=== PATIENT | female | born 2000 | race Caucasian/White ===

== ENCOUNTER 2019-04-26 19:49 | Emergency (ER) | payer BC, SELFPAY ==
--- NOTE | 2019-04-26 19:52 | ED.GENADULT ---
HPI - General Adult General Chief complaint: Upper Respiratory Infection Stated complaint: sore throat/burnett Time Seen by Provider: 04/26/19 19:52 Source: patient Mode of arrival: ambulatory Limitations: no limitations History of Present Illness HPI narrative: 18-year-old female patient presents to the [facility] with complaints of sore throat and fever that started today. Patient states she has been taking ibuprofen for symptoms. Denies any ear pain, runny nose, coughing, chest pain, shortness breath, abdominal pain, nausea, vomiting or diarrhea. Related Data Allergies Allergy/AdvReac Type Severity Reaction Status Date / Time AMOXICILLIN TRIHYDRATE Allergy Unknown RASH Uncoded 11/20/17 10:20 POTASSIUM CLAVULANATE Allergy Unknown RASH Uncoded 11/20/17 10:20 Review of Systems Review of Systems: Narrative: CONSTITUTIONAL: Positive fever, denies chills, or sweats. EYES: Denies visual changes, redness, or discharge. ENT: Denies rhinorrhea, congestion, positive sore throat, denies otalgia. CARDIOVASCULAR: Denies chest pain, palpitations, or edema. RESPIRATORY: Denies cough or dyspnea. GASTROINTESTINAL: Denies abdominal pain, nausea, vomiting, or diarrhea. GENITOURINARY: Denies dysuria or hematuria. SKIN: Denies rash or itching. MUSCULOSKELETAL: Denies back pain, joint pain, or myalgia. NEUROLOGIC: Denies headache, numbness, or weakness. PSYCHIATRIC: Denies anxiety or depression. PMFSH Comments At the time of my signature I agree with nursing past medical history, surgical, social, and family history. There is no relevant family history pertinent to the presenting complaint. Exam Narrative: Exam Narrative: GENERAL: Well-appearing, well-nourished, and in no acute distress. HEAD: Normocephalic, atraumatic. EYES: PERRLA and EOMI. ENT: Nares clear, no rhinorrhea or epistaxis. Mucous membranes moist. Posterior pharynx with 2+ tonsil enlargement, white exudates noted on bilateral sides and erythema. Bilateral TMs are clear with no erythema or foreign bodies in the canal. NECK: Supple. No lymphadenopathy CHEST: Clear to auscultation. No respiratory distress. HEART: Regular rate and rhythm. No murmur heard. Normal peripheral pulses. ABDOMEN: Soft, nontender, nondistended, normal active bowel sounds. EXTREMITIES: Normal range of motion. No edema. SKIN: Warm, dry, no rash. NEURO: No focal deficits. Alert and oriented x3. Course Vital Signs Vital signs: Vital Signs Temperature 38.1 C H 04/26/19 19:58 Pulse Rate 137 H 04/26/19 19:58 Respiratory Rate 20 04/26/19 19:58 Blood Pressure 145/88 H 04/26/19 19:58 Pulse Oximetry 100 04/26/19 19:58 Temperature 38.1 C H 04/26/19 19:58 Pulse Rate 137 H 04/26/19 19:58 Respiratory Rate 20 04/26/19 19:58 Blood Pressure 145/88 H 04/26/19 19:58 Pulse Oximetry 100 04/26/19 19:58 Vital signs reviewed. Medical Decision Making Differential Diagnosis Differential Diagnosis: Differential diagnosis: Allergic rhinitis, chronic sinusitis, tonsillitis, acute sinusitis, infectious mononucleosis, seasonal influenza, pertussis, diphtheria, meningococcal disease, viral syndrome, viral bronchitis, RSV. Discussed with patient that she is positive today for strep. Discussed with her we will discharge her home with an antibiotic and she can take Tylenol ibuprofen for pain, warm salt water gargles clean the back of the throat. Discussed with her I will write her off of work for tomorrow. Patient verbalized understanding denies any other questions or concerns at this time. Vital Signs Vital Signs: Vital Signs Temperature 38.1 C H 04/26/19 19:58 Pulse Rate 137 H 04/26/19 19:58 Respiratory Rate 04/26/19 19:58 Blood Pressure 145/88 H 04/26/19 19:58 Pulse Oximetry 100 04/26/19 19:58 Temperature 38.1 C H 04/26/19 19:58 Pulse Rate 137 H 04/26/19 19:58 Respiratory Rate 04/26/19 19:58 Blood Pressure 145/88 H 04/26/19 19:58 Pulse Oximetry 100 04/26/19 19:58
[2019-04-26 19:58] VITALS: BP 145/88; PULSE 137; RESP 20; TEMP 38.1; O2SAT 100
== END 2019-04-26 20:03 | disposition home or self-care (01) ==
PROVIDERS: Emergency Provider Nurse Practitioner Family; PCP Family Medicine
DX: J02.9 Acute pharyngitis, unspecified (principal)
CPT/HCPCS: 87880; 99213; G0463

== ENCOUNTER 2021-06-23 16:29 | Emergency (ER) | payer BC, SELFPAY ==
[2021-06-23 16:36] VITALS: BP 133/76; PULSE 90; RESP 20; TEMP 36.8; O2SAT 100
--- NOTE | 2021-06-23 17:03 | ED.URI ---
HPI - URI/Sore Throat General Chief Complaint: Upper Respiratory Infection Stated Complaint: sore throat congestion Time Seen by Provider: 06/23/21 16:57 Source: patient and RN notes reviewed Mode of arrival: ambulatory Limitations: no limitations History of Present Illness HPI Narrative: Patient presents today complaining of a 2-day history of sore throat, congestion, sweats and chills. Denies any additional symptoms to include cough, nausea, vomiting, diarrhea. Currently rates her pain 3/10 and has been taking Sudafed and ibuprofen with some relief. No recent antibiotic use. 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 MD elicited complaint: sore throat Related Data Home Medications Medication Instructions Recorded Confirmed levonorgestrel 20 mcg/24 hours (7 1 device INTRAUTERINE ONCE 05/25/21 05/25/21 yrs) 52 mg intrauterine device Allergies Allergy/AdvReac Type Severity Reaction Status Date / Time AMOXICILLIN TRIHYDRATE Allergy Unknown RASH Uncoded 06/23/21 16:46 POTASSIUM CLAVULANATE Allergy Unknown RASH Uncoded 06/23/21 16:46 Review of Systems Review of Systems: CONSTITUTIONAL: Denies body aches, fever. + Sweats, chills EYES: Denies visual changes, redness, or discharge. ENT: Denies rhinorrhea, or otalgia.+ Sore throat, congestion CARDIOVASCULAR: Denies chest pain, palpitations, or edema. RESPIRATORY: Denies cough or dyspnea. GASTROINTESTINAL: Denies abdominal pain, nausea, vomiting, or diarrhea. GENITOURINARY: Denies dysuria or hematuria. SKIN: Denies rash, itching, or wounds. MUSCULOSKELETAL: Denies back pain, joint pain, or myalgia. NEUROLOGIC: Denies headache, numbness, tingling, or weakness. PSYCH: Denies depression or anxiety. 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 Please see nursing chart for further information. There is no relevant family history pertinent to the presenting complaint Exam Narrative: GENERAL: Well-appearing, well-nourished, and in no acute distress. HEAD: Normocephalic, atraumatic. EYES: EOMI. No redness or drainage. Conjunctivae normal. ENT: Mucous membranes pink and moist. Nares clear. No rhinorrhea. TMs normal bilaterally. Throat erythematous with mild edema. No exudate. Uvula midline. NECK: Normal AROM. Supple. No lymphadenopathy. CHEST: No respiratory distress. Clear to auscultation. HEART: Regular rate and rhythm. No murmur appreciated. Normal peripheral pulses. EXTREMITIES: Normal range of motion. No edema. SKIN: Warm, dry, no rash. Capillary refill normal. Normal skin turgor. NEURO: No focal deficits. Alert and oriented x3. Gait steady. PSYCH: Normal affect. No signs of depression or anxiety. Course Course Level of Care: Express Care Visit Vital Signs Vital signs: Vital Signs Temperature 98.3 F 06/23/21 16:36 Pulse Rate 90 06/23/21 16:36 Respiratory Rate 20 06/23/21 16:36 Blood Pressure 133/76 06/23/21 16:36 Pulse Oximetry 100 06/23/21 16:36 Temperature 98.3 F 06/23/21 16:36 Pulse Rate 90 06/23/21 16:36 Respiratory Rate 20 06/23/21 16:36 Blood Pressure 133/76 06/23/21 16:36 Pulse Oximetry 100 06/23/21 16:36 Reviewed. Pt has bee
== END 2021-06-23 17:10 | disposition home or self-care (01) ==
PROVIDERS: Emergency Provider Nurse Practitioner; PCP Family Medicine
DX: J02.0 Streptococcal pharyngitis (principal)
CPT/HCPCS: 87880; 99213; G0463

== ENCOUNTER 2021-10-13 16:21 | Emergency (ER) | payer BC, SELFPAY ==
[2021-10-13 16:26] VITALS: BP 134/77; PULSE 88; RESP 16; TEMP 36.7; O2SAT 100
--- NOTE | 2021-10-13 16:42 | ED.URI ---
HPI - URI/Sore Throat General Chief Complaint: Upper Respiratory Infection Stated Complaint: Headache/Congestion/Sore Throat Time Seen by Provider: 10/13/21 16:42 Source: patient and RN notes reviewed Mode of arrival: ambulatory Limitations: no limitations History of Present Illness HPI Narrative: 21-year-old female presents to the [facility] with headache, congestion and sore throat. Known COVID exposure. Denies fevers. No treatment prior to arrival symptoms for less than 24 hours Reports taken a home COVID test which she reports is negative Related Data Home Medications Medication Instructions Recorded Confirmed levonorgestrel 20 mcg/24 hours (7 1 device intrauterine ONCE 05/25/21 05/25/21 yrs) 52 mg intrauterine device (Mirena) Allergies Allergy/AdvReac Type Severity Reaction Status Date / Time AMOXICILLIN TRIHYDRATE Allergy Unknown RASH Uncoded 08/22/21 14:08 POTASSIUM CLAVULANATE Allergy Unknown RASH Uncoded 08/22/21 14:08 Review of Systems Review of Systems: All systems reviewed & are unremarkable except as noted in HPI and below Constitutional: Constitutional: Reports no additional constitutional complaints, Denies chills and Denies fever(s) Eyes: Eyes: Reports no additional eye complaints ENT: Reports as per HPI, Reports nasal congestion and Reports sore throat Cardiovascular: Cardiovascular: Reports no additional cardiovascular complaints Respiratory: Respiratory: Reports no additional respiratory complaints Gastrointestinal: Gastrointestinal: Reports no additional gastrointestinal complaints Musculoskeletal: Musculoskeletal: Reports no additional musculoskeletal complaints Integumentary/Breasts: Skin/Breast: Reports system reviewed and no additional complaints, except as docu Neurologic: Reports system reviewed and no additional complaints, except as documented Psychiatric: Psychiatric: Reports no additional psychiatric complaints Allergic/Immunologic: Allergic/Immunologic: Reports no additional allergic/immunologic complaints [facility] Surgical History Surgical History H/O gynecological procedure mirena iud insertion 11/2016 Family History Family History Other Hypertension Social History Social History Smoking status: Never smoker Alcohol intake: never Substance use: current Substance use type: marijuana Other substance usage details: sometimes Additional living arrangements comments: single 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 There is no relevant family history pertinent to the patient complaint. Exam Const: General: healthy appearing, no acute distress and alert Nutritional Appearance: well nourished Orientation/consciousness: patient oriented x3 Limitations: no limitations HENMT: Head: normal to inspection Ears: external ears normal, TM's normal bilaterally and EAC's normal General nose exam: Normal external nose present Throat: posterior oropharynx normal and uvula midline Eyes: General: appearance normal, both eyes and all related structures Pupils: Equal, round and reactive pupils present Neck: Neck: normal visual inspection, no lymphadenopathy and no meningeal signs Chest: Chest palpation & inspection: normal inspection of the chest Resp: Effort & Inspection: normal respiratory effort and no use of accessory muscles Auscultation: clear to auscultation bilaterally, no crackles, no rales, no rhonchi and no wheezes Cardio: Rate: regular rate Rhythm: regular rhythm Back/Spine/Pelvis: Cervical Spine: normal cervical
== END 2021-10-13 17:06 | disposition home or self-care (01) ==
PROVIDERS: Emergency Provider Nurse Practitioner
DX: J06.9 Acute upper respiratory infection, unspecified (principal)
CPT/HCPCS: 99211; G0463

== ENCOUNTER 2022-09-01 17:05 | Emergency (ER) | payer BC, OTHER, SELFPAY ==
[2022-09-01 17:10] VITALS: BP 141/71; PULSE 96; RESP 20; TEMP 36.5; O2SAT 100
--- NOTE | 2022-09-01 17:10 | ED.URI ---
HPI - URI/Sore Throat General Chief Complaint: Upper Respiratory Infection Stated Complaint: sore throat Time Seen by Provider: 09/01/22 17:10 Source: patient Mode of arrival: ambulatory Limitations: no limitations History of Present Illness HPI Narrative: Krupa is a 22-year-old female patient presenting to the clinic today with complaints of a sore throat that just started this morning. She reports no fever, chills, body aches, or headache. 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 MD elicited complaint: sore throat Related Data Home Medications Medication Instructions Recorded Confirmed levonorgestrel 21 mcg/24 hours (8 1 device intrauterine ONCE 05/25/21 08/28/22 yrs) 52 mg intrauterine device (Mirena) calcium carbonate 500 mg calcium 500 mg PO DAILY 03/23/22 08/28/22 (1,250 mg) chewable tablet (Calcium 500) multivitamin (Daily Multi-Vitamin 1 tablet PO DAILY 03/23/22 08/28/22 tablet) Allergies Allergy/AdvReac Type Severity Reaction Status Date / Time cefdinir Allergy Unknown Verified 09/01/22 17:14 AMOXICILLIN TRIHYDRATE Allergy Unknown RASH Uncoded 08/28/22 11:39 POTASSIUM CLAVULANATE Allergy Unknown RASH Uncoded 08/28/22 11:39 Review of Systems Review of Systems: Pertinent positives per HPI. Patient denies any fever, chills, rash, headache, visual changes, dizziness, cough, shortness of breath, chest pain, palpitations, nausea, vomiting, diarrhea, constipation, abdominal pain, or any urinary issues. PMF Past Medical History Medical History Generalized anxiety disorder Hypothyroidism Surgical History Surgical History H/O gynecological procedure mirena iud insertion 11/2016 Family History Family History Grandparent History of skin cancer Maternal Grandmother Hypertension Paternal Grandfather Social History Social History Smoking status: Never smoker Alcohol intake: never Substance use: current Substance use type: marijuana Other substance usage details: sometimes Lack of Transportation: No Lack of Food: Never True Current Housing: I Have Housing Concerned About Future Housing: No Difficulty Paying Gas/Electric Bills: No Difficulty Paying for Meds: No Currently Unemployed: No Education: Bachelor's Degree Difficulty w/ Childcare or Family Care: No Living arrangements: other Additional living arrangements comments: Lives with fianc? 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 There is no relevant family history pertinent to the patient complaint. Exam Narrative: General: Well-developed, well nourished, in no apparent distress Head: Normocephalic, atraumatic Eyes: Pupils equally round and reactive to light bilaterally, EOM intact, sclera and conjunctive clear, no discharge, lids normal Ears: TMs intact and clear, ear canals clear, no drainage, grossly hearing normal. Nose: Nares patent, no discharge, no inflammation, no sinus tenderness. Mouth: Oral pharynx red without lesions or masses, good dentition, MMM. Neck: Supple, trachea midline, no enlargement of anterior or posterior cervical nodes, no thyroid masses or goiter palpable. Cardio: Regular rate and rhythm, s1 and s2 normal, no murmur appreciated. Resp: Clear to auscultation bilaterally, no rhonchi, rales, wheezing or rubs Course Course Emergenc
== END 2022-09-01 17:33 | disposition home or self-care (01) ==
PROVIDERS: Emergency Provider Nurse Practitioner Family; PCP Family Medicine
DX: J02.9 Acute pharyngitis, unspecified (principal); F12.90 Cannabis use, unspecified, uncomplicated; E03.9 Hypothyroidism, unspecified
CPT/HCPCS: 87081; 87880; 99213; G0463

== ENCOUNTER 2022-09-24 09:01 | Outpatient (CLI) | payer BC, OTHER, SELFPAY ==
[2022-09-24 09:37] LABS: CRP 0.7 mg/dL (<1.0)
[2022-09-24 09:50] LABS: Erythrocyte Sedimentation Rate 15 mm/hr (0-20)
[2022-09-27 19:13] LABS: Immunoglobulin A 122 mg/dL (47-310); TTG IGA AB <1.0 U/mL (<15.0)
== END 2022-09-24 09:02 | disposition home or self-care (01) ==
LOC: ANHLAB 09:03
PROVIDERS: PCP Physician Assistant; Visit Provider Nurse Practitioner
DX: K21.9 Gastro-esophageal reflux disease without esophagitis (principal); R11.0 Nausea; R19.4 Change in bowel habit; R19.7 Diarrhea, unspecified; R68.81 Early satiety
CPT/HCPCS: 36415; 82784; 84443; 85652; 86140; 86364

== ENCOUNTER 2022-10-17 00:18 | Day surgery (SDC) | payer OTHER, BC, SELFPAY ==
[2022-10-05 10:48] VITALS: BMI 34.4
[2022-10-17 09:39] VITALS: BP 138/92; PULSE 121; RESP 17; TEMP 36.4; O2SAT 100; BMI 32.7
[2022-10-17] MEDS: LACTATED RINGERS 1,000 ML 150 ML IV CONT (10:05)
--- NOTE | 2022-10-17 10:12 | WPDANESEPPF ---
Anes - Initial Pre Proc Eval Procedure: Operation Date: 10/17/22 11:00 Proposed Procedures p Esophagogastroduodenoscopy & Colonoscopy - Trevor Reid MD Date/Time: 10/17/22 10:12 Surgeon: Trevor Reid MD Pre Op Diagnosis: GERD,Diarrhea,Nausea,change in bowel habits, Patient Data Age: 22 Gender: F Height: 1.63 m Weight: 86.4 kg Last Vital Signs Temp 97.5 F L 10/17/22 09:39 Pulse 121 H 10/17/22 09:39 Resp 17 10/17/22 09:39 BP 138/92 H 10/17/22 09:39 Pulse Ox 100 10/17/22 09:39 O2 Del Method Room Air 10/17/22 09:39 Allergies Allergy/AdvReac Type Severity Reaction Status Date / Time cefdinir Allergy Unknown Verified 10/17/22 09:35 AMOXICILLIN TRIHYDRATE Allergy Unknown RASH Uncoded 10/17/22 09:35 POTASSIUM CLAVULANATE Allergy Unknown RASH Uncoded 10/17/22 09:35 Home Medications Medication Instructions Recorded Confirmed Type levonorgestrel 21 mcg/24 hours (8 1 device intrauterine ONCE 05/25/21 10/17/22 History yrs) 52 mg intrauterine device (Mirena) escitalopram oxalate 10 mg tablet 10 mg PO DAILY #90 tabs 03/23/22 10/17/22 Rx multivitamin (Daily Multi-Vitamin 1 tablet PO DAILY 03/23/22 10/17/22 History tablet) dicyclomine 20 mg tablet 20 mg PO .every 6 hours PRN 09/24/22 10/17/22 Rx Abdominal pain #90 tabs famotidine 40 mg tablet 40 mg PO DAILY #30 tabs 09/24/22 10/17/22 Rx Patient hx anesthesia problems: none Family hx anesthesia problems: none Results Review: All pre-operative results and documents have been reviewed as part of the pre-operative evaluation. [facility] Past Medical History Medical History (Updated 09/24/22 @ 09:02 by Adilene Cruz APRN) Change in bowel habits Diarrhea Early satiety Generalized anxiety disorder GERD (gastroesophageal reflux disease) Hypothyroidism Nausea Obesity Surgical History Surgical History H/O gynecological procedure mirena iud insertion 11/2016 Family History Family History Grandparent History of skin cancer Maternal Grandmother Hypertension Paternal Grandfather Social History Social History Smoking status: Never smoker Alcohol intake: never Substance use: current Substance use type: marijuana Other substance usage details: sometimes Lack of Transportation: No Lack of Food: Never True Current Housing: I Have Housing Concerned About Future Housing: No Difficulty Paying Gas/Electric Bills: No Difficulty Paying for Meds: No Currently Unemployed: No Education: Bachelor's Degree Difficulty w/ Childcare or Family Care: No Living arrangements: with family Additional living arrangements comments: Lives with fijill? 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 Gender identity (if verbalized by the patient): Female Sexual Orientation (if Verbalized by the Patient): Straight or Heterosexual Spiritual care concerns: No Anes - Eval Final PreProcedure Day of Procedure 10/17/22 10:12 Patient weight: normal Heart: regular rate and rhythm Lungs: clear to auscultation Airway: Mallampati scale class II Neurological: alert and oriented Last oral intake: >/= 8 hours ASA classification: II Emergent: no Anesthetic plan: proceed Anesthesia type and monitoring: general GIVS and standard monitoring Results Review: All pre-operative results and documents have been reviewed as part of the pre-operative evaluation. Informed Consent: The patient's anesthetic plan and its attendant risks and benefits were discussed with the patient/family/POA. Questions were solicited and answers provided to the satisfaction of the patient/family/POA.
--- NOTE | 2022-10-17 10:32 | WPDHPUPDATE1 ---
History and Physical Update Update Date/Time: 10/17/22 10:32 History and Physical has been reviewed, including an updated exam of the patient. There are NO changes in the patient's condition. Risks, benefits, and alternatives have been discussed and questions answered. Patient agrees to proceed with procedure.
[2022-10-17] MEDS: BENZOCAINE (*SP) 60 ML SPRAY CAN (HURRICAINE) 1 SPRAY MUCOUS MEM (10:37)
--- NOTE | 2022-10-17 10:46 | SUR.OPER ---
EGD COMPLETED AT 1046, COLONOSCOPY STARTED 1047
[2022-10-17 10:56] VITALS: BP 85/49; PULSE 92; RESP 32; O2SAT 97
[2022-10-17 11:06] VITALS: BP 97/63; PULSE 74; RESP 18; O2SAT 97
[2022-10-17 11:16] VITALS: BP 115/80; PULSE 81; RESP 23; O2SAT 96
== END 2022-10-17 11:26 | disposition home or self-care (01) ==
PROVIDERS: PCP Physician Assistant; Visit Provider Internal Medicine Gastroenterology
PROC: 0DJ08ZZ Inspection of Upper Intestinal Tract, Via Natural or Artificial Opening Endoscopic (ICD-10-PCS; CPT 43235; principal; 2022-10-17 11:00)
DX: R19.7 Diarrhea, unspecified (principal); K63.5 Polyp of colon; K64.8 Other hemorrhoids; K29.70 Gastritis, unspecified, without bleeding; E03.9 Hypothyroidism, unspecified; K21.9 Gastro-esophageal reflux disease without esophagitis; F41.1 Generalized anxiety disorder; E66.9 Obesity, unspecified; Z68.32 Body mass index [BMI] 32.0-32.9, adult; F12.90 Cannabis use, unspecified, uncomplicated
CPT/HCPCS: 45380; 43239; 88305; J2704; J7120

== ENCOUNTER 2022-11-28 07:57 | Outpatient (CLI) | payer BC, OTHER, SELFPAY ==
--- NOTE | ~2022-11-28 | US_ITS ---
US abdomen limited INDICATION: Nausea and diarrhea PROCEDURE: Realtime right upper abdominal ultrasound. COMPARISON: No prior studies for comparison. FINDINGS: The pancreas is normal without focal mass or pancreatic ductal dilation. Liver echotexture is normal without focal mass or intrahepatic biliary dilatation. There is normal directional flow i n the portal vein. The gallbladder is normal without stones, gallbladder wall thickening or pericholecystic fluid. Comm on bile duct measures 3.7 mm. No sonographic Mchugh's sign. IMPRESSION: 1: Normal limited abdominal ultrasound. Reviewed, dictated and finalized at location B.
--- NOTE | ~2022-11-28 | NM_ITS ---
EXAMINATION: NM hepatobiliary wo pharm DATE: 11/28/2022 11:41 INDICATION: Right upper quadrant cramping. Postprandial diarrhea. COMPARISON: Abdomen ultrasound 11/28/2022 TECHNIQUE: 5.2 mCi Tc-99m mebrofenin (Choletec) was administered intravenously. Scintigraphic images of the abdomen were obtained for one hour and 15 minutes. Then, the patient drank 8 oz Ensure, and i maging was continued for 60 minutes. FINDINGS: There is normal clearance of radiotracer from the blood pool. There is homogeneous tracer u ptake by the liver. Activity progresses to the bowel and gallbladder. Gallbladder ejection fraction (GBEF) was 30%. Note that with this technique, normal GBEF >= 33%. IMPRESSION: 1. Low gallbladder ejection fraction, consistent with gallbladder dysfunction and/or chronic cholecy stitis. Reviewed, dictated and finalized at location A. IMPRESSION: 1. Low gallbladder ejection fraction, consistent with gallbladder dysfunction and/or chronic cholecystitis.
== END 2022-11-28 07:58 | disposition home or self-care (01) ==
PROVIDERS: PCP Physician Assistant; Visit Provider Nurse Practitioner
DX: R19.7 Diarrhea, unspecified (principal); R10.11 Right upper quadrant pain
CPT/HCPCS: 76705; 78226; A9537

== ENCOUNTER 2022-12-21 15:19 | Outpatient (CLI) | payer BC, OTHER, SELFPAY ==
[2022-12-21 16:41] LABS: Alanine Aminotransferase 16 U/L (6-35); Albumin Level 4.5 g/dL (3.5-5.1); Alkaline Phosphatase 62 U/L (38-126); Amylase 89 U/L (30-110); Aspartate Amino Transferase 20 U/L (14-36); Bilirubin,Total 0.6 mg/dL (0.2-1.3); Lipase 105 U/L (23-300)
== END 2022-12-21 15:20 | disposition home or self-care (01) ==
LOC: ANHLAB 15:22
PROVIDERS: PCP Physician Assistant; Visit Provider Surgery
DX: Z01.818 Encounter for other preprocedural examination (principal); K81.1 Chronic cholecystitis
CPT/HCPCS: 36415; 80076; 82150; 83690; 86850; 86900; 86901

== ENCOUNTER 2022-12-27 01:21 | Day surgery (SDC) | payer BC, OTHER, SELFPAY ==
[2022-12-19 14:14] VITALS: BMI 31.7
--- NOTE | 2022-12-19 14:18 | PC.NURSE ---
Report to the Outpatient Waiting Room, entrance under the green pavilion located off [facility], at time 7:00 on date 12/27/22. Planned Procedure Time: 9:00. Time changes happen often and if your time is changed the preop area will call you the afternoon before. - You and your visitor will be asked to self-screen and do not enter if you have any COVID symptoms. - A mask is optional within the hospital at this time. Patients may have clear liquids (water, carbonated beverages, clear teas, apple juice) until 3 hours prior to surgery (6:00) with a maximum of 20 ounces. - No food from midnight until time of surgery Take the following medications with a SIP of water the morning of surgery: LEXAPRO DO NOT STOP ANY OF YOUR OTHER PRESCRIPTION MEDICATIONS PRIOR TO SURGERY ?EXCEPT THE FOLLOWING Medications to discontinue per physician: VITAMINS Date to take last dose: 12/23/22 Please no make-up, nail dutch, hairspray, perfume, deodorant, or body powder the day of surgery. No jewelry (including any body piercings) or valuables the day of surgery, leave them at home. Please take a shower or bath the night before, or the morning of, surgery with an antibacterial soap. Wear comfortable, loose fitting clothing. - Jewelry must be removed prior to entering the operating room. Rings and piercings that are not removed may be cut off. - The hospital will not accept responsibility for valuables. - Please leave all valuables, including medications, at home the day of surgery. If you are going home after surgery, a licensed [place] driver must drive you home. - NO public transportation without another adult if you receive anesthesia. - We recommend that an adult stay with you for 24 hours following discharge. - We also recommend that you do not drive, make important decision, drink alcoholic beverages, or take any drugs that were not prescribed by your health care provider for at least 24 hours after your discharge time. Follow any additional instructions given to you from your surgeon. If you or anyone in your household have experienced Covid symptoms in the past week, please notify your surgeon or the nurse liaison at the phone number below for possible testing. Telephone instructions given to PT - SANATNA HELLER and asked if any additional questions and then verbalized understanding. Patient advised to call surgeon office or pre surgery nurse liaison [phone] if any additional questions.
[2022-12-27] VITALS (10 sets, daily range): BP systolic 120–145; BP diastolic 64–90; PULSE 64–99; RESP 12–21; TEMP 36.3–36.6; O2SAT 96–100
[2022-12-27] MEDS: LACTATED RINGERS 1,000 ML 30 ML IV CONT ×2 (06:51→09:09)
[2022-12-27] MEDS: ACETAMINOPHEN 500 MG TABLET 1000 MG PO (06:52)
[2022-12-27] MEDS: KETOROLAC 15 MG/ML VIAL (*BKC) IV PUSH (06:53)
--- NOTE | 2022-12-27 07:14 | WPDANESEPPF ---
Anes - Initial Pre Proc Eval Procedure: Operation Date: 12/27/22 07:30 Proposed Procedures p Laparoscopic Cholecystectomy - Radha Mccrary MD Date/Time: 12/27/22 07:14 Surgeon: Radha Mccrary MD Pre Op Diagnosis: Chr Cholecystitis Patient Data Age: 22 Gender: F Height: 1.63 m Weight: 84.8 kg Last Vital Signs Temp 97.9 F 12/27/22 07:00 Pulse 99 12/27/22 07:00 Resp 16 12/27/22 07:00 BP 145/84 H 12/27/22 07:00 Pulse Ox 99 12/27/22 07:00 O2 Del Method Room Air 12/27/22 07:00 Allergies Allergy/AdvReac Type Severity Reaction Status Date / Time cefdinir Allergy Intermediate Hives Verified 12/27/22 06:25 Home Medications Medication Instructions Recorded Confirmed Type levonorgestrel 21 mcg/24 hours (8 1 device intrauterine ONCE 05/25/21 12/19/22 History yrs) 52 mg intrauterine device (Mirena) escitalopram oxalate 10 mg tablet 10 mg PO DAILY #90 tabs 03/23/22 12/19/22 Rx multivitamin (Daily Multi-Vitamin 1 tablet PO DAILY 03/23/22 12/19/22 History tablet) Patient hx anesthesia problems: none Family hx anesthesia problems: none Results Review: All pre-operative results and documents have been reviewed as part of the pre-operative evaluation. [facility] Past Medical History Medical History (Updated 12/05/22 @ 10:23 by Remedios Pearce CMA) Anxiety Biliary dyskinesia Change in bowel habits Diarrhea Early satiety Gastritis Generalized anxiety disorder GERD (gastroesophageal reflux disease) Hyperplastic colon polyp Hypothyroidism Nausea Obesity Right upper quadrant pain Surgical History Surgical History H/O gynecological procedure mirena iud insertion 11/2016 Family History Family History Grandparent History of skin cancer Maternal Grandmother Hypertension Paternal Grandfather Social History Social History Smoking status: Never smoker Alcohol intake: current Alcohol use details: RARE Substance use: current Substance use type: marijuana Other substance usage details: sometimes Lack of Transportation: No Lack of Food: Never True Current Housing: I Have Housing Concerned About Future Housing: No Difficulty Paying Gas/Electric Bills: No Difficulty Paying for Meds: No Currently Unemployed: No Education: Bachelor's Degree Difficulty w/ Childcare or Family Care: No Living arrangements: with family Additional living arrangements comments: [place] 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 Gender identity (if verbalized by the patient): Female Sexual Orientation (if Verbalized by the Patient): Straight or Heterosexual Spiritual care concerns: No Anes - Eval Final PreProcedure Day of Procedure 12/27/22 07:14 Patient weight: obese Heart: regular rate and rhythm Lungs: clear to auscultation Airway: Mallampati scale class II Neurological: alert and oriented Last oral intake: >/= 8 hours ASA classification: II Emergent: no Anesthetic plan: proceed Anesthesia type and monitoring: general ETT and standard monitoring Results Review: All pre-operative results and documents have been reviewed as part of the pre-operative evaluation. Informed Consent: The patient's anesthetic plan and its attendant risks and benefits were discussed with the patient/family/POA. Questions were solicited and answers provided to the satisfaction of the patient/family/POA.
--- NOTE | 2022-12-27 07:14 | WPDHPUPDATE1 ---
History and Physical Update Update Date/Time: 12/27/22 07:14 History and Physical has been reviewed, including an updated exam of the patient. There are NO changes in the patient's condition. Risks, benefits, and alternatives have been discussed and questions answered. Patient agrees to proceed with procedure.
[2022-12-27] MEDS: CLINDAMYCIN 900 MG/D5W 50 ML 900 MG/50 ML PIGGYBACK 50 MG IVPB (07:26)
[2022-12-27] MEDS: BUPIVACAINE/EPINEPHRINE 0.5% 50 ML VIAL 30 ML INFILTRATE (07:53)
--- NOTE | 2022-12-27 08:16 | W.PM.PROC2 ---
Procedure Note - Detailed Date of Procedure 12/27/22 Pre-op Diagnosis Chronic Cholecystitis Post-op Diagnosis Same Procedure Performed Laparoscopic cholecystectomy Surgeon Radha Mccrary MD Anesthesia General Indications 22-year-old female presented to the office complaining of postprandial right upper quadrant abdominal pain associated with nausea and vomiting. Workup including imaging significant for chronic cholecystitis. Findings Chronic cholecystitis Description of Procedure The patient was taken to the operating room placed in the supine position. After adequate induction of general anesthesia, the patient was prepped and draped in normal sterile fashion. A time-out was then performed to verify the patient's identity as well as the procedure being performed. I then made a 5 mm incision in the infraumbilical region. Through this, a Veress needle was placed into the peritoneal cavity and CO2 gas was then insufflated. After adequate pneumoperitoneum was achieved, the Veress needle was removed and a 5 mm optiview trocar was placed through this incision under direct visualization. I then placed the laparoscope through this trocar site and under direct visualization placed a further 12 mm subxiphoid port as well as 2 additional 5 mm ports in the right upper abdomen. The gallbladder was then identified and was noted to be moderately inflamed and distended. I was able to place a grasper at the dome of the gallbladder and this was retracted anterior and cephalad up over the liver. A 2nd retractor was then placed at the infundibulum and retracted laterally, this allowed visualization of the triangle of Calot. I then was able to visualize the cystic duct in its entirety from its proximal insertion into the gallbladder, to its distal junction with the common hepatic/common bile duct junction. At this point, I carefully skeletonized the proximal cystic duct with the [place] dissector. I then clipped and transected the proximal cystic duct. Next I visualized the cystic artery. Again the artery was skeletonized, clipped, and transected. I then used the Bovie cautery to take down the peritoneal attachments of the gallbladder off the liver bed. This was somewhat difficult given the amount of inflammation in the posterior space. Once the gallbladder specimen was completely detached, an endo-pouch was placed through the 12 mm port site. I then placed the gallbladder specimen into the Endo pouch and removed the endo-pouch from the 12 mm port site. The specimen will now be sent to pathology for further review. I then copiously irrigated the right upper quadrant. Some mild oozing was noted in the liver bed and this was controlled with the bovie cautery. Hemostasis was noted in the liver bed, the clips were noted to be in good position on both the cystic duct stump and the cystic artery stump. No other pathology was noted in the right upper quadrant. I then moved the laparoscope to the subxiphoid port. No iatrogenic injury or other pathology was noted in the lower abdomen. I then closed the 12 mm trocar site under direct visualization using the Bakari cone and 0 Vicryl suture. At this point, the abdomen was desufflated and all ports removed. All port sites were then closed with 4.O Monocryl subcuticular sutures. Dermabond was placed on each incision. The patient tolerated the procedure well, was extubated in the operating room postoperative and will be transferred to the recovery room in stable condition Estimated Blood Loss 5 Drains No Packing No Pathology Yes Complications No immediate complications Condition Stable Disposition PACU [facility] Billing Surgery - Charge Forward: Surgery Billing
[2022-12-27] MEDS: fentaNYL CITRATE INJ (*CRX) 100 MCG/2 ML VIAL 25 MCG IV PUSH ×4 (08:29→08:49)
[2022-12-27] MEDS: ONDANSETRON INJ 4 MG/2 ML VIAL IV PUSH (09:08)
[2022-12-27] MEDS: oxyCODONE HCL (*CRX) 5 MG TAB IR PO (09:20)
[2022-12-27] MEDS: diphenhydrAMINE HCl INJ 50 MG/ML VIAL 12.5 MG IV PUSH ×2 (10:06→10:20)
[2022-12-27] MEDS: SCOPOLAMINE 1.5 MG PATCH TRANSDERM (10:07)
== END 2022-12-27 10:48 | disposition home or self-care (01) ==
PROVIDERS: PCP Physician Assistant; Visit Provider Surgery
PROC: 0FT44ZZ Resection of Gallbladder, Percutaneous Endoscopic Approach (ICD-10-PCS; CPT 47562; principal; 2022-12-27 07:30)
DX: K81.1 Chronic cholecystitis (principal); F41.1 Generalized anxiety disorder; F12.90 Cannabis use, unspecified, uncomplicated; E66.9 Obesity, unspecified; Z68.32 Body mass index [BMI] 32.0-32.9, adult
CPT/HCPCS: 47562; 88304; A9270; J1100; J1200; J1885; J2250; J2405; J2704; J3010; J7030; J7120

== ENCOUNTER 2023-03-28 09:52 | Emergency (ER) | payer BC, OTHER, SELFPAY ==
[2023-03-28 10:06] VITALS: BP 151/66; PULSE 82; RESP 18; TEMP 36.6; O2SAT 99
--- NOTE | 2023-03-28 10:58 | ED.URI ---
HPI - URI/Sore Throat General Chief Complaint: Upper Respiratory Infection Stated Complaint: Concestion/Sore Throat/Chest Congestion Time Seen by Provider: 03/28/23 10:51 Source: patient and RN notes reviewed Mode of arrival: ambulatory Limitations: no limitations History of Present Illness HPI Narrative: Patient presents today with a 3 day history of congestion, sore throat, headaches, chills and sweats, chest congestion, subjective fever. She has been taking DayQuil and NyQuil with mild relief and currently rates her pain 5/10. 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 Related Data Allergies Allergy/AdvReac Type Severity Reaction Status Date / Time cefdinir Allergy Intermediate Hives Verified 03/28/23 10:31 Review of Systems Review of Systems: CONSTITUTIONAL: Denies body aches. + subjective fever, chills, sweats, fatigue EYES: Denies visual changes, redness, or discharge. ENT: Denies rhinorrhea, otalgia.+ sore throat, congestion CARDIOVASCULAR: Denies chest pain, palpitations, or edema. RESPIRATORY: Denies cough or dyspnea.+ chest congestion GASTROINTESTINAL: Denies abdominal pain, nausea, vomiting, or diarrhea. GENITOURINARY: Denies dysuria or hematuria. SKIN: Denies rash, itching, or wounds. MUSCULOSKELETAL: Denies back pain, joint pain, or myalgia. NEUROLOGIC: Denies numbness, tingling, or weakness.+ headache PSYCH: Denies depression or anxiety. [facility] Past Medical History Medical History Anxiety Biliary dyskinesia Change in bowel habits Diarrhea Early satiety Gastritis Generalized anxiety disorder GERD (gastroesophageal reflux disease) Hyperplastic colon polyp Hypothyroidism Nausea Obesity Right upper quadrant pain Surgical History Surgical History H/O gynecological procedure mirena iud insertion 11/2016 History of laparoscopic cholecystectomy 12/27/22 PDC Family History Family History Grandparent History of skin cancer Maternal Grandmother Hypertension Paternal Grandfather Social History Social History Smoking status: Never smoker Alcohol intake: current Alcohol use details: RARE Substance use: current Substance use type: marijuana Other substance usage details: sometimes Lack of Transportation: No Lack of Food: Never True Current Housing: I Have Housing Concerned About Future Housing: No Difficulty Paying Gas/Electric Bills: No Difficulty Paying for Meds: No Currently Unemployed: No Education: Bachelor's Degree Difficulty w/ Childcare or Family Care: No Living arrangements: with family Additional living arrangements comments: [place] 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 Please see nursing chart for further information. There is no relevant family history pertinent to the presenting complaint Exam Narrative: GENERAL: Mildly ill-appearing, well-nourished, and in no acute distress. HEAD: Normocephalic, atraumatic. EYES: EOMI. No redness or drainage. Conjunctivae normal. ENT: Mucous membranes pink and moist. Nares congested. No rhinorrhea. TMs normal bilaterally. Throat erythematous and mildly edematous without exudate. Uvula midline. NECK: Normal AROM. Supple. No lymphadenopathy. CHEST: No respiratory distress. Clear to auscultation. HEART: Regular rate and rhythm. No murmur appreciated. EXTREMITIES: Normal range of motion. No edema. SKIN: Warm, dry, no elaine
== END 2023-03-28 11:07 | disposition home or self-care (01) ==
PROVIDERS: Emergency Provider Nurse Practitioner; PCP Physician Assistant
DX: B34.9 Viral infection, unspecified (principal); E03.9 Hypothyroidism, unspecified; Z20.822 Contact with and (suspected) exposure to COVID-19
CPT/HCPCS: 87426; 87804; 99213; G0463

== ENCOUNTER 2023-12-03 18:02 | Emergency (ER) | payer OTHER, BC, SELFPAY ==
[2023-12-03 18:16] VITALS: BP 135/85; PULSE 94; RESP 20; TEMP 36.8; O2SAT 100
--- NOTE | 2023-12-03 18:54 | ED.URI ---
HPI - URI/Sore Throat General Chief Complaint: Upper Respiratory Infection Stated Complaint: throat/head/chest congestion Source: patient and RN notes reviewed Mode of arrival: ambulatory Limitations: no limitations History of Present Illness HPI Narrative: 23-year-old female presented for complaint of nasal congestion and drainage, sore throat cough over the past 4 days. Denies shortness of breath, wheezing, nausea, vomiting, fevers or chills. Taking Zyrtec for symptoms. Denies known sick contacts. MD elicited complaint: cough Related Data Allergies Allergy/AdvReac Type Severity Reaction Status Date / Time cefdinir Allergy Intermediate Hives Verified 12/03/23 18:50 Review of Systems Review of Systems: CONSTITUTIONAL: Denies malaise, chills, sweats, fever EYES: Denies visual changes, redness, or discharge ENT: Reports rhinorrhea, congestion, sinus pain, otalgia, sore throat CARDIOVASCULAR: Denies chest pain, palpitations, edema RESPIRATORY: Reports cough, post nasal drainage. Denies dyspnea GASTROINTESTINAL: Denies abdominal pain, nausea, vomiting, diarrhea SKIN: Denies rash or itching MUSCULOSKELETAL: denies myalgia NEUROLOGIC: Denies headache [facility] Past Medical History Medical History Anxiety Biliary dyskinesia Change in bowel habits Diarrhea Early satiety Gastritis Generalized anxiety disorder GERD (gastroesophageal reflux disease) Hyperplastic colon polyp Hypothyroidism Nausea Obesity Right upper quadrant pain Surgical History Surgical History H/O gynecological procedure 09/24/23 Mirena IUD removal mirena iud insertion 11/2016 History of laparoscopic cholecystectomy 12/27/22 PDC Family History Family History Grandparent History of skin cancer Maternal Grandmother Hypertension Paternal Grandfather Social History Social History Smoking status: Never smoker Alcohol intake: current Alcohol use details: RARE Substance use: current Substance use type: marijuana Other substance usage details: sometimes Do You Feel Safe in your Home?: Yes Lack of Transportation: No Lack of Food: Never True Current Housing: I Have Housing Concerned About Future Housing: No Difficulty Paying Gas/Electric Bills: No Difficulty Paying for Meds: No Currently Unemployed: No Education: Bachelor's Degree Difficulty w/ Childcare or Family Care: No Living arrangements: with family Additional living arrangements comments: [employer] 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 HEAD: Normocephalic EYES: PERRLA, conjunctivae clear ENT: Mucous membranes moist. Nasal congestion.TM pearly bustamante with dull light reflex bilaterally; no tragal tenderness. Oropharynx mildly erythematous without lesions or exudate, no drooling, no hoarseness, no trismus, uvula midline. No tripod positioning, muffled voice, soft palate or pharyngeal wall bulging NECK: Supple. No lymphadenopathy CHEST: Clear to auscultation, breath sounds equal. No wheezing, rhonchi, rales, or stridor. No respiratory distress, speaks in full sentences. HEART: Regular rate and rhythm. No murmur heard. SKIN: Warm, dry, no rash. NEURO: Alert and oriented x3. PSYCH: Normal mood and affect Course Course Emergency Course: Patient is aware of diagnosis, understands and agrees to treatment plan. Anticipatory guidance given. Patient agrees to follow-up as directed and is aware of reasons to seek care at the emergency departmen
[2023-12-03 19:08] LABS: EDCOVIDSCREEN Negative (Negative); EDINFLUASCREEN Negative (Negative); EDINFLUBSCREEN Negative (Negative); EDSTREPNEGPOS1 Negative (Negative)
== END 2023-12-03 19:00 | disposition home or self-care (01) ==
PROVIDERS: Emergency Provider Nurse Practitioner Family
DX: J06.9 Acute upper respiratory infection, unspecified (principal); Z20.822 Contact with and (suspected) exposure to COVID-19; F12.90 Cannabis use, unspecified, uncomplicated; K21.9 Gastro-esophageal reflux disease without esophagitis; E03.9 Hypothyroidism, unspecified; E66.9 Obesity, unspecified
CPT/HCPCS: 87081; 87426; 87804; 87880; 99213; G0463

== ENCOUNTER 2023-12-05 15:52 | Outpatient (CLI) | payer OTHER, BC, SELFPAY ==
[2023-12-05 16:06] LABS: Hematocrit 42.2 % (37.0-47.0); Hemoglobin 14.3 g/dL (12.0-15.0); Mean Corpuscular HGB Conc 33.9 g/dl (32-36); Mean Corpuscular Hemoglobin 29.7 pg (26-34); Mean Corpuscular Volume 87.6 fl (80-100); Mean Platelet Volume 9.7 fl (7.4-10.4); Platelet Count Result 272 k/mm3 (150-375); Red Blood Count 4.82 M/mm3 (4.2-5.4); Red Cell Distribution Width 12.2 % (11.5-14.5); White Blood Count 9.4 K/mm3 (4.5-10.0)
[2023-12-05 16:20] LABS: Alanine Aminotransferase 29 U/L (6-35); Albumin Level 4.5 g/dL (3.5-5.1); Alkaline Phosphatase 69 U/L (38-126); Anion Gap 8 mmol/L (4-12); Aspartate Amino Transferase 27 U/L (14-36); Bilirubin,Total 0.5 mg/dL (0.2-1.3); Blood Urea Nitrogen 10 mg/dL (7-17); CRP 2.9 mg/dL (<1.0); Calcium 9.5 mg/dL (8.4-10.2); Carbon Dioxide 27 mmol/L (22-30); Chloride 102 mmol/L (98-107); Estimated Glomerular Filt Rate > 60; Glucose 97 mg/dL (65-110); Potassium 3.7 mmol/L (3.4-5.0); Sodium 137 mmol/L (137-145)
[2023-12-05 16:34] LABS: Erythrocyte Sedimentation Rate 16 mm/hr (0-20)
[2023-12-05 18:43] LABS: Thyroid Stimulating Hormone Reflex 0.584 uIU/mL (0.465-4.68)
[2023-12-09 14:59] LABS: Immunoglobulin A 116 mg/dL (47-310); TTG IGA AB <1.0 U/mL
== END 2023-12-05 15:53 | disposition home or self-care (01) ==
LOC: ANHLAB 15:53
PROVIDERS: Visit Provider Nurse Practitioner
DX: R19.7 Diarrhea, unspecified (principal); R19.4 Change in bowel habit
CPT/HCPCS: 36415; 80053; 82784; 84443; 85027; 85652; 86140; 86364

== ENCOUNTER 2023-12-11 07:32 | Outpatient (CLI) | payer BC, OTHER, SELFPAY | END 2023-12-11 07:33 | disposition home or self-care (01) | LOC: ANHLAB 07:33 | PROVIDERS: Visit Provider Nurse Practitioner | DX: R19.7 Diarrhea, unspecified (principal); R19.4 Change in bowel habit | CPT/HCPCS: 82653; 83993; 87045; 87269; 87427; 87449; 87493 ==

== ENCOUNTER 2023-12-24 15:16 | Emergency (ER) | payer OTHER, BC, SELFPAY ==
[2023-12-24 15:24] VITALS: BP 113/88; PULSE 92; RESP 16; TEMP 36.7; O2SAT 100
--- NOTE | 2023-12-24 15:38 | ED_ITS ---
HPI - URI/Sore Throat General Chief Complaint: Upper Respiratory Infection Stated Complaint: cough/congestion History of Present Illness HPI Narrative: 23-year-old female presented for complaint of nasal congestion, cough, and right ear pain over the past 7 days. 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 She denies shortness of breath, wheezing, fatigue, nausea, vomiting or fever. Reports she had nasal congestion and drainage 3 weeks ago, for which she was seen and not prescribed abx at that time. Symptoms were improved for a about one week. Currently takin Xifaxan for IBS. Related Data Allergies Allergy/AdvReac Type Severity Reaction Status Date / Time cefdinir Allergy Intermediate Hives Verified 12/24/23 15:34 Review of Systems Review of Systems: CONSTITUTIONAL: Denies body aches, fever, chills, or sweats. EYES: Denies visual changes, redness, or discharge. ENT: Reports rhinorrhea, congestion, right otalgia. CARDIOVASCULAR: Denies chest pain, palpitations, or edema. RESPIRATORY: reports cough Denies dyspnea. GASTROINTESTINAL: Denies abdominal pain, nausea, vomiting, reports diarrhea. SKIN: Denies rash NEUROLOGIC: Denies headache [facility] Past Medical History Medical History Anxiety Biliary dyskinesia Change in bowel habits Diarrhea Early satiety Gastritis Generalized anxiety disorder GERD (gastroesophageal reflux disease) Hyperplastic colon polyp Hypothyroidism Nausea Obesity Right upper quadrant pain Surgical History Surgical History H/O gynecological procedure 09/24/23 Mirena IUD removal mirena iud insertion 11/2016 History of laparoscopic cholecystectomy 12/27/22 PDC Family History Family History Grandparent History of skin cancer Maternal Grandmother Hypertension Paternal Grandfather Social History Social History Smoking status: Never smoker Alcohol intake: current Alcohol use details: RARE Substance use: current Substance use type: marijuana Other substance usage details: sometimes Do You Feel Safe in your Home?: Yes Lack of Transportation: No Lack of Food: Never True Current Housing: I Have Housing Concerned About Future Housing: No Difficulty Paying Gas/Electric Bills: No Difficulty Paying for Meds: No Currently Unemployed: No Education: Bachelor's Degree Difficulty w/ Childcare or Family Care: No Living arrangements: with family Additional living arrangements comments: [place] 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 EYES: conjunctivae clear ENT: Mucous membranes moist. left TM pearly bustamante with normal light reflex; right TM erythematous, bulging and intact; canal not erythematous, no drainage no tragal tenderness. Oropharynx mildly erythematous without lesions. Tonsils enlarged 1+ and without exudate. No drooling, no hoarseness, no trismus, uvula midline. No tripod positioning, hot potato voice, or soft palate swelling. NECK: Supple. No lymphadenopathy CHEST: Clear to auscultation, breath sounds equal. No respiratory distress, speaks in full sentences. HEART: Regular rate and rhythm. No murmur heard. SKIN: Warm, dry, no rash. NEURO: Alert and oriented x3. Course Course Emergency Course: Patient is aware of diagnosis, understands and agrees to treatment plan. Anticipatory guidance given. Patient agrees to follow-up as directed and is aware of reasons to seek care at the emergency department. Portions of this record may have been created with voice recognition software Level of Care: Express Care Visit Vital Signs Vital signs: Vital Signs Temperature 98.0 F 12/24/23 15:24 Pulse Rate 92 12/24/23 15:24 Respiratory Rate 16 12/24/23 15:24 Blood Pressure 113/88 12/24/23 15:24 Pulse Oximetry 100 12/24/23 15:24 Oxygen Delivery Room Air 12/24/23 15:24 Temperature 98.0 F 12/24/23 15:24 Pulse Rate 92 12/24/23 15:24 Respiratory Rate 16 12/24/23 15:24 Blood Pressure 113/88 12/24/23 15:24 Pulse Oximetry 100 12/24/23 15:24 Oxygen Delivery Room Air 12/24/23 15:24 MDM - URI/Sore Throat MDM Narrative Medical decision making narrative: discussed physical exam findings, reviewed prescriptions, Advise supportive treatments. Patient is appropriate for outpatient treatment and follow-up. Differential Diagnosis Differential diagnosis: Likely upper respiratory infection, otitis media, sinusitis, viral infection, bronchitis and pharyngitis Discharge Plan Discharge Clinical Impression: Otitis media Patient Disposition: Home, Self-Care Condition: Stable Instructions: Antibiotic Form, Ear Infection (ED) Additional Instructions: Take antibiotics as directed. Recommend antihistamine such as Benadryl, Zyrtec or Lula for sinus congestion Flonase nasal spray, 1 spray in each nostril once daily until symptoms improve Symptomatic treatment includes: rest, fluids, and increase humidity of the air at home. Tylenol 1000mg every 8 hours as needed to reduce fever, pain Please schedule a follow-up visit with your personal physician for further evaluation and treatment within 3-5days. If your symptoms persist, change or worsen significantly, go to the emergency department for further evaluation. Prescriptions: New amoxicillin-pot clavulanate 875-125 mg tablet 1 tablet PO Q12H 7 Days Qty: 14 0RF No Action escitalopram oxalate 10 mg tablet 10 mg PO DAILY Qty: 90 2RF Xifaxan 550 mg tablet 550 mg PO TID 14 Days Qty: 42 2RF Follow-up/Referrals: PHYSICIAN,ANTIQUE FURNITURE REPAIRER [Primary Care Provider] -
== END 2023-12-24 15:56 | disposition home or self-care (01) ==
PROVIDERS: Emergency Provider Nurse Practitioner Family
DX: H66.91 Otitis media, unspecified, right ear (principal); K21.9 Gastro-esophageal reflux disease without esophagitis; E03.9 Hypothyroidism, unspecified; E66.9 Obesity, unspecified; Z68.32 Body mass index [BMI] 32.0-32.9, adult; F12.90 Cannabis use, unspecified, uncomplicated; F41.1 Generalized anxiety disorder
CPT/HCPCS: 99213; G0463

== ENCOUNTER 2024-03-11 15:11 | Outpatient (CLI) | payer BC, OTHER, SELFPAY ==
--- NOTE | ~2024-03-11 | US_ITS ---
EXAMINATION: US OB <=14 wk fetus w TV DATE: 03/11/2024 15:38 INDICATION: Encounter for supervision of normal during first trimester TECHNIQUE: Real-time pelvic ultrasound utilizing both a transvaginal and transabdominal probe was pe rformed. The interpreting radiologist was not present for the study. COMPARISON: None. FINDINGS: The uterus measures 10.0 x 4.5 x 4.7 cm. There is an intrauterine gestational sac. A yolk sac and fe mango pole are identified. The crown rump length measures 1.1 cm, which correlates with an estimated ge stational age of 7 weeks and 1 days. heart motion is identified measuring 149 beats per minute (bpm) by M-mode Doppler. The right ovary measures 3.0 x 3.0 x 2.7 cm. Vascular flow on color Doppler within the right ovary at the periphery of a 1.8 anechoic corpus luteum cyst. The left ovary is not visualized. There is no fr ee fluid in the pelvis. IMPRESSION: 1. Single living fetus with heart rate of 149 bpm. 2. Gestational age by ultrasound of 7 weeks 1 day(s) +/- 5 day(s) with ultrasound estimated date of delivery ([facility]) of 11/06/2024. Reviewed, dictated and finalized at location A. ING STAFF DEVELOPMENT COORDINATOR IMPRESSION: 1. Single living fetus with heart rate of 149 bpm. 2. Gestational age by ultrasound of 7 weeks 1 day(s) +/- 5 day(s) with ultraso und estimated date of delivery ([facility]) of 11/06/2024.
== END 2024-03-11 15:12 | disposition home or self-care (01) ==
LOC: GOSHIMG 15:12
PROVIDERS: PCP Obstetrics & Gynecology; Visit Provider Obstetrics & Gynecology
DX: Z34.90 Encounter for supervision of normal pregnancy, unspecified, unspecified trimester (principal)
CPT/HCPCS: 76801; 76817

== ENCOUNTER 2024-03-17 12:55 | Outpatient (CLI) | payer BC, OTHER, SELFPAY ==
[2024-03-17 19:40] LABS: Basophils Percent Auto 0.4 % (0.2-1.2); Eosinophils Absolute Auto 0.2 K/mm3 (0-0.3); Eosinophils Percent Auto 1.8 % (0-4.4); Hematocrit 41.5 % (37.0-47.0); Hemoglobin 13.7 g/dL (12.0-15.0); Immature Granulocyte Absolute 0.04 K/mm3 (0.00-0.031); Immature Granulocyte Percent A 0.4 % (0-0.5); Lymphocytes Absolute Auto 2.09 K/mm3 (0.9-3.2); Lymphocytes Percent Auto 19.8 % (18.3-44.2); Mean Corpuscular Hemoglobin 29.6 pg (26-34); Mean Corpuscular Volume 89.6 fl (80-100); Mean Platelet Volume 10.4 fl (7.4-10.4); Monocytes Absolute Auto 0.8 K/mm3 (0.1-0.6); Monocytes Percent Auto 7.5 % (2.6-8.5); Neutrophils Absolute Auto 7.4 K/mm3 (1.3-6.7); Neutrophils Percent Auto 70.1 % (45.5-73.1); Platelet Count Result 342 k/mm3 (150-375); Red Blood Count 4.63 M/mm3 (4.2-5.4); Red Cell Distribution Width 12.7 % (11.5-14.5); White Blood Count 10.6 K/mm3 (4.5-10.0)
[2024-03-17 19:56] LABS: Rapid Plasma Reagin Non-Reactive (NonReactive)
[2024-03-17 20:13] LABS: Glucose 1 Hour PP 50gm Dose 96 mg/dL
[2024-03-17 20:52] LABS: HIV 1/2 Ab P24 Ag Result Negative (Negative)
[2024-03-17 21:41] LABS: Hepatitis B Surface Antigen Negative (Negative); Rubella IgG Antibody 30.3 IU/ML
[2024-03-18 17:08] LABS: CMV IgG Antibody >10.00 U/mL; Varicella IgG Antibody 3.35 S/CO
== END 2024-03-17 12:56 | disposition home or self-care (01) ==
PROVIDERS: PCP Obstetrics & Gynecology; Visit Provider Obstetrics & Gynecology
DX: N91.2 Amenorrhea, unspecified (principal); E66.811 Obesity, class 1; E66.09 Other obesity due to excess calories; Z68.33 Body mass index [BMI] 33.0-33.9, adult
CPT/HCPCS: 36415; 82947; 84702; 85025; 86592; 86644; 86703; 86747; 86762; 86787; 86850; 86900; 86901; 87086; 87340; G0432

== ENCOUNTER 2024-05-26 08:12 | Outpatient (CLI) | payer BC, OTHER, SELFPAY ==
[2024-05-26 15:57] LABS: Iron 103 ug/dL (37-170)
[2024-05-26 16:10] LABS: Creatinine Urine 24.3 mg/dL; Total Protein Urine Random 15 mg/dL
[2024-05-26 16:50] LABS: Alanine Aminotransferase 32 U/L (6-35); Albumin Level 3.7 g/dL (3.5-5.1); Alkaline Phosphatase 61 U/L (38-126); Anion Gap 10 mmol/L (4-12); Aspartate Amino Transferase 38 U/L (14-36); Bilirubin,Total 0.3 mg/dL (0.2-1.3); Blood Urea Nitrogen 6 mg/dL (7-17); Calcium 8.7 mg/dL (8.4-10.2); Carbon Dioxide 23 mmol/L (22-30); Chloride 103 mmol/L (98-107); Estimated Glomerular Filt Rate > 60; Glucose 91 mg/dL (65-110); Potassium 4.2 mmol/L (3.4-5.0); Sodium 136 mmol/L (137-145)
[2024-05-26 17:01] LABS: Percent Iron Saturation 32 % (20-50)
[2024-05-26 17:12] LABS: Basophils Percent Auto 0.4 % (0.2-1.2); Eosinophils Absolute Auto 0.1 K/mm3 (0-0.3); Eosinophils Percent Auto 1.4 % (0-4.4); Hematocrit 36.4 % (37.0-47.0); Hemoglobin 11.8 g/dL (12.0-15.0); Immature Granulocyte Absolute 0.03 K/mm3 (0.00-0.031); Immature Granulocyte Percent A 0.4 % (0-0.5); Lymphocytes Absolute Auto 1.64 K/mm3 (0.9-3.2); Lymphocytes Percent Auto 21.1 % (18.3-44.2); Mean Corpuscular HGB Conc 32.4 g/dl (32-36); Mean Corpuscular Hemoglobin 30.3 pg (26-34); Mean Corpuscular Volume 93.6 fl (80-100); Mean Platelet Volume 10.7 fl (7.4-10.4); Monocytes Absolute Auto 0.6 K/mm3 (0.1-0.6); Monocytes Percent Auto 7.7 % (2.6-8.5); Neutrophils Absolute Auto 5.4 K/mm3 (1.3-6.7); Platelet Count Result 274 k/mm3 (150-375); Red Blood Count 3.89 M/mm3 (4.2-5.4); Red Cell Distribution Width 13.7 % (11.5-14.5); White Blood Count 7.8 K/mm3 (4.5-10.0)
== END 2024-05-26 08:13 | disposition home or self-care (01) ==
LOC: ANHGOSHLAB 08:13
PROVIDERS: Visit Provider Obstetrics & Gynecology
DX: O16.2 Unspecified maternal hypertension, second trimester (principal); Z3A.00 Weeks of gestation of pregnancy not specified
CPT/HCPCS: 36415; 80053; 81050; 82570; 82728; 83540; 83550; 84156; 84443; 85025

== ENCOUNTER 2024-05-29 08:07 | Outpatient (NON) | payer BC, OTHER, SELFPAY ==
[2024-05-29 18:45] LABS: Total Protein Urine Random 13 mg/dL
[2024-05-29 18:46] LABS: Total Protein Urine 24 Hr 325 mg/24hr (28-141); Total Volume 24 Hour Urine 2500 ml
== END 2024-05-29 08:08 | disposition home or self-care (01) ==
LOC: ANHGOSHLAB 08:12
PROVIDERS: Visit Provider Obstetrics & Gynecology
DX: R80.9 Proteinuria, unspecified (principal)
CPT/HCPCS: 81050; 84156

== ENCOUNTER 2024-06-23 16:56 | Outpatient (CLI) | payer BC, OTHER, SELFPAY ==
--- OUTSIDE RECORDS SUMMARY | 2024-06-23 17:06 | XMS_ITS | Data Portability ---
Author Organization [facility] Address [address] [place] [address] [place] [address] Assessment No assessment recorded. Plan of Treatment Reminders Order Date Submit Date Provider Last Modified By Organization Details Last Modified Time Details Appointments None recorded. Lab culture, urine 2020 021 [facility] (Lab), [address], [place], [address], 22:39:20 urinalysis, complete 2020 021 [facility] (Lab), [address], [place], [address], 22:39:20 Referral None recorded. Procedures None recorded. Surgeries None recorded. Imaging US, pelvis 2020 021 [email or web address] [place], [address], [place], [address], 20:47:25 US, transvagina l 2020 021 [facility], [address], [address], [place], [address], 16:37:41 US, pelvis, complete 2020 021 [email or web address] Not available 11:18:44 Medication Orders None recorded. Patient TargetsNo targets recorded. Patient InstructionsNo instructions recorded. Reason for Referral None Reported. Results Created Date Observation Date Name Description Value Unit Range Abnormal Flag Note LastModifiedBy Organization Detail LastModifiedTime 06/08/1906/07/2020 CT + NG + TV, RNA, unspe cifie d speci men chlamydia trachomatis, PCR Negati ve negati ve Not Available [facility] (Lab) [address], [place], [address], 06/08/2020 16:06:22 06/08/19 21 06/07/2020 CT + NG + TV, RNA, unspe cifie d speci men neisseria gonorrhoeae, PCR Negati ve negati ve Not Available [facility] (Lab) [address], [place], [address], 06/08/2020 16:06:22 06/08/19 21 06/07/2020 CT + NG + TV, RNA, unspe cifie d speci men trichomonas vaginalis ribosomal RNA (rrna) Negati ve negati ve Not Available [facility] (Lab) [address], [place], [address], 06/08/2020 16:06:22 06/08/19 21 06/07/2020 pregn nick test, urine HCG negati ve Not Available [place] [address], [place], [address], 06/07/2020 15:43:10 06/30/1906/29/2020 urina lysis , compl ete color, urine Colorl ess colorl ess, light yellow , yellow , dark yellow , straw Not Available [facility] (Lab) [address], [place], [address], 06/30/2020 22:39:19 06/30/1906/29/2020 urina lysis , compl ete clarity, urine Clear Not Available [facility] (Lab) [address], [place], [address], 06/30/2020 22:39:19 06/30/1906/29/2020 urina lysis , compl ete glucose, urine Negati ve mg/dL negati ve Not Available [facility] (Lab) [address], [place], [address], 06/30/2020 22:39:19 06/30/19 21 06/29/2020 urina lysis , compl ete bilirubin, urine Negati ve mg/dL negati ve Not Available [facility] (Lab) [address], [place], [address], 06/30/2020 22:39:19 06/30/19 21 06/29/2020 urina lysis , compl ete ketones, urine Negati ve mg/dL negati ve Not Available [facility] (Lab) [address], [place], [address], 06/30/2020 22:39:19 06/30/19 21 06/29/2020 urina lysis , compl ete pH, urine 7.0 . 5.0-9. 0 Not Available [facility] (Lab) [address], [place], [address], 06/30/2020 22:39:19 06/30/1906/29/2020 urina lysis , compl ete specific gravity, urine 1.005 . 1.001- 1.035 Not Available [facility] (Lab) [address], [place], [address], 06/30/2020 22:39:19 06/30/1906/29/2020 urina lysis , compl ete blood, urine Small negati ve abnormal Not Available [facility] (Lab) [address], [place], [address], 06/30/2020 22:39:19 06/30/1906/29/2020 urina lysis , compl ete protein, urine Negati ve mg/dL negati ve Not Available [facility] (Lab) [address], [place], [address], 06/30/2020 22:39:19 06/30/19 21 06/29/2020 urina lysis , compl ete urobilinogen , urine <2.0 mg/dL <2.0 Not Available [facility] (Lab) [address], [place], [address], 06/30/2020 22:39:19 06/30/19 21 06/29/2020 urina lysis , compl ete nitrite, urine Negati ve negati ve Not Available [facility] (Lab) [address], [place], [address], 06/30/2020 22:39:19 06/30/19 21 06/29/2020 urina lysis , compl ete leukocyte esterase, urine Negati ve negati ve Not Available [facility] (Lab) [address], [place], [address], 06/30/2020 22:39:19 06/30/19 21 06/29/2020 urina lysis , compl ete WBC, urine None /hpf none, 0-5 Not Available [facility] (Lab) [address], [place], [address], 06/30/2020 22:39:19 06/30/19 21 06/29/2020 urina lysis , compl ete RBC, urine None /hpf none, 0-2 Not Available [facility] (Lab) [address], [place], [address], 06/30/2020 22:39:19 06/30/19 21 06/29/2020 urina lysis , compl ete bacteria, urine None /hpf none Not Available [facility] (Lab) [address] [place], [address], 06/30/2020 22:39:19 06/30/19 21 06/29/2020 urina lysis , compl ete squamous epithelial cells, urine Trace /hpf none abnormal Not Available [facility] (Lab) [address] [place], [address], 06/30/2020 22:39:19 06/30/19 21 06/29/2020 cultu re, urine result report SEE RESULT S BELOW Test: Cultu re: Urine Speci men Sourc e: Urine Voide d Speci men Type: Urine Speci men Date: 2020 4:08 PM Resul t Date: 2020 9:35 PM Resul t Statu s: Final resul t Abnor mal: No Resul ting Lab: [facility] [address] [facility] [place] [address] Tel: CULTU RE ----- ----- ----- --- No growt h in 1 day (dete ction level of 10,00 0 colon ies / ml.) Not Available [facility] (Lab) [address], [place], [address], 06/30/2020 22:39:20 06/15/19 21 06/16/2020 US, pelvi s No observ ation record ed. alva Tinoco [address], [place], [address], 06/16/2020 17:07:47 06/15/19 21 06/16/2020 US, trans vagin al No observ ation record ed. alva Tinoco [address], [place], [address], 06/16/2020 16:37:42 06/15/19 21 US, pelvi s No observ ation record ed. alva Adrian [address], [place], [address], 06/16/2020 14:11:36 Result Notes None recorded. Problems Name Problem SNOMED Code Status Onset Date Resolution Date Notes Provider Name and Address Organization Details Recorded Time Finding of pattern of menstrua l cycle 065818105 Completed 201406/06/2020 Excessiv e and frequent menstrua tion with irregula r cycle;Pr actice ID: 0001 Marija dale, [facility] 17:21:49 Pregnanc y test negative [id number] Completed 201406/06/2020 Encounte r for pregnanc y test, result negative ;Practic e ID: 0001 Marija dale [facility] 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 17:21:56 Insertio n of intraute rine contrace ptive device Completed 201606/06/2020 Encounte r for insertio n of intraute rine contrace ptive device;P ractice ID: 0001 [facility] 17:21:51 Contrace ptive sheath status [id number] Completed 201606/06/2020 Encounte r for routine checking of intraute rine contrace p dev;Prac regina ID: 0001 Marija dale [facility] 17:21:[address] Concept Completed 201606/06/2020 Encntr for routine child health exam w/o abnormal findings ;Recorde d Elsewher e: No Locat ion: [facility] S ource: [employer] divya: N Practi ce ID: 0001 Rodo lable Time: 03:30:00 PM Marija dale [facility] 17:21:[address] Concept Completed 201706/06/2020 Encntr for general adult medical exam w/o abnormal findings ;Recorde d Elsewher e: No [facility]: [employer] divya: N Practi ce ID: 0001 Rodo lable Time: 03:45:00 PM Marija dale [facility] 17:21:53 Family planning surveill ance Completed 201406/06/2020 Contrace ptive method surveill ance;Rec orded Elsewher e: No Locat ion: [facility] S ource: [employer] divya: N Miles ce ID: 0001 Rodo lable Time: 10:00:00 AM Marija dale, [facility] 17:21:48 Body mass index 30+ - obesity 980496662 Completed 201706/06/2020 Body mass index (BMI) 39.0-39. 9, adult;Re corded Elsewher e: No Locat ion: [facility] S ource: [employer] divya: N Miles ce ID: 0001 Rodo lable Time: 03:45:00 PM Marija dale, [facility] 17:21:43 Clinical finding Completed 201606/06/2020 Presence of (intraut erine) contrace ptive device;R ecorded Elsewher e: No [facility]at [facility] N Miles ce ID: 0001 Rodo lable Time: 03:30:00 PM Marija dale [facility] 17:21:45 Problem Notes None recorded. Procedures Surgical History None recorded. Imaging Results Imaging Date Name Status LastModified by Organization Details LastModified Time 06/16/2020 US, pelvis completed alva Tinoco [address], [place], [address], 06/16/2020 17:07:47 06/16/2020 US, transvaginal completed alva [place] [address], [place], [address], 06/16/2020 16:37:42 06/14/2020 US, pelvis completed layran Kaylah [address], [place], [address], 06/16/2020 14:11:36 Procedure Notes None recorded. Medical Equipment None Reported. Allergies Allergen ID Allergen Name Allergen Category Reaction Reaction Severity Criticality Documentation Date Start Date Code Code System Note Provider Name and Address Organization Details Recorded Time 34061 cephalexi n medicatio n Not available Not available Not available 02/05/20202230 RxNorm [facility]es [facility] 1 17:38:18 Medications Name Sig Start Date Stop Date Status Note LastModified by Organization Details LastModified Time Mirena 21 mcg/24 hr (up to 8 years) 52 mg intrauter ine device 2016 active Not Available Not Available Not Avai lable Synthroid 25 mcg tablet take 1 tablet by oral route every day 02/04 completed Prescrib ed Elsewher e: No Locat ion: [facility] [address] odify By: farheen z Encoun kim DateTime : 07/06/19 17 09:25:12 AM Not Available Not Available Not Available NuvaRing 0.12 mg-0.015 mg/24 hr vaginal insert 1 vaginal ring by vaginal route every month leave in place for 3 weeks, remove for 1 week 12/18 completed Prescrib ed Elsewher e: No Locat ion: [facility] [address] odify By: shane avila DateTime : 07/06/19 17 09:25:12 AM Not Available Not Available Not Available Ortho-Cyc patsy (28) 0.25 mg-35 mcg tablet take 1 tablet by oral route every day 01/07 completed Prescrib ed Elsewher e: No Locat ion: [facility] [address] odify By: naif Wood [email or web address] DateTime : 04/27/19 15 03:30:00 PM Not Available Not Available Not Available Vitals Date Recorded Body height Body mass index (BMI) Body weight Systolic blood pressure Diastolic blood pressure Systolic blood pressure Diastolic blood pressure Provider Name and Address Organization Details Last Updated DateTime 1 170.18 cm 31.2 kg/m2 83979.8 8 g 143 mm[Hg] 93 mm[Hg] 136 mm[Hg] 94 mm[Hg] [facility] 1 14:34:47 Date Recorded Body height Body mass index (BMI) Body weight Systolic blood pressure Diastolic blood pressure Systolic blood pressure Diastolic blood pressure Provider Name and Address Organization Details Last Updated DateTime 1 170.18 cm 31.8 kg/m2 67055.2 5 g 146 mm[Hg] 96 mm[Hg] 137 mm[Hg] 92 mm[Hg] [facility] 1 11:44:24 Social History None recorded. Functional Status None recorded. Mental Status None recorded. Family History Relationship Description Onset Age of this Age Resolved Age Notes LastModified by Organization Details LastModified Time Maternal Grandmother Hypercholest erolemia [email or web address] Not available 2020 17:25:27 Paternal Grandfather Hypercholest erolemia Not available 2020 17:25:34 Paternal Grandfather Hypertensive disorder [email or web address] Not available 2020 17:25:46 Maternal Uncle Seizure [email or web address] Not available 17:25:52 Medical History Condition Response Allergies (Food, seasonal, environmental ) N Other N Breast Cancer N Drug/Latex Allergies/Reactions N Blood Transfusion N Dermatologic Disorders N Lung Disease N Defects or Inherited Disease N Breast Problem N Gestational Diabetes N Hematologic disorders N Anesthesia Complications N History of STI N Deep Vein Thrombosis N Polycystic ovary syndrome N Anxiety Disorder N Autoimmune disease N Arthritis N Infertility N Polyps N Acid Reflux (GERD) N History of abnormal pap N Cancer N Stroke N Varicosities N Neurologic/Epilepsy N Endometriosis N High Cholesterol N Headaches N Fibromyalgia N Kidney Disease N Heart Problems N Kidney or Bladder Problems N Thyroid Problems N GI Problems N Eating Disorder N Anemia N Art (IVF or FET) N Psychiatric Illness N Ovarian Cancer N Diabetes N Pulmonary (TB, Asthma) N Hepatitis/Liver Disease N No Past Medical History N Eczema N Urinary Tract Infection N Abuse/Domestic Violence N Asthma N Trauma/Violence N Depression/ depression N Heart Disease N Pre-Eclampsia N Hypertension N Osteoporosis N Thrombophilias N Gynecological History Statement/Question Response Date of LMP 05/21/2020 Sexually Active? Y STIs/STDs N Date of Last Pap Smear Sexual Problems? N Current Control Method IUD LMP Approximate Obstetrics History GPAL:G 0 P 0 0 0 0 Past Encounters Encounter ID Performer Location Encounter Start Date Encounter Closed Date Diagnosis/Indication Diagnosis SNOMED-CT Code Diagnosis ICD10 Code Diagnosis Note [id number] [address],[place] [address] 06/07/2020 14:25:50 06/07/2020 15:38:56 Abnormal uterine bleeding [id number] 9100 N93.9 U/S ordered. Will await results. [id number] Barron Lyman MD [place] [address],[place] [address] 06/14/2020 16:51:30 06/14/2020 17:05:55 Abnormal uterine bleeding [id number] 9100 N93.9 [id number] [facility] [address],[place] [address] 06/29/2020 11:35:16 06/30/2020 16:11:01 Dyspareunia 16425620 N94.10 More discomfort in anterior wall/bladd er area. She did have frequent UTI and kidney infections as a child but nothing as an adult and denies urinary/ki dney pain or problems. I would like for patient to leave a urine for dip with possible culture. Drinks alot of caffeine so we have discussed decreasing caffeine intake. Check urine culture today. Consider urology consult. If pain resolves over the next month no further f/u. If persists she will need additional testing. Pt has verbalized understand ing and will call us to schedule if no resolution . Also will call if any additional abnormal bleeding. Blood in urine [id number] R31.9 Health Concerns Section Related Observation LastModified by Organization Detai ls LastModified Time None Recorded Concern Status LastModified by Organization Details LastModified Time None Recorded Advance Directives Directive None Recorded Payers Encounter Date Sequence Insurance Name Policy Number Policy Gaspar Covered Member ID Gaspar Member ID Guarantor Name 06/07/2020 1 [place] [id number] Abner Cornejo [id number] Pho[employer] Billner 06/14/2020 1 [place] [id number] Abner Cornejo [id number] Phoenyx Derner 06/29/2020 1 [place] [id number] Abner Cornejo [id number] [facility] Notes Date Note Type Note Provider Name and Address Organization Details Recorded Time 06/07/2020 text/html Beer - Abnormal BleedingReported bypatient.Notes:Not due for regular cycle for another week. Random bleeding over the last week. Started 1 day after intercourse. The amount of bleeding is more than her normal cycles (which are light/spotting d/t IUD). Notices red or brown bleeding when she wipes. Never on underwear or in the toilet. Alena dale [facility] 06/07/2020 15:11:32 06/29/2020 text/html Beer - Abnormal BleedingReported bypatient.Notes:Bleedi ng has resolved and u/s was normal. Pt is having discomfort with intercourse. This has been going on for about 1 month. Discomfort with deep penetration. Position change does not help. Alena dale [facility] 08/05/2020 10:28:02 OBGyn Episode No OBEpisode recorded.
[2024-06-23 18:06] LABS: Total Volume 24 Hour Urine 2400 ml
[2024-06-23 18:07] LABS: Add Urine Microscopic? YES; Appearance Urine Clear (Clear); Bacteria Urine None Seen /hpf; Bilirubin Urine Negative (Negative); Blood Urine Negative (Negative); Color Urine Yellow (Yellow); Glucose Urine UA Negative (Negative); Ketones Urine Negative (Negative); Leukocyte Esterase Ur 1+ LEU/UL (Negative); Nitrate Urine Negative (Negative); Non Pathogenic Casts 0-2; Protein Urine Negative (Negative); RBC Urine 0-2 /hpf (0-2); Specific Grav Ur 1.013 (1.001-1.035); Squamous Epithelial Cell Urine Occasional /hpf (Few); Urobilinogen Urine 0.2 mg/dL (<2.0)
[2024-06-23 18:08] LABS: Creatinine Urine 74.3 mg/dL; Total Protein Urine Random 7 mg/dL; Ur Ttl Prot Creatinine Ratio 0.09 mg/mg (0-0.20)
[2024-06-23 18:14] LABS: Total Protein Urine 24 Hr 312 mg/24hr (28-141); Total Protein Urine Random 13 mg/dL
== END 2024-06-23 16:57 | disposition home or self-care (01) ==
LOC: ANHLAB 17:03
PROVIDERS: Visit Provider Obstetrics & Gynecology Maternal & Fetal Medicine
DX: O12.12 Gestational proteinuria, second trimester (principal); Z3A.00 Weeks of gestation of pregnancy not specified
CPT/HCPCS: 81001; 81050; 82570; 84156; 87086

== ENCOUNTER 2024-08-06 10:14 | Outpatient (CLI) | payer OTHER, BC, SELFPAY ==
--- OUTSIDE RECORDS SUMMARY | 2024-08-06 10:58 | XMS_ITS | Clinical Summary ---
Author Organization [facility] Address [address] [place] [address] Care Team Providers Care Vegetable Canner Name Role Phone Unavailable Primary Care Provider Unavailabl e Source Comments [facility],non-owned Affiliates and Associated Physician Practices is amultiple site organization consisting of ambulatory clinics and hospital sitesin [place], [place], [place] and [place]. This disclosure is being madepursuant to the Care Everywhere program and may not contain all information available regarding this patient. Last updated 17.[facility] Allergies Active Allergy Reactions Criticality Noted Date Comments Cefdinir Urticaria Medium 06/08/2024 Medications * This document contains information received from the source organization and may not represent a complete record from that organization. * Be aware that medications may not be up to date on this document. Alwaysverify current medications with the patient. escitalopram (Lexapro) 10 MG tablet Take 1 (one) tablet by mouth once daily Active Vit-DSS-Fe Fum-FA ( vitamin with iron) tablet Take 1 (one) tablet by mouth once daily Active calcium carbonate (Caltrate) 600 MG tablet Take 1 (one) tablet by mouth daily with food Active aspirin (Aspirin) 81 MG chew tablet Take 1 (one) tablet by mouth once daily Active magnesium oxide (Mag-Ox) 400 MG tablet Take 1 (one) tablet by mouth once daily 30 tablet 3 07/15/2024 Active Active Problems Problem Noted Date Diagnosed Date Proteinuria affecting in second trimes ter 07/15/2024 Encounter for follow-up ultrasound of ana shane 07/15/2024 Anxiety disorder affecting , antepartum 07/15/2024 GBS bacteriuria 07/15/2024 Estimated Date of Delivery Comme nts Yes 10/18/2024 Based on last me nstrual period of 01/12/2024 Encounters * This document contains information received from the source organization and may not represent a complete record from that organization. Date Type Department Care Team Description 07/27/2024 Telephone [facility] [address] [place] [address] [phone] Halie Marcus, RN Returned Call (Left message for patient to go to local L&D for evaluation of Pre eclampsia symptoms of floaters. Suggested patient call back to make [employer] appt in the next couple weeks.) 07/27/2024 Telephone [facility] [address] [place] [address] [phone] Halie Marcus, RN Update (Patient called to report symptoms of possible pre eclampsia.) 07/15/2024 1:53 PM CDT - 07/15/2024 11:59 PM CDT Hospital Encounter [facility] [address] [place] [address] [phone] Beto Kraft MD Discharge Disposition: Home or Self Care 07/15/2024 1:53 PM CDT - 07/15/2024 11:59 PM CDT Hospital Encounter [facility] [address] [place] [address] [phone] Beto Kraft MD Discharge Disposition: Home or Self Care 06/30/2024 Telephone [facility] [address] [place] [address] [phone] Halie Marcus, RN Question (Called patient to see if she can come in sooner that 2:30 for appt on 07/15/24. Patient has last day of school and will come directly after but will not be able to come at 1345, maybe closer to 2pm. Patient labs reviewed with her and she will bring blood pressures for review to her appt. ) 06/16/2024 8:47 AM CDT - 06/16/2024 11:59 PM CDT Hospital Encounter [facility] [address] [place] [address] Kaela Tavares MD Discharge Disposition: Home or Self Care 06/16/2024 8:45 AM CDT - 06/16/2024 8:46 AM CDT Hospital Encounter [facility] [address] [place] [address] HeadKaela MD Discharge Disposition: Home or Self Care from Last 3 Months Family History Medical History Relation Name Comments Hypertension Paternal Grandfather Relation Name Status Comments Paternal Grandfather Social History Tobacco Use Types Packs/Day Years Used Date Smoking Tobacco: Never Smokeless Tobacco: Never Tobacco Cessation:Counseling Given: Not Answered Alcohol Use Standard Drinks/Week Comments Not Currently 0 (1 standard drink = 0.6 oz pur e alcohol) Estimated Date of Delivery Comme nts Yes 10/18/2024 Based on last me nstrual period of 01/12/2024 Sex and Gender Information Value Date Recorded Sex Assigned at Not on file Legal Sex Female 5:40 AM 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 [employer]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[employer] Gender Identity Not on file Sexual Orientation Not on file Last Filed Vital Signs Vital Sign Reading Time Taken Comments Blood Pressure 125/78 07/15/2024 2:05 PM CDT Pulse 91 07/15/2024 2:05 PM CDT Temperature - - Respiratory Rate 16 06/16/2024 9:57 AM CDT Oxygen Saturation - - Inhaled Oxygen Concentration - - Weight 98.5 kg (217 lb 3.2 oz) 07/15/2024 2:05 P M CDT Height 162.6 cm (5' 4) 06/16/2024 9:57 AM CDT Body Mass Index 37.28 06/16/2024 9:57 AM CDT Plan of Treatment Upcoming Encounters Date Type Department Care Team (Late st Contact Info) Description 08/12/2024 2:30 PM CDT Appointment [facility] [address] [place] [address] Health Maintenance Due Date Last Done Comments HIV SCREENING 2013 HPV VACCINE (1 - 3-dose series) 2013 CHLAMYDIA/GONORRHEA SCREENING 2014 HEPATITIS C SCREENING 07/14/2016 DTAP/TDAP/TD VACCINES (1 - Tdap) 2017 HEPATITIS B VACCINE (1 of 3 - 19+ 3-dose series) 2017 PAP SMEAR 07/20/2019 COVID-19 VACCINE (1 - 2023-2 5 season) 2023 DEPRESSION SCREENING 02/19/2024 OB-ONE HOUR GLUCOSE 07/12/2024 OB-TDAP CURRENT 2024 OB-RHOGAM INJECTION 07/26/2024 INFLUENZA VACCINE (Season Ended) 2024 ZOSTER VACCINE (1 of 2) 2048 HIB VACCINE Aged Out No longer eligi ble based on patient's age to complete this topic MENINGOCOCCAL (Group B) VACC INE SHARED DECISION-MAKING Aged Out No longer eligibl e based on patient's age to complete this topic MENINGOCOCCAL GROUPS A/C/Y/W VACCINE Aged Out No longer eligible b ased on patient's age to complete this topic PNEUMOCOCCAL VACCINE Aged Out No long er eligible based on patient's age to complete this topic Respiratory Syncytial Virus (RSV) Vaccine Pt: or over 60 yrs (No Doses Required) Completed Procedures Procedure Name Priority Date/Time Associated Diagnosis Comments SONOGRAM - COMPLETE Routine 07/15/2024 2 :30 PM CDT GBS bacteriuria Obesity affecting in third trimester, unspecified obesity type (HCC) Anxiety Preeclampsia, third trimester (HCC) 26 weeks gestation of (HCC) Benign essential hypertension, antepartum (HCC) SONOGRAM - COMPLETE Routine 06/16/2024 8 :42 AM CDT GBS bacteriuria Obesity affecting in third trimester, unspecified obesity type (HCC) Anxiety Preeclampsia, third trimester (HCC) 20 weeks gestation of (HCC) Benign essential hypertension, antepartum (HCC) from Last 3 Months Results * SONOGRAM - COMPLETE (07/15/2024 2:30 PM CDT) Only the most recent of2 resultswithin the time period is included. Linked Results Indication ======== Incomplete anatomy, Pre- obesity class I Proteinuria 05/29/2024: Urine protein = 325 mg/day History ====== OB History 1. Para 0 Maternal Assessment Physical Exam Height 163 cm, 5 ft 4 in. Weight 98 kg, 217 lb. Initial weight 86 kg, 189 lb. BMI 37.25 kg/m . Initial BMI 32.44 kg/m . Weight gain 13 kg, 28 lb Method ====== Transabdominal ultrasound. View: Sufficient ========= Coulter . Number of fetuses: 1 Dating ====== Date Details Gest. age VAMSHI LMP 01/12/2024 26 w + 3 d 10/18/2024 U/S 07/15/2024 based upon AC, BPD, Femur, HC 25 w + 4 d 10/24/2024 Assigned dating based on the LMP, selected on 06/16/2024 26 w + 3 d 10/18/2024 General Evaluation Cardiac activity present. FHR 144 bpm. Presentation: breech Placenta: Placental site: posterior Umbilical cord: Cord vessels: 3 vessel cord - previously documented. Insertion site: normal insertion - previously documented Amniotic fluid: Amount of AF: normal. MVP 5.0 cm Biometry BPD 60.5 mm 24w 4d 3% Hadlock HC 232.6 mm 25w 2d 4% Hadlock AC 211.0 mm 25w 4d 19% Hadlock Femur 50.0 mm 26w 6d 50% Hadlock Humerus 42.8 mm 25w 4d 20% Lorie HC / AC 1.10 -/- Hadlock Weight Calculation: EFW 879 g 23% Hadlock EFW (lb,oz) 1 lb 15 oz EFW by Hadlock ([id number]) appropriate Growth Overview Exam date GA BPD (mm) HC (mm) AC (mm) FL (mm) HL (mm) EFW (g) 06/16/2024 22w 2d 49.2 6% 185.6 3% 180.9 64% 37.8 32% 34.4 29% 494 44% 07/15/2024 26w 3d 60.5 3% 232.6 4% 211 19% 50 50% 42.8 20% 879 23% Anatomy The following structures appear normal: Head / Neck Cranium. Lateral ventricles. Heart / Thorax 4-chamber view. RVOT view. 3-vessel view. Interventricular septum. Right lung. Left lung. Abdomen Stomach. Kidneys. Bladder. Extremities / Skeleton Left hand. The following structures could not be adequately visualized: Heart / Thorax Aortic arch view. Spine Lumbar spine. Sacral spine. The following structures were documented previously: Head / Neck Choroid plexus. Midline falx. Cavum septi pellucidi. Cerebellum. Cisterna magna. Thalami. Face Lips. Profile. Nose. Orbits. Heart / Thorax LVOT view. 9-dqakve-pkjyhqi view. Situs. Bicaval view. Ductal arch view. Great vessels. Diaphragm. Abdomen Cord insertion. Genitals. Spine Cervical spine. Thoracic spine. Extremities / Skeleton Arms. Right hand. Legs. Feet. Spine other: Normal Sagittal Spine; Suboptimal L/S Spine Transverse sex: female. Impression ========= Single, live, intrauterine at 26w 3d The size & amniotic fluid volume are normal No malformations were seen within the limitations of ultrasound Follow-up ======== Follow-up U/S in 4 weeks for growth & attempt to complete anatomy Coding ====== Procedures [id number]: US Preg Uterus Follow Up . [facility] SquaredOut PACS Anatomical Region Laterality Modality Other 07/15/2024 2:30 PM CDT Myra Ellison MD [facility] ORDERABLES Edited Result - Final from Last 3 Months Insurance [facility] Address: [facility] [address] [place] [address] [facility] * Guarantor: KRUPA HELLER Account Type Relation to Patient Date of Phone Billing Address Personal/Family Spouse
--- OUTSIDE RECORDS SUMMARY | 2024-08-06 10:58 | XMS_ITS | Data Portability ---
Author Organization [facility] Nancy Borrero Address [address] [place] [address] Assessment Encounter Date Assessment Date Assessment LastModified by Organization Details LastModified Time 06/29/2024 06/29/2024 Palpitations: Obtain 14 day Holter monitor. In light of 3 bouts of COVID with NYHA class 2 dyspnea, obtain echocardiogram to rule out COVID-19 or peripartum cardiomyopathy. Recent labs with no evidence of thyroid or metabolic abnormalities to account for palpitations. Discussed with patient and mother regarding lifestyle modifications with hydration, modulating intake of potassium/magnesi um, postural precautions, compression stockings. Management of suspected preeclampsia and hypertension in per the expertise of Maternal Medicine. On behalf of the Cardiovascular Services at [facility], we appreciate the opportunity to participate in the care of your patient. Please feel free to reach out to us for any questions regarding your patient's cardiac care. Vargas Rodriguez MD, [facility] Cardiology Not available 06/29/2024 13:40:21 Plan of Treatment Reminders Order Date Submit Date Provider Last Modified By Organization Details Last Modified Time Details Appointments ANY 15 2024 01:00P M Vargas Rodriguez MD Not available Not available Not available Lab None recorded. Referral None recorded. Procedures None recorded. Surgeries None recorded. Imaging electroca rdiogram 2024 025 [email or web address] In-Office Order, Internal Use Only DO Not Attach Compendium DO Not Attach Compendium, Do Not Delete/merge, [id number] 06/29/2024 11:36:27 US, echocardi ogram, transthor acic, complete, w/ color flow 2024 025 [facility], [address], [address], [place], [address], 07/21/2024 08:59:28 Medication Orders None recorded. Patient TargetsNo targets recorded. Patient Instructions Encounter Date Encounter Id Patient Instructions Last Modified By Organization Details Last Modified Time 06/29/2024 [id number] palpitations: care instructions [email or web address] Not available 06/29/2024 11:38:17 Reason for Referral None Reported. Results Created Date Observation Date Name Description Value Unit Range Abnormal Flag Note LastModifiedBy Organization Detail LastModifiedTime 06/30/1906/29/2024 elect rocar diogr am No observ ation record ed. BOWMAN In-Office Order Internal Use Only DO Not Attach Compendium DO Not Attach Compendium, Do Not Delete/merge, [id number] 06/29/2024 14:55:31 06/30/19 25 elect rocar diogr am No observ ation record ed. [email or web address] Not Available 2024 14:55:32 07/21/19 25 darivn r monit or No observ ation record ed. [employer] [address], [place], [address], 07/20/2024 17:39:23 07/22/19 25 07/20/2024 US, echo ardio gram, trans thora cic, compl ete, w/ color flow No observ ation record ed. [facility] Sched[facility] [address], [place], [address], 07/22/2024 22:46:28 Result Notes None recorded. Problems Name Problem SNOMED Code Status Onset Date Resolution Date Notes Provider Name and Address Organization Details Recorded Time Palpitations 98581829 Active 025 Vargas Rodriguez MD Attn: Martínez g,[address] [facility], [place], [address], [facility] 11:36:13 Problem Notes None recorded. Medical Equipment None Reported. Allergies Allergen ID Allergen Name Allergen Category Reaction Reaction Severity Criticality Documentation Date Start Date Code Code System Note Provider Name and Address Organization Details Recorded Time 18960421 cefdinir medicatio n hives Not available Not available 06/29/2024 96896 RxNorm ANURAG Pagan [place] [facility] 11:09:14 Medications Name Sig Start Date Stop Date Status Note LastModified by Organization Details LastModified Time ondansetron HCl 4 mg tablet TAKE 1 TABLET BY MOUTH EVERY 6 HOURS NEEDED FOR NAUSEA OR VOMITING 06/29 completed Not Available Not Available Not Available aspirin 81 mg tablet,miguel angel yed release Take 1 tablet every day by oral route. active Not Available Not Available No t Available metoclopram honey 5 mg tablet TAKE 1 TABLET BY MOUTH DAILY 06/29 completed Not Available Not Available Not Available amoxicillin 875 mg-potassiu m clavulanate 125 mg tablet TAKE 1 TABLET BY MOUTH EVERY 12 HOURS FOR 7 DAYS 06/29 completed Not Available Not Available Not Available escitalopra m 10 mg tablet TAKE 1 TABLET BY MOUTH DAILY active Not Available Not Available No t Available Xifaxan 550 mg tablet TAKE 1 TABLET BY MOUTH THREE TIMES DAILY FOR 14 DAYS 06/29 completed Not Available Not Available Not Available Vitals Date Recorded Body height Body mass index (BMI) Body weight Respiratory rate Heart rate Oxygen saturation Oxygen saturation in Arterial blood by Pulse oximetry Systolic blood pressure Diastolic blood pressure Provider Name and Address Organization Details Last Updated DateTime 162.56 cm 35.7 kg/m2 77579.2 1 g 18 /min 94 /min 99 % 99 % 112 mm[Hg] 72 mm[Hg] Nori Hart LPN [place] [facility] 11:11:30 Social History Question Answer Notes LastModified by Organizat ion Details LastModified Time Tobacco Smoking Status Never Smoker ANURAG Pagan [place] [facility] 06/29/2024 11:10:03 What Is Your Level Of Caffeine Consumption? Occasional Information not available 06/29/2024 What Was The Date Of Your Most Recent Tobacco Screening? 06/29/2024 Information not available 06/29/2024 Sex: Female Functional Status Question Answer Note LastModified by Organizat ion Details LastModified Time Do you use any illicit or recreational drugs? No Information not available 06/29/2024 What is your level of alcohol consumption? None Information not available 06/29/2024 Mental Status None recorded. Family History Nothing Reported. Medical History No medical history recorded. Gynecological HistoryNo gynecological history recorded. Obstetrics History GPAL:G 0 P 0 0 0 0 Past Encounters Encounter ID Performer Location Encounter Start Date Encounter Closed Date Diagnosis/Indication Diagnosis SNOMED-CT Code Diagnosis ICD10 Code Diagnosis Note [id number] Vargas Rodriguez MD [facility] [place] [address] [place] [phone] 06/29/2024 10:47:09 06/30/2024 17:19:06 Palpitations 26240929 R00.2 Z86.16 O14.92 Health Concerns Section Related Observation LastModified by Organization Detai ls LastModified Time None Recorded Concern Status LastModified by Organization Details LastModified Time None Recorded Advance Directives Directive None Recorded Payers Insurance Date Sequence Insurance Name Policy Number Policy Gaspar Covered Member ID Gaspar Member ID Guarantor Name 08/04/2024 1 [facility] (PP[facility] [id number] Phoenyx Elayne Derner [place] [id number] Phoenyx Elayne Derner [place] 08/04/2024 2 [facility] [id number] Phoenyx Gassett [id number] Phoenyx Elayne Derner [place]ett 06/29/2024 2 [facility] Phoenyx Gassett [id number] Phoenyx Elayne Derner Gassett Notes Date Note Type Note Provider Name and Address Organization Details Recorded Time 06/29/2024 text/html I had the pleasu re of seeing this patient as a new consultation for recommendations regarding evaluation and management of cardiac etiology of palpitations. 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 Accompanied to clinic visit by her mother. Currently 24 weeks . Over the last few weeks has been noticing palpitations occurring with increased frequency occurring, 4-5 times a week and for lasting up to 10 minutes. She has been noticing episodes of dyspnea during these palpitations with NYHA class 2 symptoms. She reports 3 bouts of COVID with last bout of COVID being in 2022. She denies any history of chest pain or associated syncope. She reports recent preeclampsia with elevated blood pressure and findings of proteinuria necessitating evaluation with Maternal- Medicine. She denies any family history of CAD, CHF or arrhythmias. Cardiac diagnostics:Twelve lead EKG 06/29/2024 reviewed which shows sinus rhythm, no ST-T changes, normal intervals. Recent labs done by OBGYN were reviewed which show unremarkable CBC, CMP, thyroid studies. Vargas Rodriguez MD Attn: Accounting[address] [place], [address], [place] [facility] 06/29/2024 13:40:37 OBGyn Episode No OBEpisode recorded.
--- OUTSIDE RECORDS SUMMARY | 2024-08-06 10:58 | XMS_ITS | Data Portability ---
Author Organization [facility] Address [address] [place] [address] [place] [address] Assessment No assessment recorded. Plan of Treatment Reminders Order Date Submit Date Provider Last Modified By Organization Details Last Modified Time Details Appointments None recorded. Lab culture, urine 2020 021 [facility] (Lab), [address], [place], [address], 22:39:20 urinalysis, complete 2020 021 [facility] (Lab), [address], [place], [address], 22:39:20 Referral None recorded. Procedures None recorded. Surgeries None recorded. Imaging US, pelvis 2020 021 [email or web address] [place], [address], [place], [address], 20:47:25 US, transvagina l 2020 021 [facility], [address], [address], [place], [address], 16:37:41 US, pelvis, complete 2020 021 [email or web address] [...] PCR Negati ve negati ve Not Available [facility] (Lab) [address], [place], [address], 06/08/2020 16:06:22 06/08/19 21 06/07/2020 CT + NG + TV, RNA, unspe cifie d speci men neisseria gonorrhoeae, PCR Negati ve negati ve Not Available [facility] (Lab) [address], [place], [address], 06/08/2020 16:06:22 06/08/19 21 06/07/2020 CT + NG + TV, RNA, unspe cifie d speci men trichomonas vaginalis ribosomal RNA (rrna) Negati ve negati ve Not Available [facility] (Lab) [address], [place], [address], 06/08/2020 16:06:22 06/08/19 21 06/07/2020 pregn nick test, urine HCG negati ve Not Available [place] [address], [place], [address], 06/07/2020 15:43:10 06/30/1906/29/2020 urina lysis , compl ete color, urine Colorl ess colorl ess, light yellow , yellow , dark yellow , straw Not Available [facility] (Lab) [address], [place], [address], 06/30/2020 22:39:19 06/30/1906/29/2020 urina lysis , compl ete clarity, urine Clear Not Available [facility] (Lab) [address], [place], [address], 06/30/2020 22:39:19 06/30/1906/29/2020 urina lysis , compl ete glucose, urine Negati ve mg/dL negati ve Not Available [facility] (Lab) [address], [place], [address], 06/30/2020 22:39:19 06/30/19 21 06/29/2020 urina lysis , compl ete bilirubin, urine Negati ve mg/dL negati ve Not Available [facility] (Lab) [address], [place], [address], 06/30/2020 22:39:19 06/30/19 21 06/29/2020 urina lysis , compl ete ketones, urine Negati ve mg/dL negati ve Not Available [facility] (Lab) [address], [place], [address], 06/30/2020 22:39:19 06/30/19 21 06/29/2020 urina lysis , compl ete pH, urine 7.0 . 5.0-9. 0 Not Available [facility] (Lab) [address], [place], [address], 06/30/2020 22:39:19 06/30/1906/29/2020 urina lysis , compl ete specific gravity, urine 1.005 . 1.001- 1.035 Not Available [facility] (Lab) [address], [place], [address], 06/30/2020 22:39:19 06/30/1906/29/2020 urina lysis , compl ete blood, urine Small negati ve abnormal Not Available [facility] (Lab) [address], [place], [address], 06/30/2020 22:39:19 06/30/1906/29/2020 urina lysis , compl ete protein, urine Negati ve mg/dL negati ve Not Available [facility] (Lab) [address], [place], [address], 06/30/2020 22:39:19 06/30/19 21 06/29/2020 urina lysis , compl ete urobilinogen , urine <2.0 mg/dL <2.0 Not Available [facility] (Lab) [address], [place], [address], 06/30/2020 22:39:19 06/30/19 21 06/29/2020 urina lysis , compl ete nitrite, urine Negati ve negati ve Not Available [facility] (Lab) [address], [place], [address], 06/30/2020 22:39:19 06/30/19 21 06/29/2020 urina lysis , compl ete leukocyte esterase, urine Negati ve negati ve Not Available [facility] (Lab) [address], [place], [address], 06/30/2020 22:39:19 06/30/19 21 06/29/2020 urina lysis , compl ete WBC, urine None /hpf none, 0-5 Not Available [facility] (Lab) [address], [place], [address], 06/30/2020 22:39:19 06/30/19 21 06/29/2020 urina lysis , compl ete RBC, urine None /hpf none, 0-2 Not Available [facility] (Lab) [address], [place], [address], 06/30/2020 22:39:19 06/30/19 21 06/29/2020 urina lysis , compl ete bacteria, urine None /hpf none Not Available [facility] (Lab) [address] [place], [address], 06/30/2020 22:39:19 06/30/19 21 06/29/2020 urina lysis , compl ete squamous epithelial cells, urine Trace /hpf none abnormal Not Available [facility] (Lab) [address] [place], [address], 06/30/2020 22:39:19 06/30/19 21 06/29/2020 cultu re, urine result report SEE RESULT S BELOW Test: Cultu re: Urine Speci men Sourc e: Urine Voide d Speci men Type: Urine Speci men Date: 2020 4:08 PM Resul t Date: 2020 9:35 PM Resul t Statu s: Final resul t Abnor mal: No Resul ting Lab: [facility] [address] [address] Tel: CULTU RE ----- ----- ----- --- No growt h in 1 day (dete ction level of 10,00 0 colon ies / ml.) Not Available [facility] (Lab) [address], [place], [address], 06/30/2020 22:39:20 06/15/19 21 06/16/2020 US, pelvi s No observ ation record ed. alva Tinoco [address], [place], [address], 06/16/2020 17:07:47 06/15/19 21 06/16/2020 US, trans vagin al No observ ation record ed. alva Tinoco [address], [place], [address], 06/16/2020 16:37:42 06/15/19 21 US, pelvi s No observ ation record ed. alva Adrian [address], [place], [address], 06/16/2020 14:11:36 Result Notes None recorded. Problems Name Problem SNOMED Code Status Onset Date Resolution Date Notes Provider Name and Address Organization Details Recorded Time Finding of pattern of menstrua l cycle 600085267 Completed 201406/06/2020 Excessiv e and frequent menstrua tion with irregula r cycle;Pr actice ID: 0001 Marija dale, [facility] 17:21:49 Pregnanc y test negative 160067046 Completed 201406/06/2020 Encounte r for pregnanc y test, result negative ;Practic e ID: 0001 Marija dale [facility] 17:21:[address] Concept Completed 201506/06/2020 Encntr for care director rn exam (general ) (routine ) w/o abn findings ;Practic e ID: 0001 Marija dale, [facility] 17:21:56 Insertio n of intraute rine contrace ptive device Completed 201606/06/2020 Encounte r for insertio n of intraute rine contrace ptive device;P ractice ID: 0001 [facility] 17:21:51 Contrace ptive sheath status 206819295 Completed 201606/06/2020 Encounte r for routine checking of intraute rine contrace p dev;Prac regina ID: 0001 Marija dale [facility] 17:21:[address] Concept Completed 201606/06/2020 Encntr for routine child health exam w/o abnormal findings ;Recorde d Elsewher e: No Locat ion: [facility] S ource: EHR Dry Cell Battery Assembler divya: N Practi ce ID: 0001 Rodo lable Time: 03:30:00 PM Marija dale [facility] 17:21:[address] Concept Completed 201706/06/2020 Encntr for general adult medical exam w/o abnormal findings ;Recorde d Elsewher e: No [facility]: EHR Dry Cell Battery Assembler divya: N Practi ce ID: 0001 Rodo lable Time: 03:45:00 PM Marija dale [facility] 1 17:21:53 Family planning surveill ance Completed 201406/06/2020 Contrace ptive method surveill ance;Rec orded Elsewher e: No Locat ion: [facility] S ource: EHR Dry Cell Battery Assembler divya: N Practi ce ID: 0001 Rodo lable Time: 10:00:00 AM Marija dale [facility] 1 17:21:48 Body mass index 30+ - obesity 246993815 Completed 201706/06/2020 Body mass index (BMI) 39.0-39. 9, adult;Re corded Elsewher e: No Locat ion: [facility] S ource: EHR Dry Cell Battery Assembler divya: N Deltati ce ID: 0001 Rodo lable Time: 03:45:00 PM Marija dale [facility] 1 17:21:43 Clinical finding Completed 201606/06/2020 Presence of (intraut erine) contrace ptive device;R ecorded Elsewher e: No Locat ion: [facility] S ource: EHR Dry Cell Battery Assembler divya: N Deltati ce ID: 0001 Rodo lable Time: 03:30:00 PM Marija dale [facility] 1 17:21:45 Problem Notes None recorded. Medical Equipment None Reported. Allergies Allergen ID Allergen Name Allergen Category Reaction Reaction Severity Criticality Documentation Date Start Date Code Code System Note Provider Name and Address Organization Details Recorded Time 91781 cephalexi n medicatio n Not available Not available Not available 02/05/20201 RxNorm Marija dale [facility] 1 17:38:18 Medications Name Sig Start Date Stop Date Status Note LastModified by Organization Details LastModified Time Mirena 21 mcg/24 hr (up to 8 years) 52 mg intrauter ine device 2016 active Not Available Not Available Not Avai lable Synthroid 25 mcg tablet take 1 tablet by oral route every day 02/04 completed Prescrib ed Elsewher e: No Locat ion: [facility] ralf [facility] odify By: [email or web address] z Encoun ter DateTime : 07/06/19 17 09:25:12 AM Not Available Not Available Not Available NuvaRing 0.12 mg-0.015 mg/24 hr vaginal insert 1 vaginal ring by vaginal route every month leave in place for 3 weeks, remove for 1 week 12/18 completed Prescrib ed Elsewher e: No Locat ion: [facility] odify By: shane avila DateTime : 07/06/19 17 09:25:12 AM Not Available Not Available Not Available Ortho-Cyc patsy (28) 0.25 mg-35 mcg tablet take 1 tablet by oral route every day 01/07 completed Prescrib ed Elsewher e: No Locat ion: [facility] odify By: naif tz Encou nter DateTime : 04/27/19 15 03:30:00 PM Not Available Not Available Not Available Vitals Date Recorded Body height Body mass index (BMI) Body weight Systolic blood pressure Diastolic blood pressure Systolic blood pressure Diastolic blood pressure Provider Name and Address Organization Details Last Updated DateTime 1 170.18 cm 31.2 kg/m2 18919.8 8 g 143 mm[Hg] 93 mm[Hg] 136 mm[Hg] 94 mm[Hg] [facility] 1 14:34:47 Date Recorded Body height Body mass index (BMI) Body weight Systolic blood pressure Diastolic blood pressure Systolic blood pressure Diastolic blood pressure Provider Name and Address Organization Details Last Updated DateTime 1 170.18 cm 31.8 kg/m2 35193.2 5 g 146 mm[Hg] 96 mm[Hg] 137 mm[Hg] 92 mm[Hg] Marija Raines [facility] 1 11:44:24 Social History None recorded. Functional Status None recorded. Mental Status None recorded. Family History Relationship Description Onset Age of this Age Resolved Age Notes LastModified by Organization Details LastModified Time Maternal Grandmother Hyperchlourdes evangelista Not available 2020 17:25:27 Paternal Grandfather Hypercholest eddieia [email or web address] Not available 2020 17:25:34 Paternal Grandfather Hypertensive disorder Not available 2020 17:25:46 Maternal Uncle Seizure [email or web address] Not available 17:25:52 Medical History Condition Response [...] SNOMED-CT Code Diagnosis ICD10 Code Diagnosis Note 21610 Alena Troy CNM [place] [address] [address] 06/07/2020 14:25:50 06/07/2020 15:38:56 Abnormal uterine bleeding [id number] 9100 N93.9 U/S ordered. Will await results. [id number] Barron Lyman MD [place] [address] [address] 06/14/2020 16:51:30 06/14/2020 17:05:55 Abnormal uterine bleeding [id number] 9100 N93.9 13239 Alena Troy [facility] [address] [address] 06/29/2020 11:35:16 06/30/2020 16:11:01 Dyspareunia 18510276 N94.10 More discomfort in anterior wall/bladd er [...] any additional abnormal bleeding. Blood in urine 03729305 R31.9 Health Concerns Section Related Observation LastModified by Organization Detai ls LastModified Time None Recorded Concern Status LastModified by Organization Details LastModified Time None Recorded Advance Directives Directive None Recorded Payers Insurance Date Sequence Insurance Name Policy Number Policy Gaspar Covered Member ID Gaspar Member ID Guarantor Name 08/06/2020 1 [facility] [id number] Abner Cornejo [id number] Krupa Cornejo Notes Date Note Type Note Provider Name [...] on underwear or in the toilet. Alena Troy [facility] [place] - [facility] 06/07/2020 15:11:32 06/29/2020 text/html Beer - Abnormal BleedingReported bypatient.Notes:Bleedi ng has resolved and u/s was normal. Pt is having discomfort with intercourse. This has been going on for about 1 month. Discomfort with deep penetration. Position change does not help. Alena Troy [facility], [place] - [facility] 08/05/2020 10:28:02 OBGyn Episode No OBEpisode recorded.
[2024-08-06 19:40] LABS: Basophils Absolute Auto 0.1 K/mm3 (0.0-0.1); Basophils Percent Auto 0.4 % (0.2-1.2); Eosinophils Absolute Auto 0.1 K/mm3 (0-0.3); Eosinophils Percent Auto 0.8 % (0-4.4); Hematocrit 37.5 % (37.0-47.0); Hemoglobin 12.3 g/dL (12.0-15.0); Immature Granulocyte Absolute 0.15 K/mm3 (0.00-0.031); Immature Granulocyte Percent A 1.2 % (0-0.5); Immature Platelet Fraction Pct 4.7 % (0.9-11.2); Mean Corpuscular HGB Conc 32.8 g/dl (32-36); Mean Corpuscular Hemoglobin 29.9 pg (26-34); Mean Corpuscular Volume 91.2 fl (80-100); Mean Platelet Volume 11.1 fl (7.4-10.4); Monocytes Absolute Auto 0.8 K/mm3 (0.1-0.6); Monocytes Percent Auto 6.2 % (2.6-8.5); Neutrophils Absolute Auto 9.4 K/mm3 (1.3-6.7); Neutrophils Percent Auto 75.4 % (45.5-73.1); Platelet Count Result 267 k/mm3 (150-375); Red Blood Count 4.11 M/mm3 (4.2-5.4); Red Cell Distribution Width 13.2 % (11.5-14.5); White Blood Count 12.5 K/mm3 (4.5-10.0)
[2024-08-06 19:59] LABS: Alanine Aminotransferase 28 U/L (6-35); Albumin Level 3.4 g/dL (3.5-5.1); Alkaline Phosphatase 81 U/L (38-126); Aspartate Amino Transferase 30 U/L (14-36); Bilirubin,Total 0.2 mg/dL (0.2-1.3); Blood Urea Nitrogen 6 mg/dL (7-17); Calcium 8.9 mg/dL (8.4-10.2); Carbon Dioxide 23 mmol/L (22-30); Chloride 105 mmol/L (98-107); Estimated Glomerular Filt Rate > 60; Glucose 102 mg/dL (65-110); Glucose 1 Hour PP 50gm Dose 103 mg/dL; Potassium 3.7 mmol/L (3.4-5.0); Total Protein 6.4 g/dL (6.3-8.2); Uric Acid 2.9 mg/dL (2.5-7.5)
[2024-08-06 20:16] LABS: Anion Gap 5 mmol/L (4-12); Sodium 133 mmol/L (137-145)
[2024-08-06 20:31] LABS: Iron 74 ug/dL (37-170)
[2024-08-06 20:34] LABS: Platelet Estimate Adequate (Adequate); Schistocytes None Seen
[2024-08-06 20:37] LABS: HIV 1/2 Ab P24 Ag Result Negative (Negative)
[2024-08-06 20:41] LABS: Percent Iron Saturation 19 % (20-50)
[2024-08-06 21:06] LABS: Thyroid Stimulating Hormone Reflex 0.889 uIU/mL (0.465-4.68)
[2024-08-06 22:44] LABS: Syphilis IgG/IgM Antibody Non-Reactive (Nonreactive)
== END 2024-08-06 10:15 | disposition home or self-care (01) ==
LOC: ANHGOSHLAB 10:14
PROVIDERS: PCP Obstetrics & Gynecology; Visit Provider Obstetrics & Gynecology
DX: O16.2 Unspecified maternal hypertension, second trimester (principal); Z3A.00 Weeks of gestation of pregnancy not specified
CPT/HCPCS: 36415; 80053; 82947; 83540; 83550; 84443; 84550; 85025; 85055; 86593; 86703; G0432

== ENCOUNTER 2024-08-14 21:07 | Observation (INO) | payer OTHER, BC, SELFPAY ==
[2024-08-14 21:46] VITALS: BP 128/71; PULSE 91
[2024-08-14 22:00] VITALS: BP 129/69; PULSE 92
[2024-08-14 22:16] VITALS: BP 129/60; PULSE 80
[2024-08-14 22:30] VITALS: BP 121/73; PULSE 87
[2024-08-14 22:46] VITALS: BMI 37.8
--- NOTE | 2024-08-14 22:46 | OBADM ---
This patient, Krupa Madrid, admitted to the OB room OB Post 117 for observation. Patient/family oriented to hospital policies and general routines including ID bracelet, bed and alarms, visiting hours, pain management, procedures, bathroom and other care routines, personal items, smoking policy, room service/diet, and visiting hours. Patient/Family are encouraged to report perceived risks to care and to ask questions if they do not understand what they are told or what they should do.
--- NOTE | 2024-08-17 08:12 | PM.OBTRLD ---
OB - Triage/Final Diagnosis Visit Information Reason for evaluation: threatened labor Comments/Additional reasons for admission: I have assessed the risk for this patient, Krupa Madrid, and determined that she would benefit from observation care.
== END 2024-08-14 22:55 | disposition home or self-care (01) ==
PROVIDERS: Admitting Provider Obstetrics & Gynecology; Visit Provider Obstetrics & Gynecology
DX: O47.03 False labor before 37 completed weeks of gestation, third trimester (principal); Z3A.30 30 weeks gestation of pregnancy
CPT/HCPCS: G0378; G0379

== ENCOUNTER 2024-09-07 13:16 | Outpatient (CLI) | payer OTHER, SELFPAY ==
--- OUTSIDE RECORDS SUMMARY | 2024-09-07 13:20 | XMS_ITS | Clinical Summary ---
Author Organization [facility] Address [address] [address] Care Team Providers Care Marking Stitcher Name Role Phone Unavailable Primary Care Provider Unavailabl e Source Comments [facility],non-owned Affiliates and Associated Physician Practices is amultiple site organization consisting of ambulatory clinics and hospital sitesin [place], [place], [place] and [place]. This disclosure is being madepursuant to the Care Everywhere program and may not contain all information available regarding this patient. Last updated 17.[facility] Allergies Active Allergy Reactions Criticality Noted Date [...] organization. Date Type Department Care Team Description 08/12/2024 2:18 PM CDT - 08/12/2024 11:59 PM CDT Hospital Encounter [facility] [address] [place] [address] Marleny Cruz MD Discharge Disposition: Home or Self Care 07/27/2024 Telephone [facility] [address] [place] [address] Halie Marcus, RN Returned Call (Left message for patient to go to local L&D for evaluation of Pre eclampsia symptoms of floaters. 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 in the next couple weeks.) 07/27/2024 Telephone [facility] [address] [place] [address] Halie Marcus, RN Update (Patient called to report symptoms of possible pre eclampsia.) 07/15/2024 1:53 PM CDT - 07/15/2024 11:59 PM CDT Hospital Encounter [facility] [address] [place] [address] Beto Kraft MD Discharge Disposition: Home or Self Care 07/15/2024 1:53 PM CDT - 07/15/2024 11:59 PM CDT Hospital Encounter [facility] [address] [place] [address] Beto Kraft MD Discharge Disposition: Home or Self Care 06/30/2024 Telephone [facility] [address] [place] [address] Halie Marcus, RN Question (Called patient to [...] - 06/16/2024 11:59 PM CDT Hospital Encounter [facility] [address] [place] [address] Head, Kaela Rodgers MD Discharge Disposition: Home or Self Care 06/16/2024 8:45 AM CDT - 06/16/2024 8:46 AM CDT Hospital Encounter [facility] [address] [place] [address] Head, Kaela Rodgers MD Discharge Disposition: Home or Self Care [...] on file 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 Gender Identity Not on file Sexual Orientation [...] Care Team (Late st Contact Info) Description 09/09/2024 2:30 PM CDT Hospital Encounter [facility] [address] [place] [address] Beto Kraft MD [address] [place] [id number] Health Maintenance Due Date Last Done Comments HIV SCREENING 2013 HPV VACCINE (1 - 3-dose series) 2013 HEPATITIS C SCREENING 07/14/2016 DTAP/TDAP/TD VACCINES (1 - Tdap) 2017 HEPATITIS B VACCINE (1 of 3 - 19+ 3-dose series) 2017 PAP SMEAR 07/20/2019 COVID-19 VACCINE (1 - 2023-2 5 season) 2023 DEPRESSION SCREENING 02/19/2024 OB-ONE HOUR GLUCOSE 07/12/2024 OB-TDAP CURRENT 2024 OB-RHOGAM INJECTION 07/26/2024 OB-GROUP B STREP SCREEN 09/13/2024 INFLUENZA VACCINE (#1) 2024 ZOSTER VACCINE (1 of 2) 2048 [...] Associated Diagnosis Comments SONOGRAM - COMPLETE Routine 08/12/2024 2 :28 PM CDT GBS bacteriuria Obesity affecting in third trimester, unspecified obesity type (HCC) Anxiety Preeclampsia, third trimester (HCC) 22 weeks gestation of (HCC) Benign essential hypertension, antepartum (HCC) SONOGRAM - COMPLETE Routine 07/15/2024 2 :30 PM CDT GBS bacteriuria Obesity affecting in third trimester, unspecified obesity type (HCC) Anxiety Preeclampsia, third trimester (HCC) 26 weeks gestation of (HCC) Benign essential hypertension, antepartum (HCC) SONOGRAM - COMPLETE Routine 06/16/2024 8:42 AM CDT GBS bacteriuria Obesity affecting in third trimester, unspecified obesity type (HCC) Anxiety Preeclampsia, third trimester (HCC) 20 weeks gestation of (HCC) Benign essential hypertension, antepartum (HCC) from Last 3 Months Results * SONOGRAM - COMPLETE (08/12/2024 2:28 PM CDT) Only the most recent of3 resultswithin the time period is included. Linked Results Indication ======== Incomplete anatomy, Pre- obesity class I Proteinuria 05/29/2024: Urine protein = 325 mg/day History ====== OB History 1. Para 0 Maternal Assessment Physical Exam Height 163 cm, 5 ft 4 in. Weight 102 kg, 225 lb. Initial weight 86 kg, 189 lb. BMI 38.62 kg/m . Initial BMI 32.44 kg/m . Weight gain 16 kg, 36 lb Method ====== Transabdominal ultrasound. View: Sufficient ========= Coulter . Number of fetuses: 1 Dating ====== Date Details Gest. age VAMSHI LMP 01/12/2024 30 w + 3 d 10/18/2024 U/S 08/12/2024 based upon AC, BPD, Femur, HC 30 w + 1 d 10/20/2024 Assigned dating based on the LMP, selected on 06/16/2024 30 w + 3 d 10/18/2024 General Evaluation Cardiac activity present. FHR 148 bpm. Presentation: cephalic Placenta: Placental site: posterior Amniotic fluid: Amount of AF: normal. MVP 5.2 cm. JO ANN 16.1 cm. Q1 5.2 cm, Q2 4.1 cm, Q3 2.7 cm, Q4 4.1 cm Biometry BPD 75.1 mm 30w 1d 29% Hadlock HC 274.5 mm 30w 0d 9% Hadlock AC 266.0 mm 30w 5d 54% Hadlock Femur 55.9 mm 29w 3d 13% Hadlock Humerus 49.7 mm 29w 1d 19% Lorie HC / AC 1.03 Weight Calculation: EFW 1,526 g 30% Hadlock EFW (lb,oz) 3 lb 6 oz EFW by Hadlock (XLT-CH-IU-FL) less than expected Growth Overview Exam date GA BPD (mm) HC (mm) AC (mm) FL (mm) HL (mm) EFW (g) 06/16/2024 22w 2d 49.2 6% 185.6 3% 180.9 64% 37.8 32% 34.4 29% 494 44% 07/15/2024 26w 3d 60.5 3% 232.6 4% 211 19% 50 50% 42.8 20% 879 23% 08/12/2024 30w 3d 75.1 29% 274.5 9% 266 54% 55.9 13% 49.7 19% 1526 30% Anatomy The following structures appear normal: Head / Neck Cranium. Heart / Thorax Aortic arch view. Abdomen Stomach. Kidneys. Bladder. Spine Lumbar spine. Sacral spine. The following structures were documented previously: Head / Neck Lateral ventricles. Choroid plexus. Midline falx. Cavum septi pellucidi. Cerebellum. Cisterna magna. Face Lips. Profile. Nose. Nasal bone. Orbits. Heart / Thorax 4-chamber view. RVOT view. LVOT view. 3-vessel view. Situs. Bicaval view. Ductal arch view. Interventricular septum. Great vessels. Right lung. Left lung. Diaphragm. Abdomen Cord insertion. Genitals. Spine Cervical spine. Thoracic spine. Extremities / Skeleton Arms. Hands. Legs. Feet. sex: female. Impression ========= Single, live, intrauterine at 30w 3d The size is consistent with the stated gestational age. The amniotic fluid volume is normal. 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 Coding ====== Procedures 04386: US Preg Uterus [facility] Anatomical Region Laterality Modality Other 08/12/2024 2:28 PM CDT Myra Ellison MD [facility] ORDERABLES Edited Result - Final from Last 3 Months Insurance Member Subscriber Plan / Payer ( fective 2022-Present) Name:SusanneleoSophie donahuemichoacanofernanda M Relation to Subscriber:Self Name:Kathi Madridyx Martha Payer ID:[id number] (NAIC) Type:[employer] Address: [place] [id number] [place] [phone] * Guarantor: SANTANA HELLER Account Type Relation to Patient Date of Phone Billing Address Personal/Family Spouse
[2024-09-07 19:33] LABS: Hematocrit 36.5 % (37.0-47.0); Hemoglobin 12.3 g/dL (12.0-15.0); Immature Granulocyte Percent A 1.1 % (0-0.5); Lymphocytes Absolute Auto 2.14 K/mm3 (0.9-3.2); Mean Corpuscular HGB Conc 33.7 g/dl (32-36); Mean Corpuscular Hemoglobin 30.4 pg (26-34); Mean Corpuscular Volume 90.1 fl (80-100); Nucleated Red Blood Cells Absolute Auto 0.000 K/mm3 (0.0-0.012); Nucleated Red Blood Cells Perc 0.0 % (0.0-0.2); Platelet Count Result 285 k/mm3 (150-375); Red Blood Count 4.05 M/mm3 (4.2-5.4); White Blood Count 13.2 K/mm3 (4.5-10.0)
[2024-09-07 19:41] LABS: Alanine Aminotransferase 31 U/L (6-35); Albumin Level 3.4 g/dL (3.5-5.1); Alkaline Phosphatase 118 U/L (38-126); Anion Gap 8 mmol/L (4-12); Aspartate Amino Transferase 32 U/L (14-36); Bilirubin,Total 0.2 mg/dL (0.2-1.3); Blood Urea Nitrogen 6 mg/dL (7-17); Calcium 9.2 mg/dL (8.4-10.2); Carbon Dioxide 21 mmol/L (22-30); Chloride 105 mmol/L (98-107); Estimated Glomerular Filt Rate > 60; Glucose 130 mg/dL (65-110); Potassium 3.6 mmol/L (3.4-5.0); Sodium 134 mmol/L (137-145); Total Protein 6.6 g/dL (6.3-8.2); Uric Acid 3.5 mg/dL (2.5-7.5)
[2024-09-07 20:42] LABS: Total Protein Urine Random 16 mg/dL
== END 2024-09-07 13:17 | disposition home or self-care (01) ==
LOC: ANHGOSHLAB 13:17
PROVIDERS: Visit Provider Student in an Organized Health Care Education/Training Program
DX: O16.2 Unspecified maternal hypertension, second trimester (principal); Z3A.00 Weeks of gestation of pregnancy not specified
CPT/HCPCS: 36415; 59025; 80053; 81050; 82570; 84156; 84550; 85025

== ENCOUNTER 2024-09-08 14:21 | Observation (INO) | payer OTHER, SELFPAY ==
[2024-09-08] VITALS (10 sets, daily range): BP systolic 99–133; BP diastolic 61–77; PULSE 103–117; RESP 18–20; TEMP 36.9–37.3; BMI 39.5
--- OUTSIDE RECORDS SUMMARY | 2024-09-08 14:29 | XMS_ITS | Data Portability ---
Author Organization [facility] Nancy Borrero Address [address] [place] [address] Assessment Encounter Date Assessment Date Assessment LastModified [...] On behalf of the Cardiovascular Services at [facility], we appreciate the opportunity to participate in the care of your patient. Please feel free to reach out to us for any questions regarding your patient's cardiac care. Vargas Rodriguez MD, FACC [facility] Cardiology [email or web address] Not available 06/29/2024 13:40:21 Plan of Treatment Reminders Order Date Submit Date Provider Last Modified By Organization Details Last Modified Time Details Appointments ANY 15 2024 10:00A M Vargas Rodriguez MD Not available Not available Not available Lab None recorded. Referral None recorded. Procedures None recorded. Surgeries None recorded. Imaging electroca rdiogram 2024 025 [email or web address] In-Office Order, Internal Use Only DO Not Attach Compendium DO Not Attach Compendium, Do Not Delete/merge, [id number] 06/29/2024 11:36:27 US, echocardi ogram, transthor acic, complete, w/ color flow 2024 025 [facility], [address], [address], [place], [address], 07/21/2024 08:59:28 Medication Orders None recorded. Patient TargetsNo targets recorded. Patient Instructions Encounter Date Encounter Id Patient Instructions Last Modified By Organization Details Last Modified Time 06/29/2024 [id number] palpitations: care instructions [email or web address] Not available 06/29/2024 11:38:17 Reason for Referral None Reported. Results Created Date Observation Date Name Description Value Unit Range Abnormal Flag Note LastModifiedBy Organization Detail LastModifiedTime 06/30/1906/29/2024 elect hao diogr am No observ ation record ed. [facility] In-Office Order Internal Use Only DO Not Attach Compendium DO Not Attach Compendium, Do Not Delete/merge, [id number] 06/29/2024 14:55:31 06/30/19 25 elect rocar diogr am No observ ation record ed. [email or web address] Not Available 2024 14:55:32 07/21/19 25 darvin r monit or No observ ation record ed. [employer] [address], [place], [address], 07/20/2024 17:39:23 07/22/19 25 07/20/2024 US, echoc ardio gram, trans thora cic, compl ete, w/ color flow No observ ation record ed. [facility] [address], [place], [address], 07/22/2024 22:46:28 Result Notes None recorded. Problems Name Problem SNOMED Code Status Onset Date Resolution Date Notes Provider Name and Address Organization Details Recorded Time Palpitations 92068602 Active 025 Vargas Rodriguez MD Attn: Martínez g,[address] [facility], [place], [address], [facility] 11:36:13 Problem Notes None recorded. Medical Equipment None Reported. Allergies Allergen ID Allergen Name Allergen Category Reaction Reaction Severity Criticality Documentation Date Start Date Code Code System Note Provider Name and Address Organization Details Recorded Time 900456 cefdinir medicatio n hives Not available Not available 06/29/2024 42561 RxNorm ANURAG Pagan [place] - [facility] 5 11:09:14 Medications Name Sig Start Date Stop [...] in Arterial blood by Pulse oximetry Systolic And Diastolic Provider Name and Address Organization Details Last Updated DateTime 5 162.56 cm 35.7 kg/m2 42694.2 1 g 18 /min 94 /min 99 % 99 % 112/72 mm[Hg] Nori Hart LPN [place] - [facility] 5 11:11:30 Date Recorded Body height Body mass index (BMI) Body weight Heart rate Oxygen saturation Oxygen saturation in Arterial blood by Pulse oximetry Systolic And Diastolic Provider Name and Address Organization Details Last Updated DateTime 5 162.56 cm 37.9 kg/m2 260991. 91 g 85 /min 99 % 99 % 118/70 mm[Hg] Tawny Peace RN [place] [facility] 5 14:01:42 Social History Question Answer Notes LastModified by Organizat ion Details LastModified Time Tobacco Smoking Status Never Smoker Nori Goodll, CHILD PROTECTIVE INVESTIGATOR null, [place] [facility] 06/29/2024 11:10:03 What Is Your Level Of Caffeine Consumption? Occasional Information not available 06/29/2024 What Was The Date Of Your Most Recent Tobacco Screening? 08/07/2024 Information not available 08/07/2024 Sex: Female Functional Status Question Answer Note LastModified by Organizat ion Details LastModified Time Do you use any illicit or recreational drugs? No Information not available 06/29/2024 Do you or have you ever used any other forms of tobacco or nicotine? No Information not available 08/07/2024 What is your level of alcohol consumption? None Information not available 06/29/2024 Mental Status None recorded. Family History Nothing Reported. Medical History No medical history recorded. Gynecological HistoryNo gynecological history recorded. Obstetrics History GPAL:G 0 P 0 0 0 0 Past Encounters Encounter ID Performer Location Encounter Start Date Encounter Closed Date Diagnosis/Indication Diagnosis SNOMED-CT Code Diagnosis ICD10 Code Diagnosis Note [id number] Vargas Rodriguez MD [facility] [address] [place] [address] 06/29/2024 10:47:09 06/30/2024 17:19:06 Palpitations 63912531 R00.2 Z86.16 O14.92 [id number] Vargas Rodriguez MD [facility] [address] [place] [address] 08/07/2024 13:49:56 08/10/2024 09:54:32 Palpitations 92446372 R00.2 No arrhythmia s on event monitor. No structural heart disease on echocardio gram. Suspect related to volume shifts in . Encouraged self rhythm monitoring , hydration, limiting caffeine. Blood pressure under good control as reported by patient and following closely with Maternal-F etal Medicine for management of suspected preeclamps ia. We will request cardiology evaluation in 6 months. Encouraged to reach out to us in case of any symptoms or concerns in the interim. Health Concerns Section Related Observation LastModified by Organization Rolo gruber LastModified Time None Recorded Concern Status LastModified by Organization Details LastModified Time None Recorded Advance Directives Directive None Recorded Payers Insurance Date Sequence Insurance Name Policy Number Policy Gaspar Covered Member ID Gaspar Member ID Guarantor Name 08/27/2024 2 [facility] (PP[facility]) [id number] [employer] Elayne Cornejo Gassett [id number] [employer] Elayne Cornejo Gassett 08/13/2024 1 [facility] [id number] Phoenyx Gassett [id number] Phoenyx Elayne Derner Gassett 06/29/2024 2 [facility] Phoenyx Gassett [id number] Phoenyx Elayne Derner Gassett Notes Date Note Type Note Provider Name and Address Organization Details Recorded Time 06/29/2024 text/html I had the pleasu re of seeing this patient as a new consultation for recommendations regarding evaluation and management of cardiac etiology of palpitations. 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 Vargas Rodriguez MD Attn: [address] [place], [address], [facility] 06/29/2024 13:40:37 08/07/2024 text/html Patient presents for follow-up of palpitations. Symptoms have improved with a very sporadic palpitations. No chest pain or pressure. No presyncope or syncope. No subjective dyspnea. Blood pressure has improved and is following with Maternal- Medicine. Cardiac diagnostics:Twelve lead EKG 06/29/2024 reviewed which shows sinus rhythm, no ST-T changes, normal intervals. 14 day Holter, 07/20/2024: Average heart rate 90 ( 63-167), 28% of the study spent in tachycardia, PAC and PVC burden less than 1%, 5 symptom triggered events correlated with sinus rhythm with heart rates between 87-107 beats per minute Transthoracic echocardiogram 07/20/2024: LVEF 55-60, normal diastology, no regional wall motion abnormalities, trace TR, normal IVC, no pulmonary hypertension Vargas Rodriguez MD Attn: [address] [place], [address], [facility] 08/07/2024 14:21:57 OBGyn Episode No OBEpisode recorded.
--- OUTSIDE RECORDS SUMMARY | 2024-09-08 14:29 | XMS_ITS | Clinical Summary ---
Author Organization [facility] Address [address] [place] [address] Care Team Providers Care Power Supply Engineer Name Role Phone Unavailable Primary Care Provider Unavailabl e Source Comments [facility],non-owned Affiliates and Associated Physician Practices is amultiple site organization consisting of ambulatory clinics and hospital sitesin [place], [place], [place] and [place]. This disclosure is being madepursuant to the Care Everywhere program and may not contain all information available regarding this patient. Last updated 17.[facility] Allergies Active Allergy Reactions Criticality Noted Date [...] - 08/12/2024 11:59 PM CDT Hospital Encounter [facility] [address] [place] [phone] Marleny Cruz MD Discharge Disposition: Home or Self Care 07/27/2024 Telephone [facility] [address] [place] [phone] Halie Marcus, RN Returned Call (Left message for patient to go to local L&D for evaluation of Pre eclampsia symptoms of floaters. 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 in the next couple weeks.) 07/27/2024 Telephone [facility] [address] [place] [address] Halie Marcus, RN Update (Patient called to report symptoms of possible pre eclampsia.) 07/15/2024 1:53 PM CDT - 07/15/2024 11:59 PM CDT Hospital Encounter [facility] [address] [place] [phone] Beto Kraft MD Discharge Disposition: Home or Self Care 07/15/2024 1:53 PM CDT - 07/15/2024 11:59 PM CDT Hospital Encounter [facility] [address] [place] [phone] Beto Kraft MD Discharge Disposition: Home or Self Care 06/30/2024 Telephone [facility] [address] [place] [phone] Halie Marcus, RN Question (Called patient to [...] - 06/16/2024 11:59 PM CDT Hospital Encounter [facility] [address] [place] [phone] Head, Kaela Rodgers MD Discharge Disposition: Home or Self Care 06/16/2024 8:45 AM CDT - 06/16/2024 8:46 AM CDT Hospital Encounter [facility] [address] [place] [phone] Head, Kaela Rodgers MD Discharge Disposition: Home [...] on file Legal 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 Coding ====== Procedures 23644: US [facility]reg [facility] Region Laterality Modality Other 08/12/2024 2:28 PM CDT Myra Ellison MD [facility] ORDERABLES Edited Result - Final from Last 3 Months Insurance Member Subscriber Plan / Payer ( fective 2022-Present) Name:SusanneleoSophie donahuemichoacanofernanda M Relation to Subscriber:Self Name:Kathi Madridyx Yessi Payer ID:[id number] (NAIC) Type:[employer] Address: [place] [id number] [place] [phone] * Guarantor: SANTANA HELLER Account Type Relation to Patient Date of Phone Billing Address Personal/Family Spouse
--- OUTSIDE RECORDS SUMMARY | 2024-09-08 14:30 | XMS_ITS | Data Portability ---
Author Organization [facility] Address [address] [place] [address] [place] [address] Assessment No assessment recorded. Plan of Treatment Reminders Order Date Submit Date Provider Last Modified By Organization Details Last Modified Time Details Appointments None recorded. Lab culture, urine 2020 021 [facility] (Lab), [address], [place], [address], 22:39:20 urinalysis, complete 2020 021 [facility] (Lab), [address], [place], [address], 22:39:20 Referral None recorded. Procedures None recorded. Surgeries None recorded. Imaging US, pelvis 2020 021 [email or web address], [address], [address], [place], [address], 20:47:25 US, transvagina l 2020 021 [facility], [address], [address], [place], [address], 16:37:41 US, pelvis, complete 2020 021 [email or web address] [...] PCR Negati ve negati ve Not Available [facility] (Lab) [address], [place], [address], 06/08/2020 16:06:22 06/08/19 21 06/07/2020 CT + NG + TV, RNA, unspe cifie d speci men neisseria gonorrhoeae, PCR Negati ve negati ve Not Available [facility] (Lab) [address], [place], [address], 06/08/2020 16:06:22 06/08/19 21 06/07/2020 CT + NG + TV, RNA, unspe cifie d speci men trichomonas vaginalis ribosomal RNA (rrna) Negati ve negati ve Not Available [facility] (Lab) [address], [place], [address], 06/08/2020 16:06:22 06/08/19 21 06/07/2020 pregn nick test, urine HCG negati ve Not Available [facility] [address], [place], [address], 06/07/2020 15:43:10 06/30/1906/29/2020 urina lysis , compl ete color, urine Colorl ess colorl ess, light yellow , yellow , dark yellow , straw Not Available [facility] (Lab) [address], [place], [address], 06/30/2020 22:39:19 06/30/19 21 06/29/2020 urina lysis , compl ete clarity, urine Clear Not Available [facility] (Lab) [address], [place], [address], 06/30/2020 22:39:19 06/30/19 21 06/29/2020 urina lysis , compl ete glucose, urine Negati ve mg/dL negati ve Not Available [facility] (Lab) [address], [place], [address], 06/30/2020 22:39:19 06/30/19 21 06/29/2020 urina lysis , compl ete bilirubin, urine Negati ve mg/dL negati ve Not Available [facility] (Lab) [address], [place], [address], 06/30/2020 22:39:19 06/30/19 21 06/29/2020 urina lysis , compl ete ketones, urine Negati ve mg/dL negati ve Not Available [facility] (Lab) [address], [place], [address], 06/30/2020 22:39:19 06/30/19 21 06/29/2020 urina lysis , compl ete pH, urine 7.0 . 5.0-9. [address] [facility] (Lab) [address], [place], [address], 06/30/2020 22:39:19 06/30/19 21 06/29/2020 urina lysis , compl ete specific gravity, urine 1.005 . 1.001- 1.[address] [facility] (Lab) [address], [place], [address], 06/30/2020 22:39:19 06/30/19 21 06/29/2020 urina lysis , compl ete blood, urine Small negati ve abnormal Not Available [facility] (Lab) [address], [place], [address], 06/30/2020 22:39:19 06/30/19 21 06/29/2020 urina lysis , compl ete protein, urine Negati ve mg/dL negati ve Not Available [facility] (Lab) [address], [place], [address], 06/30/2020 22:39:19 06/30/19 21 06/29/2020 urina lysis , compl ete urobilinogen , urine <2.0 mg/dL <2.0 Not Available [facility] (Lab) [address], [place], [address], 06/30/2020 22:39:19 06/30/19 21 06/29/2020 urina lysis , compl ete nitrite, urine Negati ve negati ve Not Available [facility] (Lab) [address], [place], [address], 06/30/2020 22:39:19 06/30/19 21 06/29/2020 urina lysis , compl ete leukocyte esterase, urine Negati ve negati ve Not Available [facility] (Lab) [address], [place], [address], 06/30/2020 22:39:19 06/30/19 21 06/29/2020 urina lysis , compl ete WBC, urine None /hpf none, 0-[address] [facility] (Lab) [address], [place], [address], 06/30/2020 22:39:19 06/30/19 21 06/29/2020 urina lysis , compl ete RBC, urine None /hpf none, 0-[address] [facility] (Lab) [address], [place], [address], 06/30/2020 22:39:19 06/30/19 21 06/29/2020 urina lysis , compl ete bacteria, urine None /hpf none Not Available [facility] (Lab) [address], [place], [address], 06/30/2020 22:39:19 06/30/19 21 06/29/2020 urina lysis , compl ete squamous epithelial cells, urine Trace /hpf none abnormal Not Available [facility] (Lab) [address], [place], [address], 06/30/2020 22:39:19 06/30/19 21 06/29/2020 cultu re, urine result report SEE RESULT S BELOW Test: Cultu re: Urine Speci men Sourc e: Urine Voide d Speci men Type: Urine Speci men Date: 2020 4:08 PM Resul t Date: 2020 9:35 PM Resul t Statu s: Final resul t Abnor mal: No Resul ting Lab: [facility] [address] [facility] [address] Tel: CULTU RE ----- ----- ----- --- No growt h in 1 day (dete ction level of 10,00 0 colon ies / ml.) Not Available [facility] (Lab) [address], [place], [address], 06/30/2020 22:39:20 06/15/19 21 06/16/2020 US, pelvi s No observ ation record ed. alva [facility] [address], [place], [address], 06/16/2020 17:07:47 06/15/19 21 06/16/2020 US, trans vagin al No observ ation record ed. alva [facility] [address], [place], [address], 06/16/2020 16:37:42 06/15/19 21 US, pelvi s No observ ation record ed. alva [address] [facility], [place], [address], 06/16/2020 14:11:36 Result Notes None recorded. Problems Name Problem SNOMED Code Status Onset Date Resolution Date Notes Provider Name and Address Organization Details Recorded Time Family planning surveill ance Completed 201406/06/2020 Contrace ptive method surveill ance;Rec orded Elsewher e: No Locat ion: [facility] S ource: EHR Community Support Associate divya: N Miles ce ID: [id number] Rodo lable Time: 10:00:00 AM Marija dale [facility] 17:21:48 Finding of pattern of menstrua l cycle 744520520 Completed 201406/06/2020 Excessiv e and frequent menstrua tion with irregula r cycle;Pr actice ID: 0001 Marija dale, [facility] 17:21:49 Pregnanc y test negative [id number] Completed 201406/06/2020 Encounte r for pregnanc y test, result negative ;Practic e ID: 0001 Marija dale [facility] 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:[address] Concept Completed 201606/06/2020 Encntr for routine child health exam w/o abnormal findings ;Recorde d Elsewher e: No Locat ion: [facility] S ource: EHR Community Support Associate divya: N Miles ce ID: 0001 Rodo lable Time: 03:30:00 PM Marija dale [facility] 17:21:55 Insertio n of intraute rine contrace ptive device Completed 201606/06/2020 Encounte r for insertio n of intraute rine contrace ptive device;P ractice ID: 0001 Marija dale [facility] 17:21:51 Clinical finding Completed 201606/06/2020 Presence of (intraut erine) contrace ptive device;R ecorded Elsewher e: No [facility] EHR Community Support Associate divya: N Practi ce ID: 0001 Rodo lable Time: 03:30:00 PM [facility] 17:21:45 Contrace ptive sheath status [id number] Completed 201606/06/2020 Encounte r for routine checking of intraute rine contrace p dev;Prac regina ID: 0001 Marija dale, [facility] 17:21:[address] Concept Completed 201706/06/2020 Encntr for general adult medical exam w/o abnormal findings ;Recorde d Elsewher e: No Locat ion: [facility] S ource: EHR Community Support Associate divya: N Practi ce ID: 0001 Rodo lable Time: 03:45:00 PM [facility] 17:21:53 Body mass index 30+ - obesity 412341805 Completed 201706/06/2020 Body mass index (BMI) 39.0-39. 9, adult;Re corded Elsewher e: No Locat ion: [facility] S ource: EHR Community Support Associate divya: N Practi ce ID: 0001 Rodo lable Time: 03:45:00 PM Marija Raines [facility] 17:21:43 Problem Notes None recorded. Medical Equipment None Reported. Allergies Allergen ID Allergen Name Allergen Category Reaction Reaction Severity Criticality Documentation Date Start Date Code Code System Note Provider Name and Address Organization Details Recorded Time 54720 cephalexi n medicatio n Not available Not available Not available 02/05/20202230 RxNorm Marija dale [facility] 17:38:18 Medications Name Sig Start Date Stop Date Status Note LastModified by Organization Details LastModified Time Mirena 21 mcg/24 hr (up to 8 years) 52 mg intrauter ine device 2016 active Not Available Not Available Not Avai lable Synthroid 25 mcg tablet take 1 tablet by oral route every day 02/04 completed Prescrib ed Elsewher e: No Locat ion: [facility] odify By: [email or web address] z Encoun ter DateTime : 07/06/19 09:25:12 AM Not Available Not Available Not Available NuvaRing 0.12 mg-0.015 mg/24 hr vaginal insert 1 vaginal ring by vaginal route every month leave in place for 3 weeks, remove for 1 week 12/18 completed Prescrib ed Elsewher e: No Locat ion: [facility] odify By: shane avila DateTime : 07/06/19 17 09:25:12 AM Not Available Not Available Not Available Ortho-Cyc patsy (28) 0.25 mg-35 mcg tablet take 1 tablet by oral route every day 01/07 completed Prescrib ed Elsewher e: No Locat ion: [facility] odify By: naif tz Encou nter DateTime : 04/27/19 15 03:30:00 PM Not Available Not Available Not Available Vitals Date Recorded Body height Body mass index (BMI) Body weight Systolic And Diastolic Systolic And Diastolic Provider Name and Address Organization Details Last Updated DateTime 06/07/2020 170.18 cm 31.2 kg/m2 67565.88 g 143/93 mm[Hg] 136/94 mm[Hg] [facility] 1 14:34:47 Date Recorded Body height Body mass index (BMI) Body weight Systolic And Diastolic Systolic And Diastolic Provider Name and Address Organization Details Last Updated DateTime 06/29/2020 170.18 cm 31.8 kg/m2 46717.25 g 146/96 mm[Hg] 137/92 mm[Hg] [facility] 1 11:44:24 Social History None recorded. Functional Status None recorded. Mental Status None recorded. Family History Relationship Description Onset Age of this Age Resolved Age Notes LastModified by Organization Details LastModified Time Maternal Grandmother Hypercholest erolemia Not available 2020 17:25:27 Paternal Grandfather Hypercholest erolemia Not available 2020 17:25:34 Paternal Grandfather Hypertensive disorder Not available 2020 17:25:46 Maternal Uncle Seizure [email or web address] Not available 17:25:52 Medical History Condition Response [...] SNOMED-CT Code Diagnosis ICD10 Code Diagnosis Note [id number] Alena Troy CNM [facility] [address] [address] 06/07/2020 14:25:50 06/07/2020 15:38:56 Abnormal uterine bleeding 2340301401 9100 N93.9 U/S ordered. Will await results. [id number] Barron Lyman MD [facility] [address] [address] 06/14/2020 16:51:30 06/14/2020 17:05:55 Abnormal uterine bleeding 8240451781 9100 N93.9 29920 [facility] [address] [address] 06/29/2020 11:35:16 06/30/2020 16:11:01 Dyspareunia 62217253 N94.10 More discomfort in anterior wall/bladd er [...] any additional abnormal bleeding. Blood in urine [id number] R31.9 Health Concerns Section Related Observation LastModified by Organization Detai ls LastModified Time None Recorded Concern Status LastModified by Organization Details LastModified Time None Recorded Advance Directives Directive None Recorded Payers Insurance Date Sequence Insurance Name Policy Number Policy Gaspar Covered Member ID Gaspar Member ID Guarantor Name 08/06/2020 1 [facility] [id number] Abner Cornejo [id number] Krupa Cornejo Notes Date Note Type Note [...] underwear or in the toilet. Alena dale [place] - [facility] 06/07/2020 15:11:32 06/29/2020 text/html Beer - Abnormal BleedingReported bypatient.Notes:Bleedi ng has resolved and u/s was normal. Pt is having discomfort with intercourse. This has been going on for about 1 month. Discomfort with deep penetration. Position change does not help. Alena Troy [facility], [place] - [facility] 08/05/2020 10:28:02 OBGyn Episode No OBEpisode recorded.
--- NOTE | 2024-09-08 15:00 | OBADM ---
This patient, Krupa Madrid, admitted to the OB room OB Post 116 for observation. Patient/family oriented to hospital policies and general routines including ID bracelet, bed and alarms, visiting hours, pain management, procedures, bathroom and other care routines, personal items, smoking policy, room service/diet, and visiting hours. Patient/Family are encouraged to report perceived risks to care and to ask questions if they do not understand what they are told or what they should do.
[2024-09-08] MEDS: DEXTROSE 5%/LACTATED RINGERS 1,000 ML 999 ML IV CONT (15:25)
[2024-09-08] MEDS: ONDANSETRON INJ 4 MG/2 ML VIAL IV PUSH (15:27)
[2024-09-08] MEDS: FAMOTIDINE 20 MG/2 ML VIAL IV PUSH (15:29)
[2024-09-08 15:52] LABS: Hematocrit 40.5 % (37.0-47.0); Hemoglobin 13.9 g/dL (12.0-15.0); Immature Granulocyte Percent A 1.0 % (0-0.5); Lymphocytes Absolute Auto 1.11 K/mm3 (0.9-3.2); Mean Corpuscular HGB Conc 34.3 g/dl (32-36); Mean Corpuscular Hemoglobin 30.2 pg (26-34); Mean Corpuscular Volume 88.0 fl (80-100); Nucleated Red Blood Cells Absolute Auto 0.000 K/mm3 (0.0-0.012); Nucleated Red Blood Cells Perc 0.0 % (0.0-0.2); Platelet Count Result 287 k/mm3 (150-375); Red Blood Count 4.60 M/mm3 (4.2-5.4); White Blood Count 18.6 K/mm3 (4.5-10.0)
[2024-09-08 16:09] LABS: Add Urine Microscopic? YES; Appearance Urine Clear (Clear); Glucose Urine UA Negative (Negative); Leukocyte Esterase Ur Trace LEU/UL (Negative); Nitrate Urine Negative (Negative); Non Pathogenic Casts 0-2; Specific Grav Ur 1.024 (1.001-1.035)
[2024-09-08 16:16] LABS: Alanine Aminotransferase 35 U/L (6-35); Albumin Level 3.9 g/dL (3.5-5.1); Alkaline Phosphatase 126 U/L (38-126); Anion Gap 10 mmol/L (4-12); Aspartate Amino Transferase 35 U/L (14-36); Bilirubin,Total 0.5 mg/dL (0.2-1.3); Blood Urea Nitrogen 9 mg/dL (7-17); Calcium 9.0 mg/dL (8.4-10.2); Carbon Dioxide 17 mmol/L (22-30); Chloride 105 mmol/L (98-107); Estimated Glomerular Filt Rate > 60; Glucose 87 mg/dL (65-110); Potassium 4.0 mmol/L (3.4-5.0); Sodium 132 mmol/L (137-145); Total Protein 7.7 g/dL (6.3-8.2)
[2024-09-08] MEDS: SODIUM CHLORIDE 0.9% IV 1,000 ML 500 ML IV CONT (16:52)
--- NOTE | 2024-09-08 18:32 | PM.OBTRLD ---
OB - Triage/Final Diagnosis Visit Information Comments/Additional reasons for admission: I have assessed the risk for this patient, Krupa Madrid, and determined that she would benefit from observation care. Evaluation Laboratory results: Laboratory Tests 09/08/24 15:10 WBC 18.6 H RBC 4.60 Hgb 13.9 Hct 40.5 MCV 88.0 MCH 30.2 MCHC 34.3 RDW 13.3 Plt Count 287 MPV 10.6 H Immature Gran % (Auto) 1.0 H Neut % (Auto) 87.8 H Lymph % (Auto) 6.0 L [place] % (Auto) 4.7 Eos % (Auto) 0.2 Baso % (Auto) 0.3 Lymph # (Auto) 1.11 [place] # (Auto) 0.9 H Eos # (Auto) 0.0 Baso # (Auto) 0.1 Abs Immat Gran (auto) 0.18 H Absolute Neuts (auto) 16.3 H Absolute Nucleated RBC 0.000 Nucleated RBC % 0.0 Sodium 132 L Potassium 4.0 Chloride 105 Carbon Dioxide 17 L Anion Gap 10 BUN 9 Creatinine 0.45 L Estim Creat Clear Calc Not Reportable Estimated GFR > 60 Glucose 87 Calcium 9.0 Total Bilirubin 0.5 AST 35 ALT 35 Alkaline Phosphatase 126 Total Protein 7.7 Albumin 3.9 Urine Color Dark yellow Urine Appearance Clear Urine pH 5.5 Ur Specific [place] 1.024 Urine Protein 1+ H Urine Glucose (UA) Negative Urine Ketones 3+ H Ur Blood (Man) Negative Urine Nitrate Negative Urine Bilirubin Negative Urine Urobilinogen 0.2 Leukocyte Esterase Rfl Trace H Urine RBC 0-2 Urine WBC 6-10 H Ur Squamous Epith Cells Few Urine Bacteria None seen Urine Casts 0-2 Vital signs: Vital Signs - 24 hr 09/08/24 14:45 09/08/24 15:00 09/08/24 15:00 Pulse Rate 117 H 108 H Blood Pressure 123/77 123/71 Oxygen Delivery Room Air 09/08/24 15:30 09/08/24 15:45 09/08/24 16:00 Pulse Rate 103 H 103 H 103 H Blood Pressure 119/70 99/61 L 116/70 Oxygen Delivery 09/08/24 16:15 09/08/24 16:30 09/08/24 16:45 Pulse Rate 103 H 105 H 112 H Blood Pressure 119/62 114/65 128/66 Oxygen Delivery 09/08/24 16:55 Pulse Rate 108 H Blood Pressure 130/71 Oxygen Delivery Final Diagnosis (1) Vomiting and diarrhea: Code(s): R11.10 - Vomiting, unspecified; R19.7 - Diarrhea, unspecified Status: Acute
== END 2024-09-08 19:26 | disposition home or self-care (01) ==
LOC: ANHOBOP 14:26 → ANHOBPP 14:26 → ANHOBOP 15:02 → ANHOBPP 15:02
PROVIDERS: Admitting Provider Obstetrics & Gynecology; Visit Provider Obstetrics & Gynecology
DX: O21.2 Late vomiting of pregnancy (principal); Z3A.34 34 weeks gestation of pregnancy; R19.7 Diarrhea, unspecified; R82.90 Unspecified abnormal findings in urine
CPT/HCPCS: 36415; 80053; 81001; 85025; 87086; 96361; 96374; 96375; G0378; G0379; J2405; J7030; J7121

== ENCOUNTER 2024-09-15 12:47 | Outpatient (CLI) | payer OTHER, SELFPAY ==
--- OUTSIDE RECORDS SUMMARY | 2024-09-15 12:54 | XMS_ITS | Encounter Summary ---
Author Organization [facility] Address [address] [place] [address] Care Team Providers Care Central Office Repairer Supervisor Name Role Phone Unavailable Primary Care Provider Unavailabl e Reason for Referral * (Routine) - Open Specialty Diagnoses / Procedures Referred By Contac t Referred To Contact Diagnoses 35 weeks gestation of (HCC) Obesity affecting in third trimester, unspecified obesity type (HCC) Preeclampsia, third trimester (HCC) Benign essential hypertension, antepartum (HCC) Procedures Biophysical Profile w NST Myra Ellison MD [address] [place] [address] Phone: tel: fax: Referral ID Status Reason Start Date Expiration Date Visits Re quested Visits Authorized [id number] Open 09/09/2024 09/09/2025 4 4 * (Routine) - Open Specialty Diagnoses / Procedures Referred By Contac t Referred To Contact Diagnoses 35 weeks gestation of (HCC) Obesity affecting in third trimester, unspecified obesity type (HCC) Preeclampsia, third trimester (HCC) Benign essential hypertension, antepartum (HCC) Procedures Biophysical Profile w NST Myra Ellison MD [address] [place] [address] Phone: tel: fax: Referral ID Status Reason Start Date Expiration Date Visits Re quested Visits Authorized [id number] Open 09/09/2024 09/09/2025 4 4 Reason for Visit * Reason Comments Ultrasound Non-stress Test * (Routine) - Open Specialty Diagnoses / Procedures Referred By Contziggy t Referred To Contact Diagnoses 35 weeks gestation of (HCC) Obesity affecting in third trimester, unspecified obesity type (HCC) Preeclampsia, third trimester (HCC) Benign essential hypertension, antepartum (HCC) Procedures Biophysical Profile w NST Myra Ellison MD [address] [facility] [address] [place] [address] Phone: tel: fax: Referral ID Status Reason Start Date Expiration Date Visits Re quested Visits Authorized [id number] Open 09/09/2024 09/09/2025 4 4 Encounter Details Date Type Department Care Team (Latest Contact Info) Description 09/14/2024 2:27 PM CDT - 09/14/2024 11:59 PM CDT Hospital Encounter [facility]aternal & Care [address] [place] [address] Chadwick Farrell MD [address] [facility] [address] [place] [address] Discharge Disposition: Home or Self Care Social History Tobacco Use Types Packs/Day Years Used Date Smoking Tobacco: Never Smokeless Tobacco: Never Alcohol Use Standard Drinks/Week Comments Not Currently 0 (1 standard drink = 0.6 oz pur e alcohol) Estimated Date of Delivery Comme nts Yes 10/18/2024 Based on last me nstrual period of 01/12/2024 Sex and Gender Information Value Date Recorded Sex Assigned at Not on file Legal Sex Female 5:40 AM [employer] Gender Identity Not on file Sexual Orientation Not on file documented as of this encounter Last Filed Vital Signs Vital Sign Reading Time Taken Comments Blood Pressure 136/87 09/14/2024 2:59 PM CDT Pulse 90 09/14/2024 2:59 PM CDT Temperature - - Respiratory Rate - - Oxygen Saturation - - Inhaled Oxygen Concentration - - Weight - - Height - - Body Mass Index - - documented in this encounter Medications at Time of Discharge aspirin (Aspirin) 81 MG chew tablet Take 1 (one) tablet by mouth once daily calcium carbonate (Caltrate) 600 MG tablet Take 1 (one) tablet by mouth daily with food escitalopram (Lexapro) 10 MG tablet Take 1 (one) tablet by mouth once daily magnesium oxide (Mag-Ox) 400 MG tablet Take 1 (one) tablet by mouth once daily 30 tablet 3 07/15/2024 Vit-DSS-Fe Fum-FA ( vitamin with iron) tablet Take 1 (one) tablet by mouth once daily documented as of this encounter Progress Notes * Halie Marcus RN - 09/14/2024 3:36 PM CDT Patient here today for NST/BPP performed at GA 35w1. Patient reports positive movement. Denies cramping, vaginal bleeding, and leakage of fluid. Patient has been having constant daily headaches that are just there no worse or better per patient. She has mild edema in feet, ankles and hands and denies RUQ pain or visual changes. Patient doing once weekly US and NST with MFM and second weekly NST with OB office. Patient reports she will go for weekly pre eclampsia labs tomorrow at [facility]. Halie Marcus RN 09/14/2024 3:47 PM documented in this encounter Plan of Treatment Upcoming Encounters Date Type Department Care Team (Late st Contact Info) Description 09/21/2024 10:30 AM CDT Appointment [facility] [address] [place] [id number] 09/23/2024 9:00 AM CDT Appointment [facility] [address] [place] [address] 09/28/2024 10:30 AM CDT Appointment [facility] [address] [place] [id number] Scheduled Orders Name Type Priority Associated Diagnoses Orde r Schedule Biophysical Profile w NST MATRNL MED Routine 35 weeks gestation of (HCC) Obesity affecting in third trimester, unspecified obesity type (HCC) Preeclampsia, third trimester (HCC) Benign essential hypertension, antepartum (HCC) 4 Occurrences starting 09/09/2024 until 09/09/2025, 1 completed documented as of this encounter Procedures Procedure Name Priority Date/Time Associated Diagnosis Comments BIOPHYSICAL PROFILE W NST Routine 09/14/2024 3:25 PM CDT 35 weeks gestation of (HCC) Obesity affecting in third trimester, unspecified obesity type (HCC) Preeclampsia, third trimester (HCC) Benign essential hypertension, antepartum (HCC) documented in this encounter Results * Biophysical Profile w NST (09/14/2024 3:25 PM CDT) Linked Results Indication ======== Maternal obesity complicating , class 1 (BMI 30.0 - 34.9) Gestational proteinuria Mild to moderate preeclampsia History ====== OB History 1. Para 0 Maternal Assessment Physical Exam Height 163 cm, 5 ft 4 in. Weight 106 kg, 233 lb. Initial weight 86 kg, 189 lb. BMI 39.99 kg/m . Initial BMI 32.44 kg/m . Weight gain 20 kg, 44 lb Method ====== Transabdominal ultrasound examination. View: Sufficient ========= Coulter . Number of fetuses: 1 Dating ====== Date Details Gest. age VAMSHI LMP 01/12/2024 35 w + 1 d 10/18/2024 Stated VAMSHI 35 w + 1 d 10/18/2024 Assigned dating based on the LMP, selected on 06/16/2024 35 w + 1 d 10/18/2024 General Evaluation Cardiac activity present. FHR 146 bpm. Presentation: cephalic Placenta: Placental site: posterior Amniotic Fluid Assessment ==== Amount of AF: normal MVP 5.5 cm. JO ANN 17.0 cm. Q1 5.5 cm, Q2 3.1 cm, Q3 4.9 cm, Q4 3.5 cm Biophysical Profile 2: breathing movements 2: Gross body movements 2: tone 2: Amniotic fluid volume NST: reactive 10/10 Biophysical profile score Non Stress Test NST interpretation: reactive. Baseline FHR 145 bpm. Baseline variability: moderate. Accelerations: present. Decelerations: absent Growth Overview Exam date GA BPD (mm) HC (mm) AC (mm) FL (mm) HL (mm) EFW (g) 06/16/2024 22w 2d 49.2 6% 185.6 3% 180.9 64% 37.8 32% 34.4 29% 494 44% 07/15/2024 26w 3d 60.5 3% 232.6 4% 211 19% 50 50% 42.8 20% 879 23% 08/12/2024 30w 3d 75.1 29% 274.5 9% 266 54% 55.9 13% 49.7 19% 1526 30% 09/09/2024 34w 3d 83.5 26% 307.4 14% 306.2 59% 63.9 11% 55.5 11% 2329 33% Anatomy The following structures appear normal: Abdomen Stomach. Kidneys. Bladder. sex: female. Impression ========= Single, live, intrauterine at 35w 1d The amniotic fluid volume is normal. The biophysical profile is 10/10. Comment ======== ultrasound alone cannot detect all structural, genetic, or functional , placental, or maternal abnormalities Follow-up ======== Continue weekly BPP with 2x weekly NST Coding ====== Procedures 62597: US Uterus Limited 00411: Biophysical Profile W NST [employer] PACS Anatomical Region Laterality Modality Other 09/14/2024 3:25 PM CDT us Myra Ellison MD [facility] ORDERABLES Edited Result - Final documented in this encounter Visit Diagnoses Diagnosis 35 weeks gestation of (HCC)- Primary state, incidental Obesity affecting in third trimester, unspecified obesity type (HCC) Preeclampsia, third trimester (HCC) Benign essential hypertension, antepartum (HCC) Proteinuria affecting in second trimester (HCC) documented in this encounter
--- OUTSIDE RECORDS SUMMARY | 2024-09-15 12:54 | XMS_ITS | Clinical Summary ---
Author Organization [facility] Address [address] [place] [address] Care Team Providers Care Watch Technician Name Role Phone Unavailable Primary Care Provider Unavailabl e Source Comments [facility] [employer],non-owned Affiliates and Associated Physician Practices is amultiple site organization consisting of ambulatory clinics and hospital sitesin [place], [place], [place] and [place]. This disclosure is being madepursuant to the Care Everywhere program and may not contain all information available regarding this patient. Last updated 17.[facility] Allergies Active Allergy Reactions Criticality Noted Date [...] by mouth once daily 30 tablet 3 Active Additional Information Patient not taking.Reason: Patient adjusted, Informant: Patient, Reported on 09/09/2024 Active Problems Problem Noted Date Diagnosed Date [...] organization. Date Type Department Care Team Description 09/14/2024 2:27 PM CDT - 09/14/2024 11:59 PM CDT Hospital Encounter [facility] [address] [place] [phone] Chadwick Farrell MD Discharge Disposition: Home or Self Care 09/09/2024 2:30 PM CDT - 09/09/2024 11:59 PM CDT Hospital Encounter [facility] [address] [place] [address] [phone] Beto Kraft MD Discharge Disposition: Home or Self Care 08/12/2024 2:18 PM CDT - 08/12/2024 11:59 PM CDT Hospital Encounter [facility] [address] [place] [phone] Marleny Cruz MD Discharge Disposition: Home or Self Care 07/27/2024 Telephone [facility] [address] [place] [address] [phone] Halie Marcus, RN Returned Call (Left message for patient to go to local L&D for evaluation of Pre eclampsia symptoms of floaters. 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 couple weeks.) 07/27/2024 Telephone [facility] [address] [place] [address] [phone] Halie Marcus, RN Update (Patient called to report symptoms of possible pre eclampsia.) 07/15/2024 1:53 PM CDT - 07/15/2024 11:59 PM CDT Hospital Encounter [facility] [address] [place] [address] [phone] Beto Kraft MD Discharge Disposition: Home or Self Care 07/15/2024 1:53 PM CDT - 07/15/2024 11:59 PM CDT Hospital Encounter [facility] [address] [place] [address] [phone] Beto Kraft MD Discharge Disposition: Home or Self Care 06/30/2024 Telephone [facility] [address] [place] [address] [phone] Halie Marcus RN Question (Called patient to see if [...] 06/16/2024 11:59 PM CDT Hospital Encounter [facility] [address] [place] [address] [phone] HeadKaela MD Discharge Disposition: Home or Self Care 06/16/2024 8:45 AM CDT - 06/16/2024 8:46 AM CDT Hospital Encounter [facility] [address] [place] [address] [phone] Kaela Tavares MD Discharge Disposition: Home or [...] on file 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 Gender Identity Not on file Sexual Orientation Not on file Last Filed Vital Signs Vital Sign Reading Time Taken Comments Blood Pressure 136/87 09/14/2024 2:59 PM CDT Pulse 90 09/14/2024 2:59 PM CDT Temperature - - Respiratory Rate 16 06/16/2024 9:57 AM CDT Oxygen Saturation - - Inhaled Oxygen Concentration - - Weight 104.1 kg (229 lb 8 oz) 09/09/2024 2:47 PM CDT Height 162.6 cm (5' 4) 06/16/2024 9:57 AM CDT Body Mass Index 39.39 06/16/2024 9:57 AM CDT Plan of Treatment Upcoming Encounters Date Type Department Care Team (Late st Contact Info) Description 09/21/2024 10:30 AM CDT Appointment [facility] [address] [place] [phone] 09/23/2024 9:00 AM CDT Appointment [facility] [address] [place] [phone] 09/28/2024 10:30 AM CDT Appointment [facility] [address] [place] [address] [phone] Health Maintenance Due Date Last Done Comments HIV SCREENING 2013 HPV VACCINE (1 - 3-dose series) 2013 HEPATITIS C SCREENING 07/14/2016 DTAP/TDAP/TD VACCINES (1 - Tdap) 2017 HEPATITIS B VACCINE (1 of 3 - 19+ 3-dose series) 2017 PAP SMEAR 07/20/2019 COVID-19 VACCINE ( - 2023-2 5 season) 2023 DEPRESSION SCREENING [...] trimester (HCC) Benign essential hypertension, antepartum (HCC) SONOGRAM - COMPLETE Routine 09/09/2024 3 :30 PM CDT 34 weeks gestation of (HCC) Encounter for ultrasound to assess growth (HCC) Obesity affecting in third trimester, unspecified obesity type (HCC) Preeclampsia, third trimester (HCC) Benign essential hypertension, antepartum (HCC) Encounter for follow-up ultrasound of anatomy (HCC) SONOGRAM - COMPLETE Routine 08/12/2024 2 :28 [...] (HCC) from Last 3 Months Results * Biophysical Profile w NST (09/14/2024 [...] with 2x weekly NST Coding ====== Procedures 63267: US Uterus Limited 20380: Biophysical Profile W NST [facility] PACS Anatomical Region Laterality Modality Other 09/14/2024 3:25 PM CDT Myra Ellison MD [facility] ORDERABLES Edited Result - Final * Sonogram - Complete (09/09/2024 3:30 PM CDT) Only the most recent of4 resultswithin the time period is included. Linked Results Indication ======== Maternal obesity complicating , class 1 (BMI 30.0 - 34.9) Gestational proteinuria Proteinuria 05/29/2024: Urine protein = 325 mg/day Mild to moderate preeclampsia new diagnosis as of Saturday09/07/24 History ====== OB History 1. Para 0 Maternal Assessment Physical Exam Height 163 cm, 5 ft 4 in. Weight 104 kg, 229 lb. Initial weight 86 kg, 189 lb. BMI 39.31 kg/m . Initial BMI 32.44 kg/m . Weight gain 18 kg, 40 lb Method ====== Transabdominal ultrasound examination. View: Sufficient ========= Coulter . Number of fetuses: 1 Dating ====== Date Details Gest. age VAMSHI LMP 01/12/2024 34 w + 3 d 10/18/2024 Stated VAMSHI 34 w + 3 d 10/18/2024 Assigned dating based on the LMP, selected on 06/16/2024 34 w + 3 d 10/18/2024 General Evaluation Cardiac activity present. FHR 154 bpm. Presentation: cephalic Placenta: Placental site: posterior Amniotic Fluid Assessment ==== Amount of AF: normal MVP 4.4 cm. JO ANN 15.8 cm. Q1 4.0 cm, Q2 4.2 cm, Q3 4.4 cm, Q4 3.2 cm Biophysical Profile 2: breathing movements 2: Gross body movements 2: tone 2: Amniotic fluid volume NST: reactive 10/10 Biophysical profile score Non Stress Test NST interpretation: reactive. Baseline FHR 140 bpm. Baseline variability: moderate. Accelerations: present Biometry BPD 83.5 mm 33w 4d 26% Hadlock HC 307.4 mm 34w 2d 14% Hadlock AC 306.2 mm 34w 4d 59% Hadlock Femur 63.9 mm 33w 0d 11% Hadlock Humerus 55.5 mm 32w 2d 11% Lorie HC / AC 1.00 Weight Calculation: EFW 2,329 g 33% Hadlock EFW (lb,oz) 5 lb 2 oz EFW by Hadlock ([id number]-KL-[id number]) appropriate Growth Overview Exam date GA BPD [...] female. Impression ========= Single, live, intrauterine at 34w 3d The growth is appropriate. The amniotic fluid volume is normal. The biophysical profile is 10/10. Comment ======== U/S cannot detect all structural, genetic, or functional , placental, or maternal abnormalities Follow-up ======== Continue 2x-weekly NST + 1x-weekly BPP pending delivery Coding ====== Procedures 25957: [place] [address]: Biophysical Profile W NST . [facility] [employer] PACS Anatomical Region Laterality Modality Other 09/09/2024 3:30 PM CDT Myra Ellison MD [facility] ORDERABLES Edited Result - Final from Last 3 Months Insurance [facility] * Guarantor: KRUPA HELLER Account Type Relation to Patient Date of Phone Billing Address Personal/Family Spouse
--- OUTSIDE RECORDS SUMMARY | 2024-09-15 12:54 | XMS_ITS | Data Portability ---
Author Organization [facility] Nancy Borrero Address [address] [place] [address] Assessment Encounter Date Assessment Date Assessment LastModified [...] of the Cardiovascular Services at [facility], we appreciate the opportunity to participate in the care of your patient. Please feel free to reach out to us for any questions regarding your patient's cardiac care. Vargas Rodriguez MD, FACC [facility] Cardiology [email or web address] Not available 06/29/2024 13:40:21 Plan of Treatment Reminders Order Date Submit Date Provider Last Modified By Organization Details Last Modified Time Details Appointments ANY 15 2024 10:00A M Vargas Rodriguez MD Not available Not available Not available Lab None recorded. Referral None recorded. Procedures None recorded. Surgeries None recorded. Imaging electroca rdiogram 2024 025 [email or web address] In-Office Order, Internal Use Only DO Not Attach Compendium DO Not Attach Compendium, Do Not Delete/merge, [id number] 06/29/2024 11:36:27 US, echocardi ogram, transthor acic, complete, w/ color flow 2024 025 [facility], [address], [address], [place], [address], 07/21/2024 08:59:28 Medication Orders None recorded. Patient TargetsNo targets recorded. Patient Instructions Encounter Date Encounter Id Patient Instructions Last Modified By Organization Details Last Modified Time 06/29/2024 [id number] palpitations: care instructions [email or web address] Not available 06/29/2024 11:38:17 Reason for Referral None Reported. Results Created Date Observation Date Name Description Value Unit Range Abnormal Flag Note LastModifiedBy Organization Detail LastModifiedTime 06/30/1906/29/2024 elect hao diogr am No observ ation record ed. MOZELLE In-Office Order Internal Use Only DO Not Attach Compendium DO Not Attach Compendium, Do Not Delete/merge, [id number] 06/29/2024 14:55:31 06/30/19 25 elect rocar diogr am No observ ation record ed. [email or web address] Not Available 2024 14:55:32 07/21/19 25 darvin r monit or No observ ation record ed. [employer] [address], [place], [address], 07/20/2024 17:39:23 07/22/19 25 07/20/2024 US, echoc ardio gram, trans thora cic, compl ete, w/ color flow No observ ation record ed. [facility] [address], [place], [address], 07/22/2024 22:46:28 Result Notes None recorded. Problems Name Problem SNOMED Code Status Onset Date Resolution Date Notes Provider Name and Address Organization Details Recorded Time Palpitations 38746884 Active 025 Vargas Rodriguez MD Attn: Martínez g,[address] [facility], [place], [address], [facility] 11:36:13 Problem Notes None recorded. Medical Equipment None Reported. Allergies Allergen ID Allergen Name Allergen Category Reaction Reaction Severity Criticality Documentation Date Start Date Code Code System Note Provider Name and Address Organization Details Recorded Time 276410 cefdinir medicatio n hives Not available Not available 06/29/2024 05877 RxNorm ANURAG Pagna [place] - [facility] 5 11:09:14 Medications Name [...] Updated DateTime 5 162.56 cm 35.7 kg/m2 70796.2 1 g 18 /min 94 /min 99 % 99 % 112/72 mm[Hg] Nori Hart LPN [place] - [facility] 5 11:11:30 Date Recorded Body height Body mass index (BMI) Body weight Heart rate Oxygen saturation Oxygen saturation in Arterial blood by Pulse oximetry Systolic And Diastolic Provider Name and Address Organization Details Last Updated DateTime 5 162.56 cm 37.9 kg/m2 526168. 91 g 85 /min 99 % 99 % 118/70 mm[Hg] Tawny Peace RN [place] - [facility] 5 14:01:42 Social History Question Answer Notes LastModified by Organizat ion Details LastModified Time Tobacco Smoking Status Never Smoker Nori Goodll, [employer] null, [place] - [facility] 06/29/2024 11:10:03 What Is Your Level Of [...] SNOMED-CT Code Diagnosis ICD10 Code Diagnosis Note [id number] Vargas Rodriguez MD ON [facility] [employer] [place] [employer] [address] [place] [address] 06/29/2024 10:47:09 06/30/2024 17:19:06 Palpitations 31088280 R00.2 Z86.16 O14.92 [id number] Vargas Rodriguez MD [facility] [employer] [place] [employer] [address] [place] [address] 08/07/2024 13:49:56 08/10/2024 09:54:32 Palpitations 40735907 R00.2 No arrhythmia s on event monitor. [...] Gaspar Member ID Guarantor Name 08/27/2024 2 [facility] [id number] [employer] Elayne Derner [place] [id number] [employer] El[employer] Derner [employer] 08/13/2024 1 [facility] [id number] Phoenyx Gassett [id number] [employer] Elayne Derner [place] 06/29/2024 2 [facility] [employer] G[employer]ett [id number] [employer] Elayne Derner [place] OBGyn Episode No OBEpisode recorded.
--- OUTSIDE RECORDS SUMMARY | 2024-09-15 12:54 | XMS_ITS | Data Portability ---
Author Organization [facility] Address [address] [place] [place] [address] Assessment No assessment recorded. Plan of Treatment Reminders Order Date Submit Date Provider Last Modified By Organization Details Last Modified Time Details Appointments None recorded. Lab culture, urine 2020 021 [facility] (Lab), [address], [place], [address], 22:39:20 urinalysis, complete 2020 021 [facility] (Lab), [address], [place], [address], 22:39:20 Referral None recorded. Procedures None recorded. Surgeries None recorded. Imaging US, pelvis 2020 021 [email or web address], [address], [place], [address], 20:47:25 US, transvagina l 2020 021 [facility], [address], [address], [place], [address], 16:37:41 US, pelvis, complete 2020 021 [email or web address] [...] PCR Negati ve negati ve Not Available [facility] (Lab) [address], [place], [address], 06/08/2020 16:06:22 06/08/19 21 06/07/2020 CT + NG + TV, RNA, unspe cifie d speci men neisseria gonorrhoeae, PCR Negati ve negati ve Not Available [facility] (Lab) [address], [place], [address], 06/08/2020 16:06:22 06/08/19 21 06/07/2020 CT + NG + TV, RNA, unspe cifie d speci men trichomonas vaginalis ribosomal RNA (rrna) Negati ve negati ve Not Available [facility] (Lab) [address], [place], [address], 06/08/2020 16:06:22 06/08/19 21 06/07/2020 pregn nick test, urine HCG negati ve Not Available [facility] [address], [place], [address], 06/07/2020 15:43:10 06/30/1906/29/2020 urina lysis , compl ete color, urine Colorl ess colorl ess, light yellow , yellow , dark yellow , straw Not Available [facility] (Lab) [address], [place], [address], 06/30/2020 22:39:19 06/30/19 21 06/29/2020 urina lysis , compl ete clarity, urine Clear Not Available [facility] (Lab) [address], [place], [address], 06/30/2020 22:39:19 06/30/19 21 06/29/2020 urina lysis , compl ete glucose, urine Negati ve mg/dL negati ve Not Available [facility] (Lab) [address], [place], [address], 06/30/2020 22:39:19 06/30/19 21 06/29/2020 urina lysis , compl ete bilirubin, urine Negati ve mg/dL negati ve Not Available [facility] (Lab) [address], [place], [address], 06/30/2020 22:39:19 06/30/19 21 06/29/2020 urina lysis , compl ete ketones, urine Negati ve mg/dL negati ve Not Available [facility] (Lab) [address], [place], [address], 06/30/2020 22:39:19 06/30/19 21 06/29/2020 urina lysis , compl ete pH, urine 7.0 . 5.0-9. 0 Not Available [facility] (Lab) [address], [place], [address], 06/30/2020 22:39:19 06/30/19 21 06/29/2020 urina lysis , compl ete specific gravity, urine 1.005 . 1.001- 1.035 Not Available [facility] (Lab) [address], [place], [address], 06/30/2020 22:39:19 06/30/19 21 06/29/2020 urina lysis , compl ete blood, urine Small negati ve abnormal Not Available [facility] (Lab) [address], [place], [address], 06/30/2020 22:39:19 06/30/19 21 06/29/2020 urina lysis , compl ete protein, urine Negati ve mg/dL negati ve Not Available [facility] (Lab) [address], [place], [address], 06/30/2020 22:39:19 06/30/19 21 06/29/2020 urina lysis , compl ete urobilinogen , urine <2.0 mg/dL <2.0 Not Available [facility] (Lab) [address], [place], [address], 06/30/2020 22:39:19 06/30/19 21 06/29/2020 urina lysis , compl ete nitrite, urine Negati ve negati ve Not Available [facility] (Lab) [address], [place], [address], 06/30/2020 22:39:19 06/30/19 21 06/29/2020 urina lysis , compl ete leukocyte esterase, urine Negati ve negati ve Not Available [facility] (Lab) [address], [place], [address], 06/30/2020 22:39:19 06/30/19 21 06/29/2020 urina lysis , compl ete WBC, urine None /hpf none, 0-5 Not Available [facility] (Lab) [address], [place], [address], 06/30/2020 22:39:19 06/30/19 21 06/29/2020 urina lysis , compl ete RBC, urine None /hpf none, 0-2 Not Available [facility] (Lab) [address], [place], [address], 06/30/2020 22:39:19 06/30/19 21 06/29/2020 urina lysis , compl ete bacteria, urine None /hpf none Not Available [facility] (Lab) [address], [place], [address], 06/30/2020 22:39:19 06/30/19 21 06/29/2020 urina lysis , compl ete squamous epithelial cells, urine Trace /hpf none abnormal Not Available [facility] (Lab) [address], [place], [address], 06/30/2020 22:39:19 06/30/19 21 06/29/2020 cultu re, urine result report SEE RESULT S BELOW Test: Cultu re: Urine Speci men Sourc e: Urine Voide d Speci men Type: Urine Speci men Date: 2020 4:08 PM Resul t Date: 2020 9:35 PM Resul t Statu s: Final resul t Abnor mal: No Resul ting Lab: [facility] [address] [facility] [address] Tel: CULTU RE ----- ----- ----- --- No growt h in 1 day (dete ction level of 10,00 0 colon ies / ml.) Not Available [facility] (Lab) [address], [place], [address], 06/30/2020 22:39:20 06/15/19 21 06/16/2020 US, pelvi s No observ ation record ed. alva [facility] [address], [place], [address], 06/16/2020 17:07:47 06/15/19 21 06/16/2020 US, trans vagin al No observ ation record ed. alva [facility] [address], [place], [address], 06/16/2020 16:37:42 06/15/19 21 US, pelvi s No observ ation record ed. alva [address], [facility], [place], [address], 06/16/2020 14:11:36 Result Notes None recorded. Problems Name Problem SNOMED Code Status Onset Date Resolution Date Notes Provider Name and Address Organization Details Recorded Time Family planning surveill ance Completed 201406/06/2020 Contrace ptive method surveill ance;Rec orded Elsewher e: No Locat ion: [facility] S ource: EHR Manager Security divya: N Miles ce ID: [id number] Rodo lable Time: 10:00:00 AM Marija dale [facility] 17:21:48 Finding of pattern of menstrua l cycle [id number] Completed 201406/06/2020 Excessiv e and frequent menstrua tion with irregula r cycle;Pr actice ID: 0001 Marija dale, [facility] 17:21:49 Pregnanc y test negative [id number] Completed 201406/06/2020 Encounte r for pregnanc y test, result negative ;Practic e ID: 0001 Marija dale [facility] 17:21:[address] Concept Completed 201506/06/2020 Encntr for db2 developer exam (general ) (routine ) w/o abn findings ;Practic e ID: 0001 [facility]:21:[address] Concept Completed 201606/06/2020 Encntr for routine child health exam w/o abnormal findings ;Recorde d Elsewher e: No Locat ion: [facility] S ource: EHR Manager Security divya: N Miles ce ID: 0001 Rodo lable Time: 03:30:00 PM Marija dale [facility] 17:21:55 Insertio n of intraute rine contrace ptive device Completed 201606/06/2020 Encounte r for insertio n of intraute rine contrace ptive device;P ractice ID: 0001 Marija dale [facility] 17:21:51 Clinical finding Completed 201606/06/2020 Presence of (intraut erine) contrace ptive device;R ecorded Elsewher e: No [facility] S ource: EHR Manager Security divya: N Practi ce ID: 0001 Rodo lable Time: 03:30:00 PM [facility] 17:21:45 Contrace ptive sheath status [id number] Completed 201606/06/2020 Encounte r for routine checking of intraute rine contrace p dev;Prac regina ID: 0001 Marija dale, [facility] 17:21:[address] Concept Completed 201706/06/2020 Encntr for general adult medical exam w/o abnormal findings ;Recorde d Elsewher e: No Locat ion: [facility] S ource: EHR Manager Security divya: N Practi ce ID: 0001 Rodo lable Time: 03:45:00 PM [facility] 17:21:53 Body mass index 30+ - obesity [id number] Completed 201706/06/2020 Body mass index (BMI) 39.0-39. 9, adult;Re corded Elsewher e: No Locat ion: [facility] S ource: EHR Manager Security divya: N Practi ce ID: [id number] Rodo lable Time: 03:45:00 PM Marija Raines [facility] 17:21:43 Problem Notes None recorded. Medical Equipment None Reported. Allergies Allergen ID Allergen Name Allergen Category Reaction Reaction Severity Criticality Documentation Date Start Date Code Code System Note Provider Name and Address Organization Details Recorded Time 08136 cephalexi n medicatio n Not available Not available Not available 02/05/20202230 RxNorm Marija dale [facility] 17:38:18 Medications Name Sig Start Date Stop Date Status Note LastModified by Organization Details LastModified Time Mirena 21 mcg/24 hr (up to 8 years) 52 mg intrauter ine device 2016 active Not Available Not Available Not Avai lable Synthroid 25 mcg tablet take 1 tablet by oral route every day 02/04 completed Prescrib ed Elsewher e: No Locat ion: [facility] odify By: [email or web address] z Encoun ter DateTime : 07/06/19 09:25:12 AM Not Available Not Available Not Available NuvaRing 0.12 mg-0.015 mg/24 hr vaginal insert 1 vaginal ring by vaginal route every month leave in place for 3 weeks, remove for 1 week 12/18 completed Prescrib ed Elsewher e: No Locat ion: [facility] odify By: shane avila DateTime : 07/06/19 17 09:25:12 AM Not Available Not Available Not Available Ortho-Cyc patsy (28) 0.25 mg-35 mcg tablet take 1 tablet by oral route every day 01/07 completed Prescrib ed Elsewher e: No Locat ion: [facility] odify By: naif tz Encou nter DateTime : 04/27/19 15 03:30:00 PM Not Available Not Available Not Available Vitals Date Recorded Body height Body mass index (BMI) Body weight Systolic And Diastolic Systolic And Diastolic Provider Name and Address Organization Details Last Updated DateTime 06/07/2020 170.18 cm 31.2 kg/m2 55555.88 g 143/93 mm[Hg] 136/94 mm[Hg] [facility] 1 14:34:47 Date Recorded Body height Body mass index (BMI) Body weight Systolic And Diastolic Systolic And Diastolic Provider Name and Address Organization Details Last Updated DateTime 06/29/2020 170.18 cm 31.8 kg/m2 32925.25 g 146/96 mm[Hg] 137/92 mm[Hg] [facility] 1 11:44:24 Social History None recorded. Functional Status None recorded. Mental Status None recorded. Family History Relationship Description Onset Age of this Age Resolved Age Notes LastModified by Organization Details LastModified Time Maternal Grandmother Hypercholest erolemia [email or web address] Not available 2020 17:25:27 Paternal Grandfather Hypercholest erolemia [email or web address] Not available 2020 17:25:34 Paternal Grandfather Hypertensive disorder [email or web address] Not available 2020 17:25:46 Maternal Uncle Seizure Not available 17:25:52 Medical History Condition Response [...] SNOMED-CT Code Diagnosis ICD10 Code Diagnosis Note [id number] Alena Troy CNM [facility] [address] [address] 06/07/2020 14:25:50 06/07/2020 15:38:56 Abnormal uterine bleeding [id number] 9100 N93.9 U/S ordered. Will await results. 10477 Barron Lyman MD [facility] [address] [address] 06/14/2020 16:51:30 06/14/2020 17:05:55 Abnormal uterine bleeding 9684125306 9100 N93.9 65394 Alena Troy, [facility] [address] [address] 06/29/2020 11:35:16 06/30/2020 16:11:01 Dyspareunia 14009577 N94.10 More discomfort in anterior wall/bladd er [...] any additional abnormal bleeding. Blood in urine [id number] R31.9 Health Concerns Section Related Observation LastModified by Organization Detai ls LastModified Time None Recorded Concern Status LastModified by Organization Details LastModified Time None Recorded Advance Directives Directive None Recorded Payers Insurance Date Sequence Insurance Name Policy Number Policy Gaspar Covered Member ID Gaspar Member ID Guarantor Name 08/06/2020 1 [facility] [id number] Abner Cornejo [id number] Phomichoacanoyx [facility] Episode No OBEpisode recorded.
[2024-09-15 18:45] LABS: Hematocrit 35.5 % (37.0-47.0); Hemoglobin 12.0 g/dL (12.0-15.0); Immature Granulocyte Percent A 0.7 % (0-0.5); Lymphocytes Absolute Auto 1.86 K/mm3 (0.9-3.2); Mean Corpuscular HGB Conc 33.8 g/dl (32-36); Mean Corpuscular Hemoglobin 30.2 pg (26-34); Mean Corpuscular Volume 89.2 fl (80-100); Nucleated Red Blood Cells Absolute Auto 0.000 K/mm3 (0.0-0.012); Nucleated Red Blood Cells Perc 0.0 % (0.0-0.2); Platelet Count Result 280 k/mm3 (150-375); Red Blood Count 3.98 M/mm3 (4.2-5.4); White Blood Count 9.5 K/mm3 (4.5-10.0)
[2024-09-15 19:09] LABS: Total Protein Urine Random 17 mg/dL; Ur Ttl Prot Creatinine Ratio 0.32 mg/mg (0-0.20)
[2024-09-15 19:42] LABS: Alanine Aminotransferase 41 U/L (6-35); Albumin Level 3.1 g/dL (3.5-5.1); Alkaline Phosphatase 136 U/L (38-126); Anion Gap 6 mmol/L (4-12); Aspartate Amino Transferase 53 U/L (14-36); Bilirubin,Total 0.3 mg/dL (0.2-1.3); Blood Urea Nitrogen 4 mg/dL (7-17); Calcium 8.9 mg/dL (8.4-10.2); Carbon Dioxide 22 mmol/L (22-30); Chloride 107 mmol/L (98-107); Estimated Glomerular Filt Rate > 60; Glucose 105 mg/dL (65-110); Potassium 3.3 mmol/L (3.4-5.0); Sodium 135 mmol/L (137-145); Total Protein 6.1 g/dL (6.3-8.2)
== END 2024-09-15 12:48 | disposition home or self-care (01) ==
LOC: ANHGOSHLAB 12:49
DX: O14.90 Unspecified pre-eclampsia, unspecified trimester (principal); O12.12 Gestational proteinuria, second trimester; Z3A.00 Weeks of gestation of pregnancy not specified
CPT/HCPCS: 36415; 80053; 82570; 84156; 85025

== ENCOUNTER 2024-09-17 08:55 | Outpatient (RCR) | payer OTHER, SELFPAY ==
[2024-08-24 09:41] VITALS: BP 132/72; PULSE 103
[2024-08-31 09:30] VITALS: BP 130/73; PULSE 107
[2024-09-07 09:39] VITALS: BP 125/77; PULSE 114
[2024-09-17 09:38] VITALS: BP 127/75; PULSE 86
== END 2024-10-15 13:35 | disposition other institution (70) ==
LOC: ANHOBOP 08:55
PROVIDERS: Visit Provider Obstetrics & Gynecology
DX: O26.893 Other specified pregnancy related conditions, third trimester (principal); R03.0 Elevated blood-pressure reading, without diagnosis of hypertension; Z3A.32 32 weeks gestation of pregnancy; Z3A.33 33 weeks gestation of pregnancy; Z3A.34 34 weeks gestation of pregnancy; Z3A.35 35 weeks gestation of pregnancy
CPT/HCPCS: 36415; 59025; 80053; 81050; 82570; 84156; 84550; 85025; J2274

== ENCOUNTER 2024-09-21 11:03 | Inpatient (IN) | payer OTHER, SELFPAY ==
[2024-09-21] VITALS (178 sets, daily range): BP systolic 102–141; BP diastolic 59–95; PULSE 67–124; TEMP 36.4–36.6; O2SAT 96–100; BMI 39.7
--- NOTE | 2024-09-21 11:03 | LDADM ---
This patient, Krupa Madrid, was admitted to Labor/Delivery/Recovery 103 on 09/21/24 at 11:03. Plans for labor, pain management and were discussed with patient. Patient/family oriented to hospital policies and general routines including ID bracelet, bed and alarms, visiting hours, pain management, procedures, bathroom and other care routines, personal items, smoking policy, room service/diet and guest tray routines, security routines, and visiting hours. Patient/Family are encouraged to report perceived risks to care and to ask questions if they do not understand what they are told or what they should do. See OBIX for further documentation.
--- OUTSIDE RECORDS SUMMARY | 2024-09-21 11:33 | XMS_ITS | Encounter Summary ---
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 Name Role Phone Unavailable Primary Care Provider [...] [address] [place] [address] Phone: tel: fax: Referral ID Status Reason Start Date Expiration Date Visits Re quested Visits Authorized [id number] Open 09/09/2024 09/09/2025 4 4 Reason for [...] [address] [place] [address] Phone: tel: fax: Referral ID Status Reason Start Date Expiration Date Visits Re quested Visits Authorized [id number] Open 09/09/2024 09/09/2025 4 4 Encounter Details Date Type Department Care Team (Late st Contact Info) Description 09/21/2024 10:02 AM CDT Hospital Encounter 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 Patient's labs from last week are back and reviewed with Evelio Acevedo NP and ALOK today. Patient reports positive movement. Denies vaginal bleeding, leakage of fluid, and cramping. Patient has been having constant daily headaches that are just there no worse or better per patient. She has mild edema in feet, ankles and hands and denies RUQ pain or visual changes. Patient reports edema worsens in afternoon. Dr. Zafar and RAGS LABORER both agree patient has pre eclampsia with severe features and due to rising liver enzymes she should be sent to L&D for IOL. Spoke with Terri at Dr. Ellison office and OB judy to deliver patient at local hospital. Discussed with patient that since liver enzymes are climbing and patient is still having symptoms she should go to hospital for delivery. Patient verbalized understanding. M recommends US tech get presentation and DVP today prior to patient going to [facility] for IOL. Halie Marcus RN 09/21/2024 10:56 AM documented in this encounter Plan of Treatment Scheduled Orders Name Type Priority Associated Diagnoses Orde r Schedule CBC WITH DIFFERENTIAL Lab Routine Preeclampsia, third trimester (HCC) 1 Occurrences starting 09/21/2024 until 09/16/2025 COMPREHENSIVE METABOLIC PANEL Lab Routine Preeclampsia, third trimester (HCC) 1 Occurrences starting 09/21/2024 until 09/16/2025 PROTEIN CREATININE RATIO URINE RANDOM PNL Lab Routine Preeclampsia, third trimester (HCC) 1 Occurrences starting 09/21/2024 until 09/16/2025 Biophysical Profile w NST MATRNL MED Routine 35 weeks gestation of (HCC) Obesity affecting in third trimester, unspecified obesity type (HCC) Preeclampsia, third trimester (HCC) Benign essential hypertension, antepartum (HCC) 1 Occurrences starting 09/21/2024 until 09/21/2024 documented as of this encounter Visit Diagnoses Diagnosis Obesity affecting in third trimester, unspecified obesity type (HCC)- Primary Preeclampsia, third trimester (HCC) Benign essential hypertension, antepartum (HCC) 36 weeks gestation of (HCC) state, incidental 35 weeks gestation of (HCC) state, incidental documented in this encounter
--- OUTSIDE RECORDS SUMMARY | 2024-09-21 11:33 | XMS_ITS | Clinical Summary ---
Author Organization [facility] Address [address] [place] [address] Care Team Providers Care Paintings Restorer Name Role Phone Unavailable Primary Care Provider Unavailabl e Source Comments [facility],non-owned Affiliates and Associated Physician Practices is amultiple site organization consisting of ambulatory clinics and hospital sitesin [place], [place], [place] and [place]. This disclosure is being madepursuant to the Care Everywhere program and may not contain all information available regarding this patient. Last updated 17.[facility] Allergies Active Allergy Reactions Criticality Noted Date [...] organization. Date Type Department Care Team Description 09/21/2024 10:02 AM CDT Hospital Encounter [facility] [address] [place] [id number] Laureen Zafar MD 09/14/2024 2:27 PM CDT - 09/14/2024 11:59 PM CDT Hospital Encounter [facility] [address] [place] [address] Chadwick Farrell MD Discharge Disposition: Home or Self Care 09/09/2024 2:30 PM CDT - 09/09/2024 11:59 PM CDT Hospital Encounter [facility] [address] [place] [address] Beto Kraft MD Discharge Disposition: Home or Self Care 08/12/2024 2:18 PM CDT - 08/12/2024 11:59 PM CDT Hospital Encounter [facility] [address] [place] [address] Marleny Cruz MD Discharge Disposition: Home or Self Care 07/27/2024 Telephone [facility] [address] [place] [phone] Halie Marcus, RN Returned Call (Left message for patient to go to local L&D for evaluation of Pre eclampsia symptoms of floaters. 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 in the next couple weeks.) 07/27/2024 Telephone [facility] [address] [place] [phone] Halie Marcus, RN Update (Patient called to report symptoms of possible pre eclampsia.) 07/15/2024 1:53 PM CDT - 07/15/2024 11:59 PM CDT Hospital Encounter [facility] [address] [place] [phone] Beto Kraft MD Discharge Disposition: Home or Self Care 07/15/2024 1:53 PM CDT - 07/15/2024 11:59 PM CDT Hospital Encounter [facility] [address] [place] [phone] Beto Krfat MD Discharge Disposition: Home or Self Care 06/30/2024 Telephone [facility] [address] [place] [phone] Halie Marcus, GOLD Question (Called patient to see if she can come in sooner that 2:30 for appt on 07/15/24. Patient has last day of school and will come directly after but will not be able to come at 1345, maybe closer to 2pm. Patient labs reviewed with her and she will bring blood pressures for review to her appt. 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 Gender Identity Not on file Sexual Orientation [...] 06/16/2024 9:57 AM CDT Plan of Treatment Health Maintenance Due Date Last Done Comments [...] (HCC) Encounter for follow-up ultrasound of anatomy ([facility]) SONOGRAM - COMPLETE Routine 08/12/2024 2 :28 [...] tone 2: Amniotic fluid volume NST: reactive /10 Biophysical profile score Non Stress Test NST [...] with 2x weekly NST Coding ====== Procedures 77356: [place] Uterus Limited 53657: Biophysical Profile W NST [employer] PACS Anatomical Region Laterality Modality Other 09/14/2024 3:25 PM CDT us Myra Ellison MD [facility] ORDERABLES Edited Result - Final * Sonogram - Complete (09/09/2024 3:30 PM CDT) Only the most recent of3 [...] 5 lb 2 oz EFW by Hadlock ([id number]) appropriate Growth Overview Exam date [place] BPD [...] volume is normal. The biophysical profile is 11/27. Comment ======== U/S cannot detect all structural, genetic, or functional , placental, or maternal abnormalities Follow-up ======== Continue 2x-weekly NST + 1x-weekly BPP pending delivery Coding ====== Procedures 63004: [place] [address]: Biophysical Profile W NST [facility] PACS Anatomical Region Laterality Modality Other 09/09/2024 3:30 PM CDT Myra Ellison MD [facility] ORDERABLES Edited Result - Final from Last 3 Months Insurance * Guarantor: SANTANA HELLER Account Type Relation to Patient Date of Phone Billing Address Personal/Family Spouse
[2024-09-21 12:05] LABS: Hematocrit 36.6 % (37.0-47.0); Hemoglobin 12.7 g/dL (12.0-15.0); Immature Granulocyte Percent A 1.0 % (0-0.5); Lymphocytes Absolute Auto 1.74 K/mm3 (0.9-3.2); Mean Corpuscular HGB Conc 34.7 g/dl (32-36); Mean Corpuscular Hemoglobin 30.4 pg (26-34); Mean Corpuscular Volume 87.6 fl (80-100); Nucleated Red Blood Cells Absolute Auto 0.000 K/mm3 (0.0-0.012); Nucleated Red Blood Cells Perc 0.0 % (0.0-0.2); Platelet Count Result 303 k/mm3 (150-375); Red Blood Count 4.18 M/mm3 (4.2-5.4); White Blood Count 12.4 K/mm3 (4.5-10.0)
[2024-09-21 12:27] LABS: Alanine Aminotransferase 104 U/L (6-35); Albumin Level 3.4 g/dL (3.5-5.1); Alkaline Phosphatase 154 U/L (38-126); Anion Gap 7 mmol/L (4-12); Aspartate Amino Transferase 40 U/L (14-36); Bilirubin,Total 0.3 mg/dL (0.2-1.3); Blood Urea Nitrogen 7 mg/dL (7-17); Calcium 9.1 mg/dL (8.4-10.2); Carbon Dioxide 20 mmol/L (22-30); Chloride 108 mmol/L (98-107); Estimated Glomerular Filt Rate > 60; Glucose 89 mg/dL (65-110); Potassium 4.0 mmol/L (3.4-5.0); Sodium 135 mmol/L (137-145); Total Protein 6.7 g/dL (6.3-8.2)
[2024-09-21 12:27] LABS: Uric Acid 4.1 mg/dL (2.5-7.5)
[2024-09-21 12:55] LABS: Syphilis IgG/IgM Antibody Non-Reactive (Nonreactive)
[2024-09-21] MEDS: DINOPROSTONE 10 MG VAG INSERT VAGINAL (13:34)
[2024-09-21] MEDS: LACTATED RINGERS 1,000 ML 999 ML IV CONT (15:59)
--- NOTE | 2024-09-21 16:50 | PM.IMHP ---
H&P: HPI History of Present Illness Date/Time: 09/21/24 14:49 Chief Complaint: headache Narrative: Krupa is a 24yo @ 36.2wks who presented to L&D from the [facility] office. She has been diagnosed with proteinuria in her second trimester; but only started having elevated blood pressures in her third trimester; meeting criteria for pre-eclampsia. She has been having a headache (03/30, but has not taken any Tylenol) and was found to have elevated liver enzymes; [facility] now recommended delivery today. She reports good movement. NST/BPP 11/27. No contractions. No VB or LOF. Her is complicated by: - Anxiety on lexapro - Obesity; ASA 81mg qhs, early 1 hour - GBS bacteruria; needs ppx in labor - CHTN? vs PIH (urine protein >300 x2) --> pre-eclampsia now with severe features Review of Systems Constitutional: Constitutional: Denies chills, Denies fever(s) and Reports headache(s) Eyes: Eyes: Denies change in vision ENT: Denies headache(s) Cardiovascular: Cardiovascular: Denies chest pain and Denies dyspnea Respiratory: Respiratory: Denies dyspnea Genitourinary: Genitourinary: Denies abnormal vaginal bleeding and Denies vaginal discharge Neurologic: Reports headache(s) Psychiatric: Psychiatric: Denies anxiety and Denies depression [facility] Past Medical History Medical History Protein in urine Irritable bowel syndrome with diarrhea Hyperplastic colon polyp Gastritis Obesity GERD (gastroesophageal reflux disease) Diarrhea Generalized anxiety disorder Surgical History Surgical History History of laparoscopic cholecystectomy 12/27/22 PDC H/O gynecological procedure 09/24/23 Mirena IUD removal mirena iud insertion 11/2016 Family History Family History Grandparent History of skin cancer Maternal Grandmother Hypertension Paternal Grandfather Social History Social History Smoking status: Never smoker Alcohol intake: former Alcohol use details: RARE Substance use: former Substance use type: marijuana Other substance usage details: sometimes Do You Feel Safe in your Home?: Yes Lack of Transportation: No Lack of Food: Never True Current Housing: I Have Housing Concerned About Future Housing: No Difficulty Paying Gas/Electric Bills: No Difficulty Paying for Meds: No Currently Unemployed: No Education: Bachelor's Degree Difficulty w/ Childcare or Family Care: No Living arrangements: with family Additional living arrangements comments: [facility] 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 Gender identity (if verbalized by the patient): Female Sexual Orientation (if Verbalized by the Patient): Straight or Heterosexual Spiritual care concerns: No Meds Home Medications and Allergies Home Medications ?Medication ?Instructions ?Recorded ?Confirmed ?Type docosahexaenoic acid 200 mg 200 mg PO HS 05/25/24 09/14/24 History capsule ( DHA) aspirin 81 mg chewable tablet 81 mg PO DAILY 06/17/24 09/14/24 History calcium 600 mg (as 1 tablet PO HS 09/08/24 09/14/24 History carbonate)-vitamin D3 5 mcg (200 unit) tablet (Calcium 600 + D(3)) escitalopram oxalate 10 mg tablet 10 mg PO HS 09/08/24 09/14/24 History ondansetron 4 mg disintegrating 4 mg PO Q6H PRN nausea and 09/08/24 09/14/24 Rx tablet vomiting #30 tabs Allergies Allergy/AdvReac Type Severity Reaction Status Date / Time cefdinir Allergy Intermediate Hives Verified 09/14/24 08:00 Vital Signs Vital Signs - 24 hr 09/21/24 11:55 09/21/24 12:07 09/21/24 12:08 Temperature 98 F Pulse Rate 105 H Blood Pressure 135/83 Pulse Oximetry 99 09/21/24 12:12 09/21/24 12:17 09/21/24 12:22 Temperature Pulse Rate Blood Pressure Pulse Oximetry 98 98 97 09/21/24 12:27 09/21/24 12:30 09/21/24 12:32 Temperature Pulse Rate 111 H Blood Pressure 135/89 Pulse Oximetry 98 98 09/21/24 12:37 09/21/24 12:42 09/21/24 12:43 Temperature Pulse Rate Blood Pressure Pulse Oximetry 98 98 98 09/21/24 12:45 09/21/24 12:46 09/21/24 12:51 Temperature Pulse Rate 116 H Blood Pressure 140/95 H Pulse Oximetry 98 98 09/21/24 12:56 09/21/24 12:59 09/21/24 13:00 Temperature Pulse Rate 111 H Blood Pressure 130/82 Pulse Oximetry 98 98 09/21/24 13:04 09/21/24 13:09 09/21/24 13:14 Temperature Pulse Rate Blood Pressure Pulse Oximetry 97 98 98 09/21/24 13:15 09/21/24 13:19 09/21/24 13:35 Temperature Pulse Rate 111 H Blood Pressure 141/85 H Pulse Oximetry 96 97 09/21/24 13:40 09/21/24 13:45 09/21/24 13:50 Temperature Pulse Rate 124 H Blood Pressure 122/74 Pulse Oximetry 99 98 98 09/21/24 13:55 09/21/24 14:00 09/21/24 14:05 Temperature Pulse Rate 101 H Blood Pressure 116/65 Pulse Oximetry 98 98 99 09/21/24 14:10 09/21/24 14:15 09/21/24 14:20 Temperature Pulse Rate 104 H Blood Pressure 124/80 Pulse Oximetry 98 98 99 09/21/24 14:25 09/21/24 14:30 09/21/24 14:35 Temperature Pulse Rate 111 H Blood Pressure 131/74 Pulse Oximetry 99 99 98 09/21/24 14:36 09/21/24 14:41 09/21/24 14:45 Temperature Pulse Rate 100 Blood Pressure 114/77 Pulse Oximetry 98 98 09/21/24 14:46 Temperature Pulse Rate Blood Pressure Pulse Oximetry 97 Exam Const: General: cooperative, comfortable, no acute distress and obese Nutritional Appearance: obese Orientation/consciousness: patient oriented x3 Resp: Effort & Inspection: normal respiratory effort Cardio: Rate: regular rate GI: GI Palp: No abdominal tenderness : Other: FHT's: 150's/ mod joshua/ + accels/ no decels - cat 1 TOCO: irregular ctxs Cervix: 1/thick/high Membranes: intact Presentation: cephalic Skin: General skin exam: normal color Neuro: General: patient oriented x3 Extrem: General: normal to inspection Psych: Appearance: grossly normal Affect: normal affect Attitude: cooperative H&P: Results Labs Labs: Short CBC 09/21/24 Range/Units 11:37 WBC 12.4 H (4.5-10.0) K/mm3 Hgb 12.7 (12.0-15.0) g/dL Hct 36.6 L (37.0-47.0) % Plt Count 303 (150-375) k/mm3 BMP 09/21/24 11:37 Sodium 135 L Potassium 4.0 Chloride 108 H Carbon Dioxide 20 L BUN 7 Creatinine 0.43 L Glucose 89 Calcium 9.1 Liver Function 09/21/24 Range/Units 11:37 Total Bilirubin 0.3 (0.2-1.3) mg/dL AST 40 H (14-36) U/L ALT 104 H (6-35) U/L Alkaline Phosphatase 154 H (38-126) U/L Albumin 3.4 L (3.5-5.1) g/dL Assessment and Plan Assessment and plan (1) Pre-eclampsia: Code(s): O14.90 - Unspecified pre-eclampsia, unspecified trimester Status: Acute (2) GBS (group B streptococcus) UTI complicating : Code(s): O23.40 - Unspecified infection of urinary tract in , unspecified trimester; B95.1 - Streptococcus, group B, as the cause of diseases classified elsewhere Status: Acute Plan - Admit for induction of labor; risks and benefits discussed - Cervidil for cervical ripening - Continuous monitoring - GBS positive; ancef per protocol to start at 0000 09/22/24 - Will monitor BPs closely; labs w/ elevated LFTs, BPs in normal/moderate range, asymptomatic. Magnesium sulfate in active labor unless severe range BP noted - Anesthesia consult PRN pain
--- NOTE | 2024-09-21 21:17 | WPDANESEPP ---
Anes - Eval Pre Procedure Procedure: labor epidural Date/Time: 09/21/24 21:17 Surgeon: epifanio Preop Diagnosis: pain during labor Pre Op Diagnosis: IOL Patient Data Age: 24 Gender: F Height: 1.63 m Weight: 105 kg Last Vital Signs Temp 36.4 C 09/21/24 18:32 Pulse 116 H 09/21/24 21:00 BP 102/78 09/21/24 21:00 Pulse Ox 100 09/21/24 21:14 Allergies Allergy/AdvReac Type Severity Reaction Status Date / Time cefdinir Allergy Intermediate Hives Verified 09/14/24 08:00 Home Medications ?Medication ?Instructions ?Recorded ?Confirmed ?Type docosahexaenoic acid 200 mg 200 mg PO HS 05/25/24 09/21/24 History capsule ( DHA) aspirin 81 mg chewable tablet 81 mg PO DAILY 06/17/24 09/21/24 History calcium 600 mg (as 1 tablet PO HS 09/08/24 09/21/24 History carbonate)-vitamin D3 5 mcg (200 unit) tablet (Calcium 600 + D(3)) escitalopram oxalate 10 mg tablet 10 mg PO HS 09/08/24 09/21/24 History ondansetron 4 mg disintegrating 4 mg PO Q6H PRN nausea and 09/08/24 09/21/24 Rx tablet vomiting #30 tabs Laboratory Tests 09/21/24 09/21/24 11:37 11:38 WBC 12.4 H K/mm3 (4.5-10.0) RBC 4.18 L M/mm3 (4.2-5.4) Hgb 12.7 g/dL (12.0-15.0) Hct 36.6 L % (37.0-47.0) MCV 87.6 fl (80-100) MCH 30.4 pg (26-34) MCHC 34.7 g/dl (32-36) RDW 13.2 % (11.5-14.5) Plt Count 303 k/mm3 (150-375) MPV 10.6 H fl (7.4-10.4) Immature Gran % (Auto) 1.0 H % (0-0.5) Neut % (Auto) 75.8 H % (45.5-73.1) Lymph % (Auto) 14.0 L % (18.3-44.2) [place] % (Auto) 8.6 H % (2.6-8.5) Eos % (Auto) 0.4 % (0-4.4) Baso % (Auto) 0.2 % (0.2-1.2) Lymph # (Auto) 1.74 K/mm3 (0.9-3.2) [place] # (Auto) 1.1 H K/mm3 (0.1-0.6) Eos # (Auto) 0.1 K/mm3 (0-0.3) Baso # (Auto) 0.0 K/mm3 (0.0-0.1) Abs Immat Gran (auto) 0.13 H K/mm3 (0.00-0.031) Absolute Neuts (auto) 9.4 H K/mm3 (1.3-6.7) Absolute Nucleated RBC 0.000 K/mm3 (0.0-0.012) Nucleated RBC % 0.0 % (0.0-0.2) Sodium 135 L mmol/L (137-145) Potassium 4.0 mmol/L (3.4-5.0) Chloride 108 H mmol/L (98-107) Carbon Dioxide 20 L mmol/L (22-30) Anion Gap 7 mmol/L (4-12) BUN 7 mg/dL (7-17) Creatinine 0.43 L mg/dL (0.7-1.0) Estim Creat Clear Calc Not Reportable Estimated GFR > 60 (59 - ) Glucose 89 mg/dL (65-110) Uric Acid 4.1 mg/dL (2.5-7.5) Calcium 9.1 mg/dL (8.4-10.2) Total Bilirubin 0.3 mg/dL (0.2-1.3) AST 40 H U/L (14-36) ALT 104 H U/L (6-35) Alkaline Phosphatase 154 H U/L (38-126) Total Protein 6.7 g/dL (6.3-8.2) Albumin 3.4 L g/dL (3.5-5.1) Syphilis IgG/IgM Ab Non-reactive (Nonreactive) Blood Type O Positive Antibody Screen Negative Patient hx anesthesia problems: none Family hx anesthesia problems: none Results Review: All pre-operative results and documents have been reviewed as part of the pre-operative evaluation. [facility] Past Medical History Medical History Protein in urine Irritable bowel syndrome with diarrhea Hyperplastic colon polyp Gastritis Obesity GERD (gastroesophageal reflux disease) Diarrhea Generalized anxiety disorder Surgical History Surgical History History of laparoscopic cholecystectomy 12/27/22 PDC H/O gynecological procedure 09/24/23 Mirena IUD removal mirena iud insertion 11/2016 Family History Family History Grandparent History of skin cancer Maternal Grandmother Hypertension Paternal Grandfather Social History Social History Smoking status: Never smoker Alcohol intake: former Alcohol use details: RARE Substance use: former Substance use type: marijuana Other substance usage details: sometimes Do You Feel Safe in your Home?: Yes Lack of Transportation: No Lack of Food: Never True Current Housing: I Have Housing Concerned About Future Housing: No Difficulty Paying Gas/Electric Bills: No Difficulty Paying for Meds: No Currently Unemployed: No Education: Bachelor's Degree Difficulty w/ Childcare or Family Care: No Living arrangements: with family Additional living arrangements comments: [place] 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
[2024-09-21] MEDS: ESCITALOPRAM OXALATE 10 MG TABLET PO (22:04)
[2024-09-22] VITALS (400 sets, daily range): BP systolic 92–135; BP diastolic 32–102; PULSE 60–279; RESP 16–18; TEMP 36.1–36.6; O2SAT 97–100
[2024-09-22] MEDS: ceFAZolin 2 GM in SODIUM CHLORIDE 0.9% IV 50 ML 100 ML IVPB (00:30)
[2024-09-22] MEDS: OXYTOCIN 30 UNITS/NS 500 ML 30 UNITS/500 ML BAG 6 UNITS IV CONT (02:45)
[2024-09-22] MEDS: LACTATED RINGERS 1,000 ML 125 ML IV CONT ×2 (04:09→15:29)
--- NOTE | 2024-09-22 07:44 | PM.OBPNLAB ---
Pain Control Date/time seen: 09/22/24 07:44 Pain control: tolerating well Pelvic Exam Dilation (cm): 1 Effacement (%): 20 station: -3 Amniotic membrane status: Intact Contractions Monitor mode: External Status status: Category l Assessment and Plan Pitocin rate (mU/min): 18 Assessment: induction ongoing Plan: continuous present management Comments: - cook balloon placed 0740 with 60/60cc - pitocin down to 4; max 10
[2024-09-22] MEDS: ceFAZolin 1 GM in SODIUM CHLORIDE 0.9% IV 50 ML 100 ML IVPB ×3 (08:42→23:48)
[2024-09-22] MEDS: fentaNYL CITRATE INJ (*CRX) 100 MCG/2 ML VIAL 50 MCG IV PUSH (10:32)
--- NOTE | 2024-09-22 12:44 | PM.OBPNLAB ---
Pain Control Date/time seen: 09/22/24 12:44 Pain control: epidural Pelvic Exam Dilation (cm): 4 (.5) Effacement (%): 50 station: -3 Amniotic membrane status: Ruptured (AROM, clear 1240) Contractions Monitor mode: Internal (placed on this exam) Status status: Category l Assessment and Plan Pitocin rate (mU/min): 10 Assessment: induction ongoing Plan: continuous present management Comments: - continue increasing pitocin per protocol - continue ancef for gbs - will start magnesium sulfate ppx now; bps in normal/mod range, no symptoms
[2024-09-22] MEDS: MAGNESIUM SULF 4 GM/WATER100ML 4 GM/100 ML BAG IVPB (13:46)
[2024-09-22] MEDS: MAGNESIUM SULF 20GM/WATER500ML 500 ML 50 MG IV CONT (14:37)
[2024-09-22] MEDS: ESCITALOPRAM OXALATE 10 MG TABLET PO (23:48)
[2024-09-23] VITALS (84 sets, daily range): BP systolic 95–139; BP diastolic 41–85; PULSE 77–131; RESP 14–23; TEMP 36.5–37; O2SAT 95–100
[2024-09-23] MEDS: MAGNESIUM SULF 20GM/WATER500ML 500 ML 50 MG IV CONT ×3 (00:14→21:05)
[2024-09-23] MEDS: TERBUTALINE SULFATE 1 MG/ML VIAL 0.25 MG SUB-Q (00:54)
[2024-09-23 01:11] LABS: Hematocrit 38.2 % (37.0-47.0); Hemoglobin 12.9 g/dL (12.0-15.0); Immature Granulocyte Percent A 0.5 % (0-0.5); Lymphocytes Absolute Auto 1.89 K/mm3 (0.9-3.2); Mean Corpuscular HGB Conc 33.8 g/dl (32-36); Mean Corpuscular Hemoglobin 30.1 pg (26-34); Mean Corpuscular Volume 89.0 fl (80-100); Nucleated Red Blood Cells Absolute Auto 0.000 K/mm3 (0.0-0.012); Nucleated Red Blood Cells Perc 0.0 % (0.0-0.2); Platelet Count Result 269 k/mm3 (150-375); Red Blood Count 4.29 M/mm3 (4.2-5.4); White Blood Count 15.5 K/mm3 (4.5-10.0)
[2024-09-23 01:21] LABS: Magnesium 4.9 mg/dL (1.6-2.3)
[2024-09-23 01:23] LABS: Alanine Aminotransferase 81 U/L (6-35); Albumin Level 3.3 g/dL (3.5-5.1); Alkaline Phosphatase 188 U/L (38-126); Anion Gap 5 mmol/L (4-12); Aspartate Amino Transferase 38 U/L (14-36); Bilirubin,Total 0.6 mg/dL (0.2-1.3); Blood Urea Nitrogen 5 mg/dL (7-17); Calcium 7.4 mg/dL (8.4-10.2); Carbon Dioxide 21 mmol/L (22-30); Chloride 102 mmol/L (98-107); Estimated CRCL calculation 174 ml/min; Estimated Glomerular Filt Rate > 60; Glucose 91 mg/dL (65-110); Potassium 3.8 mmol/L (3.4-5.0); Sodium 128 mmol/L (137-145); Total Protein 6.4 g/dL (6.3-8.2)
[2024-09-23] MEDS: ONDANSETRON INJ 4 MG/2 ML VIAL IV PUSH (02:13)
--- NOTE | 2024-09-23 02:31 | PM.OBPNLAB ---
Pain Control Date/time seen: 09/23/24 02:31 Pain control: epidural Pelvic Exam Dilation (cm): 5 (.5) Effacement (%): 50 station: -2 Amniotic membrane status: Ruptured (AROM, clear 1240) Contractions Monitor mode: Internal (placed on this exam) Status status: Category ll Comments: multiple prolonged decelerations Assessment and Plan Pitocin rate (mU/min): 0 (held) Plan: Comments: - she has remained at 5.5cm with adequate contractions since 1800 - pit held due to prolonged decel; when restarted at 2mu, another 5min prolonged decel occurred, now with decreased variability - clinda 900mg, gent 5mg/kg, azithro 500mg - proceed with ; risks and benefits discussed
--- NOTE | 2024-09-23 02:34 | WPDHPUPDATE1 ---
History and Physical Update Update Date/Time: 09/23/24 02:34 History and Physical has been reviewed, including an updated exam of the patient. There are NO changes in the patient's condition. Risks, benefits, and alternatives have been discussed and questions answered. Patient agrees to proceed with section.
[2024-09-23] MEDS: ACETAMINOPHEN 500 MG TABLET 1000 MG PO ×4 (02:38→22:44)
[2024-09-23] MEDS: AZITHROMYCIN IV 500 MG VIAL (02:38)
[2024-09-23] MEDS: FAMOTIDINE 20 MG/2 ML VIAL (02:38)
--- NOTE | 2024-09-23 03:45 | P.PCNOB_ITS ---
OB - Delivery Note Procedure Delivery date: 09/23/24 Pre-op diagnosis: Decelerations, Positive Group B Strep (GBS) and Preeclampsia w severe features Post-op Diagnosis: Same Induction method: Per Cervidil Protocol Delivery augmentation: Rupture of Membranes, Pitocin and Other (cook balloon) Delivery monitor: Internal FHT and Internal Uterine Prior to decision for section, ACOG/SM labor guidelines were considered and discussed with the patient and staff. Decision made to proceed with the section.: Yes Procedure Performed: Primary Surgeon: Myra Ellison MD Anesthesia type: Epidural Description of Procedure/Findings: Female infant, ROT/OP, nuchal cord noted. Clear fluid. Normal bilateral adnexa. Good hemostasis at end of procedure. Specimen: Yes (placenta) Estimated Blood Loss: 400 Pathology: Yes Complications: No immediate complications Condition: Stable Disposition: Floor [place] Baby Date of : 09/23/24 Time of : 03:07 Gestational Age by Date: 36 (4) Infant gender: Female Weight (pounds): 5 Weight (ounces): 6 presentation: vertex position: Right Occiput Transverse (/slightly OP) Placenta delivery description: Expressed Cord Vessel Description: 3 Vessels and Nuchal Cord score one minute: 7 score five minutes: 9 Narrative: Krupa was counseled on all risks and benefits in detail. She was taken to the operating room where epidural was found to be adequate. She was then prepped and draped in the normal sterile fashion. She received 2g Ancef and Azithromycin 500mg and a time out was performed. A Pfannenstiel incision was made in the skin and carried down to the underlying fascia. The fascia was nicked on either side of the midline and the fascial incision was extended laterally and superiorly using curved Hurst scissors. The fascia was then elevated using Hina clamps and the underlying rectus muscles were dissected off the fascia, superiorly and inferiorly. The rectus muscles were then in the midline and the peritoneum was entered sharply using Metzenbaum scissors. Once adequate exposure was obtained, a Mobius self retractor was placed within the abdomen. A bladder flap was created. A low transverse incision was made on the lower uterine segment and clear fluid was noted. The occiput was brought to the hysterotomy and the head was easily delivered. The shoulders and body then followed without complications, the nuchal was then reduced. The infants mouth and nose were bulb suctioned. The cord was clamped and cut and the was handed off to the awaiting pediatric nurse. A segment of the cord was collected for cord gases. The remaining cord blood was attempted but was too short to allow for adequate collection for typing. With Pitocin infusing, the placenta delivered with gentle traction on the cord without complications. The uterus was then cleared out of all clots and debris using a clean, moist lap. The hysterotomy was then repaired in a running fashion using 0 Vicryl. A second layer imbricating suture was then made using 0 Vicryl. A figure of eight stitch using 0-Vicryl was placed on the left apex of the hysterotomy and it was then found to be hemostatic and good uterine tone was noted. The bilateral adnexa were examined and found to be normal. The pelvis was cleared of all clots and fluid. The Mobius retractor was removed from the abdomen. The peritoneum, muscle, and fascia were examined and made hemostatic with bovie cautery. The fascia was then repaired using a 0 Vicryl suture in a running fashion. The subcutaneous tissue was then irrigated and made hemostatic with bovie cautery. The subcutaneous tissue was then reapproximated using 2-0 Vicryl. The skin was then closed using 4-0 Monocryl in a running subcuticular fashion. A Mepilex dressing was then placed over the incision. Sponge, lap, needle and instrument counts were correct at the end of the procedure x2. The patient tolerated the procedure well and was taken to recovery in a stable condition.
--- NOTE | 2024-09-23 04:24 | S_PTH ---
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
[2024-09-23] MEDS: OXYTOCIN 30 UNITS/NS 500 ML 30 UNITS/500 ML BAG 75 UNITS IV CONT (04:36)
[2024-09-23] MEDS: KETOROLAC 15 MG/ML VIAL (*BKC) IV PUSH ×2 (08:01→16:25)
[2024-09-23] MEDS: LIDOCAINE 5% PATCH 1 PATCH TRANSDERM (08:05)
[2024-09-23] MEDS: DEXTROSE 5%/0.45% SOD CHL 1,000 ML 125 ML IV CONT (11:15)
[2024-09-23] MEDS: oxyCODONE HCL (*CRX) 5 MG TAB IR PO (11:28)
[2024-09-23] MEDS: SIMETHICONE 80 MG TAB.CHEW PO (16:25)
[2024-09-23] MEDS: DOCUSATE SODIUM 100 MG CAPSULE PO (16:25)
[2024-09-23] MEDS: ESCITALOPRAM OXALATE 10 MG TABLET PO (22:44)
[2024-09-23] MEDS: IBUPROFEN 600 MG TABLET PO (22:44)
[2024-09-24] MEDS: DEXTROSE 5%/0.45% SOD CHL 1,000 ML 125 ML IV CONT (00:25)
[2024-09-24 00:31] VITALS: BP 114/57; PULSE 88; RESP 18; TEMP 36.8; O2SAT 96
[2024-09-24 03:35] VITALS: BP 113/60; PULSE 82; RESP 18; TEMP 36.9; O2SAT 96
[2024-09-24] MEDS: IBUPROFEN 600 MG TABLET PO ×4 (03:46→21:53)
[2024-09-24] MEDS: ACETAMINOPHEN 500 MG TABLET 1000 MG PO ×4 (03:46→21:53)
[2024-09-24 04:21] LABS: Hematocrit 31.3 % (37.0-47.0); Hematocrit 32.3 % (37.0-47.0); Hemoglobin 10.6 g/dL (12.0-15.0); Hemoglobin 10.7 g/dL (12.0-15.0); Immature Granulocyte Percent A 0.5 % (0-0.5); Immature Granulocyte Percent A 0.6 % (0-0.5); Lymphocytes Absolute Auto 2.22 K/mm3 (0.9-3.2); Lymphocytes Absolute Auto 2.31 K/mm3 (0.9-3.2); Mean Corpuscular HGB Conc 32.8 g/dl (32-36); Mean Corpuscular HGB Conc 34.2 g/dl (32-36); Mean Corpuscular Hemoglobin 30.3 pg (26-34); Mean Corpuscular Hemoglobin 30.7 pg (26-34); Mean Corpuscular Volume 89.9 fl (80-100); Mean Corpuscular Volume 92.3 fl (80-100); Nucleated Red Blood Cells Absolute Auto 0.000 K/mm3 (0.0-0.012); Nucleated Red Blood Cells Perc 0.0 % (0.0-0.2); Platelet Count Result 253 k/mm3 (150-375); Red Blood Count 3.48 M/mm3 (4.2-5.4); Red Blood Count 3.50 M/mm3 (4.2-5.4); White Blood Count 10.1 K/mm3 (4.5-10.0); White Blood Count 9.8 K/mm3 (4.5-10.0)
[2024-09-24 04:45] LABS: Alanine Aminotransferase 49 U/L (6-35); Albumin Level 2.6 g/dL (3.5-5.1); Alkaline Phosphatase 145 U/L (38-126); Anion Gap 2 mmol/L (4-12); Aspartate Amino Transferase 35 U/L (14-36); Bilirubin,Total 0.2 mg/dL (0.2-1.3); Blood Urea Nitrogen 4 mg/dL (7-17); Calcium 6.4 mg/dL (8.4-10.2); Carbon Dioxide 21 mmol/L (22-30); Chloride 107 mmol/L (98-107); Estimated CRCL calculation 165 ml/min; Estimated Glomerular Filt Rate > 60; Glucose 92 mg/dL (65-110); Potassium 3.6 mmol/L (3.4-5.0); Sodium 130 mmol/L (137-145); Total Protein 5.2 g/dL (6.3-8.2)
--- NOTE | 2024-09-24 07:23 | P.PNOB_ITS ---
OB - PN: Subj Subjective Date/time seen: 09/24/24 07:14 Narrative: POD#1 Krupa reports doing well today. 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 Her pain is controlled. She is tolerating regular diet, voiding, passing gas, and ambulating without issues. The magnesium was discontinued overnight. She denies any issues with her incision. She is breast feeding/pumping. She denies any symptoms of pre-eclamspia OB - PN: Obj Data Labs 09/24/24 04:15 09/24/24 04:15 Labs: Laboratory Results - last 24 hr 09/23/24 01:01 WBC 15.5 H RBC 4.29 Hgb 12.9 Hct 38.2 MCV 89.0 MCH 30.1 MCHC 33.8 RDW 13.2 Plt Count 269 MPV 10.4 Immature Gran % (Auto) 0.5 Neut % (Auto) 79.3 H Lymph % (Auto) 12.2 L [place] % (Auto) 7.4 Eos % (Auto) 0.3 Baso % (Auto) 0.3 Lymph # (Auto) 1.89 [place] # (Auto) 1.1 H Eos # (Auto) 0.0 Baso # (Auto) 0.0 Abs Immat Gran (auto) 0.08 H Absolute Neuts (auto) 12.3 H Absolute Nucleated RBC 0.000 Nucleated RBC % 0.0 Sodium 128 L Potassium 3.8 Chloride 102 Carbon Dioxide 21 L Anion Gap 5 BUN 5 L Creatinine 0.48 L Estim Creat Clear Calc 174 Estimated GFR > 60 Glucose 91 Calcium 7.4 L Magnesium 4.9 H Total Bilirubin 0.6 AST 38 H ALT 81 H Alkaline Phosphatase 188 H Total Protein 6.4 Albumin 3.3 L OB - PN A/P Assessment and Plan (1) S/P primary low transverse : Code(s): Z98.891 - History of uterine scar from previous surgery Status: Acute (2) Pre-eclampsia: Code(s): O14.90 - Unspecified pre-eclampsia, unspecified trimester Status: Acute Plan day: 1 Plan: routine care Comments: - PO pain meds - Regular diet - Ambulation and hydration encouraged - Continue putting baby to breast q2-3hr - PEC w/ SF: s/p magnesium x24 hr PP; BPs in normal range; asymptomatic; labs stable Time Spent With Patient Time: Total time spent is greater than 50% in coordination of care (as documented) at patient's floor/unit and/or counseling patient: Review of Systems 2 Constitutional: Constitutional: Denies chills, Denies fever(s) and Denies headache(s) Eyes: Eyes: Denies change in vision ENT: Denies dizziness and Denies headache(s) Cardiovascular: Cardiovascular: Denies chest pain, Denies palpitations and Denies dyspnea Respiratory: Respiratory: Denies cough and Denies dyspnea Gastrointestinal: Gastrointestinal: Denies nausea and Denies vomiting Genitourinary: Comments: normal bleeding Neurologic: Denies dizziness and Denies headache(s) Endocrine: Endocrine: Denies palpitations Exam 2 Const: General: cooperative, comfortable and no acute distress O rientation/consciousness: patient oriented x3 Resp: Effort & Inspection: normal respiratory effort Auscultation: clear to auscultation bilaterally Cardio: Rate: regular rate GI: Inspection: non-distended and incision (covered with clean dressing) GI Palp: Yes abdominal tenderness (appropriate) and Yes Soft to palpation A uscultation: normal bowel sounds : Other: fundus firm Skin: General skin exam: normal color Neuro: General: patient oriented x3 Extrem: General: normal to inspection Psych: Appearance: grossly normal Affect: normal affect Attitude: c ooperative
[2024-09-24 07:50] VITALS: BP 114/59; PULSE 79; RESP 16; TEMP 37.3; O2SAT 96
[2024-09-24] MEDS: DOCUSATE SODIUM 100 MG CAPSULE PO ×2 (09:06→17:36)
[2024-09-24] MEDS: SIMETHICONE 80 MG TAB.CHEW PO ×3 (09:06→17:36)
[2024-09-24] MEDS: MULTIVIT/MIN/PREN/FOL AC/IRON TABLET 1 TAB PO (09:06)
[2024-09-24] MEDS: oxyCODONE HCL (*CRX) 5 MG TAB IR PO ×2 (09:34→15:50)
--- NOTE | 2024-09-24 10:31 | WPDANLDPN2 ---
Anes-Prog Note L&D Date/Time: 09/24/24 10:31 Comfortable throughout: labor and section Neuraxial method: epidural Epidural/Spinal procedure site: clean & non-tender Neuro status: Neuro function grossly intact. Cardiovascular status: normal Respiratory status: normal Airway patency: baseline Mental status: baseline Post-Op hydration status: normal Vital Signs: Last Vital Signs Temp 99.1 F 09/24/24 07:50 Pulse 79 09/24/24 07:50 Resp 16 09/24/24 07:50 BP 114/59 L 09/24/24 07:50 Pulse Ox 96 09/24/24 07:50 O2 Del Method Room Air 09/24/24 08:15 Pain score (VAS): 0/10 I/O: Intake & Output 09/23/24 09/24/24 09/24/24 23:59 07:59 15:59 Intake Total 2535.8 225 Output Total 1150 2300 700 Balance 1385.8 -2075 -700 Post-procedural complaints: none Patient feedback: Patient satisfied with anesthetic care.
--- NOTE | 2024-09-24 10:31 | WPDANLDNPN2 ---
Anes-Prog Note L&D-Neuraxial Date/Time: 09/24/24 10:31 Neuraxial medications: epidural PF morphine Opiod-related complaints: none Patient feedback: Patient satisfied with post-operative pain management.
[2024-09-24 12:24] VITALS: BP 123/51; PULSE 73; RESP 16; TEMP 36.8; O2SAT 96
[2024-09-24] MEDS: LIDOCAINE 5% PATCH 1 PATCH TRANSDERM (15:50)
[2024-09-24 16:10] VITALS: BP 134/79; PULSE 79; RESP 19; TEMP 37.3; O2SAT 98
[2024-09-24 19:54] VITALS: BP 127/67; PULSE 73; RESP 18; TEMP 37; O2SAT 97
[2024-09-24] MEDS: ESCITALOPRAM OXALATE 10 MG TABLET PO (21:53)
[2024-09-25 00:30] VITALS: BP 130/72
[2024-09-25] MEDS: ACETAMINOPHEN 500 MG TABLET 1000 MG PO ×3 (04:00→22:45)
[2024-09-25] MEDS: IBUPROFEN 600 MG TABLET PO ×4 (04:00→22:45)
[2024-09-25] MEDS: TETANUS,DIPHTHERIA,AC PERTUSSIS ADULT (0.5 ML) BOOSTRIX IM (08:25)
[2024-09-25] MEDS: DOCUSATE SODIUM 100 MG CAPSULE PO ×2 (08:26→16:21)
[2024-09-25] MEDS: SIMETHICONE 80 MG TAB.CHEW PO ×2 (08:26→16:21)
[2024-09-25] MEDS: MULTIVIT/MIN/PREN/FOL AC/IRON TABLET 1 TAB PO (08:26)
[2024-09-25 08:45] VITALS: BP 128/62; PULSE 71; RESP 18; TEMP 37.3; O2SAT 98
[2024-09-25 12:30] VITALS: BP 128/73; PULSE 71; RESP 16; TEMP 36.9; O2SAT 100
[2024-09-25 17:30] VITALS: BP 134/85
[2024-09-25 19:05] VITALS: BP 146/83; PULSE 74; RESP 18; TEMP 37; O2SAT 98
[2024-09-25] MEDS: ESCITALOPRAM OXALATE 10 MG TABLET PO (22:45)
[2024-09-25 23:00] VITALS: BP 140/71
[2024-09-26] MEDS: ACETAMINOPHEN 500 MG TABLET 1000 MG PO ×2 (04:30→10:34)
[2024-09-26] MEDS: IBUPROFEN 600 MG TABLET PO ×2 (04:30→10:34)
[2024-09-26 04:37] VITALS: BP 142/84
--- NOTE | 2024-09-26 07:05 | P.PNOB_ITS ---
OB - PN: Subj Subjective Date/time seen: 09/25/24 07:05 Patient comments: no complaints, pain well controlled, tolerating diet and flatus present OB - PN: Obj Data Labs 09/24/24 04:15 09/24/24 04:15 OB - PN A/P Plan day: 2 Plan: routine care Comments: patient doing well afebrile, VSS incision C/D/I beck removed, voiding spontaneously continue routine post op care Time Spent With Patient Time: Total time spent is greater than 50% in coordination of care (as documented) at patient's floor/unit and/or counseling patient: Time with patient: less than 15 minutes Review of Systems 2 Constitutional: Constitutional: Reports no additional constitutional complaints Cardiovascular: Cardiovascular: Reports no additional cardiovascular complaints Respiratory: Respiratory: Reports no additional respiratory complaints Gastrointestinal: Gastrointestinal: Reports no additional gastrointestinal complaints Genitourinary: Genitourinary: Reports no additional female genitourinary complaints Exam 2 Const: General: comfortable and no acute distress Resp: Effort & Inspection: normal respiratory effort Auscultation: clear to auscultation bilaterally Cardio: Rate: regular rate GI: GI Palp: Yes Soft to palpation, Yes Tenderness to palpation present (GI) (around incision ) and No Guarding due to palpation present (GI) A uscultation: normal bowel sounds Other: incision C/D/I, covered with Dermabond Psych: Appearance: grossly normal Mental Status: mental status grossly normal Affect: normal affect
[2024-09-26] MEDS: MULTIVIT/MIN/PREN/FOL AC/IRON TABLET 1 TAB PO (08:00)
[2024-09-26] MEDS: DOCUSATE SODIUM 100 MG CAPSULE PO (08:00)
[2024-09-26] MEDS: SIMETHICONE 80 MG TAB.CHEW PO (08:00)
[2024-09-26 09:27] VITALS: BP 139/80; PULSE 76; RESP 18; TEMP 36.9; O2SAT 98
[2024-09-28 10:26] VITALS: BP 143/91; PULSE 75; RESP 18; TEMP 36.8; O2SAT 99
--- NOTE | 2024-09-29 11:22 | P.DS_ITS ---
DS: Admitting Diagnosis Discharge Date 09/26/24 Admitting Diagnosis pre-eclampsia w/ SF DS: Discharge Diagnosis Discharge Diagnosis (1) Pre-eclampsia: Code(s): O14.90 - Unspecified pre-eclampsia, unspecified trimester Status: Acute (2) S/P primary low transverse : Code(s): Z98.891 - History of uterine scar from previous surgery Status: Acute OB - DS: Summary OB Procedures : NST, PIH Mgmt and Ultrasound OB Procedures Intrapartum: low cervical, transverse OB Procedures: : None Peripartum Data Delivery Method: Section Procedures: Procedures Operation Date: 09/23/24 02:40 Actual Procedure Side Surgeon p Section Not Applicable Myra Ellison MD complications: none [place] 1: Gender: Female Disposition of : home Status at Discharge Functional status at discharge: independent ambulation Overall status at discharge: patient is back to baseline Time Spent with Patient Time attestation: Total time spent providing and/or coordinating discharge services: Exam Const: General: cooperative, comfortable and no acute distress Nutritional Appearance: obese Orientation/consciousness: patient oriented x3 Resp: Effort & Inspection: normal respiratory effort Auscultation: clear to auscultation bilaterally Cardio: Rate: regular rate GI: Inspection: non-distended GI Palp: No abdominal tenderness and Yes Soft to palpation Auscultation: normal bowel sounds : Other: fundus firm Skin: General skin exam: normal color Neuro: General: patient oriented x3 Extrem: General: normal to inspection Psych: Appearance: grossly normal Affect: normal affect Attitude: cooperative DS: Data Data Completed and Pending Completed studies during hospitalization: Pending at discharge 09/23/24 04:24 Surgical [PTH] Routine Discharge Plan Discharge Attending physician on discharge: Myra Ellison Discharging Clinician: Mello Quezada Anticipated Discharge Date/Time: 09/25/24 10:00 Patient Disposition: Home Activity: may shower and pelvic rest Diet: regular Discharge Instructions: Education: Mom and Baby Guide Given to: Mother Follow-Up: Call your delivering provider's office for an appointment to be seen in: 4 Weeks Mom and baby should come to the [facility] for the follow-up appointment. Appointment Date/Time: September 28, 2024 at 10:00 am What to expect at your follow-up visit: Blood Pressure Check Physical Assessment Call [phone] if you are unable to keep your appointment time. BREAST CARE: * Wear a snug supportive bra. * For engorgement discomfort: Breast Feeding: * Apply warm moist washcloths * Express milk as needed to relieve engorgement * Wear loose clothing Bottle Feeding: * May apply ice packs * For sore nipples: * Identify correct latch-on * Apply warm moist washcloths before and after nursing * Air dry nipples after nursing * May apply Lansinoh cream to nipples ABDOMINAL INCISION: (if applicable) * Allow incision to air dry * Do NOT use lotions for powders on your incision * When showering, allow soap and water to run over the incision, but do not wash incision Remove dressing on 09/29/24 No lifting over 20 pounds for 6 weeks EPISIOTOMY/PERINEAL CARE: * Until bleeding stops, use your nette bottle after urinating * Change your pad frequently throughout the day * You may take sitz baths several times a day (fill your bathtub with warm water and soak for 20 minutes.) Do NOT bathe in the water * No tub baths until seen by your physician - You may shower ACTIVITY: * Rest as much as possible. * Do not exercise or lift anything heavier than your baby (such as laundry or other children.) * Avoid stairs or driving as much as possible. * Do not put anything into the vagina. No douching, tampons, or sexual activity until seen by physician. NOTIFY PHYSICIAN IF YOU HAVE ANY QUESTIONS OR IF ANY OF THE FOLLOWING SYMPTOMS OCCUR: * If your episiotomy or incision becomes red, swollen, or more painful than what you have experienced in the hospital. * If your vaginal bleeding becomes foul smelling. * If your vaginal bleeding becomes more heavy than a period or if your bleeding changes from pink to bright red. However, you may pass an occasional walnut- sized clot once or twice for the first week . * If you experience a sharp, shooting pain in you calves. * If you discover a hard, reddened area on your breast or if you experience flu- like symptoms. DIET: * Eat regular, well-balanced meals. * Drink plenty of fluids daily. If , drink to thirst. Patient Instructions: Antibiotic Form, (DC) Patient Language: Danish Stand Alone Forms: General Discharge Information Follow-up/Referrals: Myra Ellison MD [Physician] - 4 Weeks Discharge Medications: New acetaminophen 500 mg Tablet 1,000 mg PO Q6HR Qty: 60 0RF docusate sodium 100 mg Capsule 100 mg PO BID Qty: 90 0RF ibuprofen 600 mg Tablet 600 mg PO Q6HR Qty: 40 0RF oxycodone 5 mg Tablet 5 mg PO Q4H PRN (Reason: Pain Rated 4-6) Qty: 18 0RF Continued DHA 200 mg capsule 200 mg PO HS calcium carbonate-vitamin D3 [Calcium 600 + D(3)] 600 mg-5 mcg (200 unit) tablet 1 tablet PO HS escitalopram oxalate 10 mg tablet 10 mg PO HS ondansetron 4 mg tablet,disintegrating 4 mg PO Q6H PRN (Reason: nausea and vomiting) Qty: 30 0RF Discontinued aspirin 81 mg tablet,chewable 81 mg PO DAILY Date of admission: 09/21/24 11:03 Primary Care Provider: PHYSICIAN,DIRECTOR PROJECT MANAGEMENT Admitting Provider: Myra Ellison Attending physician on admission: Myra Ellison Condition: Stable
== END 2024-09-26 11:43 | disposition home or self-care (01) | DRG 788 ==
LOC: ANHOB2 09-23 14:43 → ANHLDR 09-29 12:00
PROVIDERS: Admitting Provider Obstetrics & Gynecology; Visit Provider Student in an Organized Health Care Education/Training Program
PROC: 10D00Z1 Extraction of Products of Conception, Low, Open Approach (ICD-10-PCS; CPT 59514; principal; 2024-09-23 02:40)
DX: O14.14 Severe pre-eclampsia complicating childbirth (principal); Z37.0 Single live birth; Z3A.36 36 weeks gestation of pregnancy; O69.81X0 Labor and delivery complicated by cord around neck, without compression, not applicable or unspecified; O99.824 Streptococcus B carrier state complicating childbirth; F41.8 Other specified anxiety disorders; O99.214 Obesity complicating childbirth; O76 Abnormality in fetal heart rate and rhythm complicating labor and delivery; O99.344 Other mental disorders complicating childbirth; E66.01 Morbid (severe) obesity due to excess calories
CPT/HCPCS: 36415; 80053; 83735; 84550; 85025; 86593; 86850; 86900; 86901; 88307; 90715; J0690; A9270; J0456; J1885; J2004; J2274; J2405; J2590; J2795; J3010; J3105; J3475; J7120

== ENCOUNTER 2024-11-09 14:56 | Outpatient (CLI) | payer OTHER, SELFPAY ==
--- OUTSIDE RECORDS SUMMARY | 2024-11-09 15:11 | XMS_ITS | Clinical Summary ---
Author Organization [facility] Address [address] [place] [address] Care Team Providers Care Top Flavor Attendant Name Role Phone Unavailable Primary Care Provider Unavailabl e Source Comments [facility],non-owned Affiliates and Associated Physician Practices is amultiple site organization consisting of ambulatory clinics and hospital sitesin [place], [place], [place] and [place]. This disclosure is being madepursuant to the Care Everywhere program and may not contain all information available regarding this patient. Last updated 17.[facility] Allergies Active Allergy Reactions Criticality Noted Date [...] last me nstrual period of 01/12/2024 Encounters Date Type Department Care Team Description 09/21/2024 10:02 AM CDT - 09/21/2024 11:59 PM CDT Hospital [facility]counter [facility] [address] [place] [id number] Laureen Zafar MD Discharge Disposition: Home or Self Care 09/14/2024 2:27 PM CDT - 09/14/2024 11:59 PM CDT Hospital Encounter [facility] [address] [place] [id number] Chadwick Farrell MD Discharge Disposition: Home or Self Care 09/09/2024 2:30 PM CDT - 09/09/2024 11:59 PM CDT Hospital Encounter [facility] [address] [place] [id number] Beto Kraft MD Discharge Disposition: Home or Self Care 08/12/2024 2:18 PM CDT - 08/12/2024 11:59 PM CDT Hospital Encounter [facility] [address] [place] [phone] Marleny Cruz MD Discharge Disposition: Home or [...] on file 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 Gender Identity Not on file Sexual Orientation [...] 19+ 3-dose series) 2017 PAP SMEAR 07/20/2019 DEPRESSION SCREENING 02/19/2024 OB-ONE HOUR GLUCOSE 07/12/2024 OB-TDAP CURRENT 2024 OB-RHOGAM INJECTION 07/26/2024 OB-GROUP B STREP SCREEN 09/13/2024 COVID-19 VACCINE (1 - 2023-2 5 season) 2024 INFLUENZA VACCINE (#1) 2024 ZOSTER VACCINE (1 [...] Diagnosis Comments BIOPHYSICAL PROFILE W NST Routine 09/21/2024 10:47 AM CDT 35 weeks gestation of (HCC) Obesity affecting in third trimester, unspecified obesity type (HCC) Preeclampsia, third trimester (HCC) Benign essential hypertension, antepartum (HCC) BIOPHYSICAL PROFILE W NST Routine 09/14/2024 3:25 [...] Months Results * Biophysical Profile w NST (09/21/2024 10:47 AM CDT) Only the most recent of2 resultswithin the time period is included. Linked Results Indication ======== Mild to moderate preeclampsia History ====== OB [...] Date Details Gest. age VAMSHI LMP 01/12/2024 36 w + 1 d 10/18/2024 Stated VAMSHI 36 w + 1 d 10/18/2024 Assigned dating based on the LMP, selected on 06/16/2024 36 w + 1 d 10/18/2024 General Evaluation Cardiac activity present. FHR 151 bpm. Presentation: cephalic Placenta: Placental site: posterior Amniotic Fluid Assessment ==== Amount of AF: normal JO ANN 13.9 cm. Q1 4.4 cm, Q2 1.8 cm, Q3 4.0 cm, Q4 3.7 cm Biophysical Profile 2: breathing movements 2: Gross body movements 2: tone 2: Amniotic fluid volume NST: reactive 11/27 Biophysical profile score Non Stress Test NST interpretation: reactive. Baseline variability: moderate. Decelerations: absent Growth Overview Exam date GA [...] Stomach. Kidneys. Bladder. sex: female. Impression ========= 1) Coulter gestation, 36w1d 2) The amniotic fluid volume is within normal limits 3) Reassuring biophysical profile Comment ======== ultrasound alone cannot detect all structural, genetic, or functional , placental, or maternal abnormalities Follow-up ======== Admission for delivery (for preeclampsia with severe features) Coding ====== Procedures 90271: [place] Uterus Limited 05657: Biophysical Profile W NST [facility] P[facility] Anatomical Region Laterality Modality Other 09/21/2024 10:4 7 AM CDT Myra Ellison MD [facility] ORDERABLES Edited Result - Final * Sonogram - Complete (09/09/2024 3:30 PM CDT) Only the most recent of2 [...] tone 2: Amniotic fluid volume NST: reactive 11/27 Biophysical profile score Non Stress Test NST [...] 5 lb 2 oz EFW by Hadlock ([id number]) appropriate Growth Overview Exam date [place] BPD [...] 1x-weekly BPP pending delivery Coding ====== Procedures 35014: [place] [address]: Biophysical [facility] Anatomical Region Laterality Modality Other 09/09/2024 3:30 PM CDT Myra Ellison MD [facility] ORDERABLES Edited Result - Final from Last 3 Months Insurance [place] [id number] [facility] * Guarantor: KRUPA HELLER Account Type Relation to Patient Date of Phone Billing Address Personal/Family Spouse
[2024-11-09 19:30] LABS: Beta HCG Quantitative < 2.39 mIU/ML
== END 2024-11-09 14:57 | disposition home or self-care (01) ==
LOC: ANHGOSHLAB 14:58
PROVIDERS: Visit Provider Obstetrics & Gynecology
DX: N92.6 Irregular menstruation, unspecified (principal)
CPT/HCPCS: 36415; 84702